=== PATIENT | female | born 1965 | race Caucasian/White ===

== ENCOUNTER 2019-12-19 17:02 | Outpatient (CLI) | payer OTHER, SELFPAY ==
--- NOTE | ~2019-12-19 | XR_ITS ---
EXAMINATION: XR ankle RT min 3V, XR foot RT min 3V EXAM DATE: 12/19/2019 17:38 INDICATION: No known recent injury provided at this time. Pain of the right foot, ankle. TECHNIQUE: Right foot dorsoplantar, lateral and oblique projections obtained and reviewed. Right ank le frontal, lateral and oblique projections obtained and reviewed. There is no prior study for matias mayer. FINDINGS: Right metatarsal bones unremarkable. The right ankle mortise appears intact. There are n o acute fractures or dislocations identified. There is no subcutaneous gas. The soft tissue is unre markable. There are no radiopaque foreign bodies. No periosteal reaction or band of sclerosis to s uggest subacute stress fracture. There are no bony erosions identified. IMPRESSION: 1. Unremarkable right foot, ankle exam. Reviewed, dictated and finalized at location A. IMPRESSION: 1. Unremarkable right foot, ankle exam.
[2019-12-19 18:12] LABS: Basophils Absolute Auto 0.04 K/mm3 (0.00-0.10); Basophils Percent Auto 0.6 % (0.0-1.0); Eosinophils Absolute Auto 0.07 K/mm3 (0.02-0.50); Hematocrit 39.6 % (35.0-49.0); Hemoglobin 12.8 g/dL (12.0-15.0); Immature Granulocyte Absolute 0.01 K/mm3 (0.00-0.00); Immature Granulocyte Percent A 0.1 % (0.0-0.0); Lymphocytes Absolute Auto 2.23 K/mm3 (1.10-4.50); Lymphocytes Percent Auto 32.2 % (18.0-42.0); Mean Corpuscular HGB Conc 32.3 g/dL (32.0-36.0); Mean Corpuscular Hemoglobin 30.7 pg (27.0-31.0); Mean Platelet Volume 10.9 fl (9.2-11.8); Monocytes Absolute Auto 0.49 K/mm3 (0.10-0.90); Monocytes Percent Auto 7.1 % (2.0-11.0); Neutrophils Absolute Auto 4.1 K/mm3 (1.7-7.2); Platelet Count Result 232 K/mm3 (150-420); Red Blood Count 4.17 M/mm3 (4.20-5.40); White Blood Count 6.9 K/mm3 (4.8-10.8)
[2019-12-19 20:11] LABS: Anion Gap 8 mmol/L (8-16); Blood Urea Nitrogen 18 mg/dL (7-18); Carbon Dioxide 31 mmol/L (21-32); Chloride 102 mmol/L (98-108); Estimated Glomerular Filt Rate > 60; Glucose 81 mg/dL (70-99); Magnesium 2.2 mg/dL (1.8-2.4); Osmolality Calculated 292 mOsm/kg (285-295); Sodium 141 mmol/L (136-145); Thyroid Stimulating Hormone 1.93 uIU/mL (0.36-3.74)
[2019-12-23 05:32] LABS: LH 82.2 mIU/mL (***)
== END 2019-12-19 17:03 | disposition home or self-care (01) ==
LOC: CHSLAB 17:07
PROVIDERS: PCP Family Medicine; Visit Provider Family Medicine
DX: M79.10 Myalgia, unspecified site (principal); N91.1 Secondary amenorrhea; M79.604 Pain in right leg
CPT/HCPCS: 36415; 73610; 73630; 80048; 83002; 83735; 84443; 85025

== ENCOUNTER 2019-12-20 21:31 | Emergency (ER) | payer OTHER, SELFPAY ==
--- NOTE | ~2019-12-20 | CT_ITS ---
EXAMINATION: CT brain wo con DATE: 12/20/2019 22:32 INDICATION: Syncope. TECHNIQUE: Computed tomography (CT) of the head was performed without intravenous contrast. The mA wa s adjusted according to patient size. Iterative reconstruction technique was employed. The dose-lengt h product was 605.33 mGy-cm. COMPARISON: None FINDINGS: There is a 1.8 cm mass in left frontoparietal region. There is a 9 mm mass in left frontal lobe. There is extensive vasogenic edema in left frontal and parietal lobes. There is focal vasogenic edema in right frontoparietal region, likely from an occult mass. There is no intracranial hemorrhag e or acute ischemic infarct. There is 4 mm rightward midline shift at the foramen of Monro. There is mild mucosal thickening in the ethmoid sinuses. The mastoid air cells are normal. The orbits are norm al. IMPRESSION: 1. Brain masses, consistent with metastatic disease. Reviewed, dictated and finalized at location A.
--- NOTE | ~2019-12-20 | CT_ITS ---
EXAMINATION: CT chest abdomen pelvis w con DATE: 12/20/2019 22:33 INDICATION: Abdominal bruit. TECHNIQUE: Computed tomography (CT) of the chest, abdomen, and pelvis was performed with 100 mL Omnip aque 350 intravenous contrast. Automated exposure control and iterative reconstruction technique were employed. The dose-length product was 288.72 mGy-cm. COMPARISON: None FINDINGS: CHEST CT: There is mild emphysema. There is mild atelectasis bilaterally. There is mild scarring at the lung ap ices. There is a 3.3 x 2.6 cm mass in right upper lobe. No pleural effusion. The heart size is normal . No pericardial effusion. There is a 6 mm nodule in right thyroid lobe, likely not clinically signif icant. There are no pathologically enlarged lymph nodes. There is severe thoracic spondylosis. ABDOMEN/PELVIS CT: The liver, gallbladder, spleen, pancreas, adrenal glands, and kidneys are normal. There are no dilate d loops of bowel. The appendix is not visualized. Abdominal aorta is normal in caliber. There is mild aortic atherosclerosis. There are no pathologically enlarged lymph nodes. There is no free intraperi toneal fluid. There is mild lumbar spondylosis. IMPRESSION: 1. Right lung upper lobe mass, consistent with primary bronchogenic carcinoma. 2. Mild emphysema. Reviewed, dictated and finalized at location A.
[2019-12-20 21:45] VITALS: BP 125/81; PULSE 62; PULSE 66; RESP 12; TEMP 36.6; O2SAT 100
--- NOTE | 2019-12-20 21:47 | ECG_ITS ---
Measurements Intervals [place] Rate: 74 P: 61 [place]: 150 QRS: 82 QRSD: 88 T: 26 QT: 410 QTc: 457 Interpretive Statements SINUS RHYTHM BASELINE ARTIFACT- II, III, AVR, AVL, AVF, V1-V6 BORDERLINE ECG Electronically Signed On 12-22-2019 7:14:04 CDT by Edy Constantino D.O.
[2019-12-20] MEDS: SODIUM CHLORIDE 0.9% IV 1,000 ML 999 ML IV CONT (22:25)
[2019-12-20 22:42] LABS: Basophils Absolute Auto 0.05 K/mm3 (0.00-0.10); Basophils Percent Auto 0.6 % (0.0-1.0); Eosinophils Percent Auto 1.2 % (1.0-6.0); Hematocrit 34.5 % (35.0-49.0); Hemoglobin 11.3 g/dL (12.0-15.0); Immature Granulocyte Absolute 0.04 K/mm3 (0.00-0.00); Immature Granulocyte Percent A 0.5 % (0.0-0.0); Lymphocytes Absolute Auto 1.55 K/mm3 (1.10-4.50); Lymphocytes Percent Auto 18.7 % (18.0-42.0); Mean Corpuscular HGB Conc 32.8 g/dL (32.0-36.0); Mean Corpuscular Hemoglobin 31.1 pg (27.0-31.0); Mean Platelet Volume 10.2 fl (9.2-11.8); Monocytes Absolute Auto 0.52 K/mm3 (0.10-0.90); Monocytes Percent Auto 6.3 % (2.0-11.0); Neutrophils Percent Auto 72.7 % (50.0-70.0); Platelet Count Result 175 K/mm3 (150-420); Red Blood Count 3.63 M/mm3 (4.20-5.40); Red Cell Distribution Width 12.7 % (11.6-14.4); White Blood Count 8.3 K/mm3 (4.8-10.8)
[2019-12-20 22:59] LABS: Alanine Aminotransferase 19 U/L (14-59); Albumin Level 3.3 g/dL (3.4-5.0); Alkaline Phosphatase 77 U/L (46-116); Anion Gap 7 mmol/L (8-16); Aspartate Amino Transferase 20 U/L (15-37); Bilirubin,Total 0.3 mg/dL (0.00-1.00); Blood Urea Nitrogen 17 mg/dL (7-18); Carbon Dioxide 27 mmol/L (21-32); Chloride 104 mmol/L (98-108); Estimated CRCL calculation 44 ml/min; Estimated Glomerular Filt Rate > 60; Glucose 87 mg/dL (70-99); Osmolality Calculated 286 mOsm/kg (285-295); Potassium 3.7 mmol/L (3.5-5.1); Sodium 138 mmol/L (136-145); Total Protein 6.1 g/dL (6.4-8.2)
[2019-12-20 23:02] LABS: Troponin I < 0.02 ng/mL (0.00-0.056)
--- NOTE | 2019-12-20 23:34 | PC.NURSE ---
REPORT PROVIDED TO TEMITOPE DUONG
--- NOTE | 2019-12-20 23:45 | PC.NURSE ---
REports received, pt. resting c spouse at bedside, ERP discussed reports and need for transfer and f/u care c oncology. PT. and spouse discussing where to go for tx and care. Pt. and spouse request [facility] for cancer tx and will be transferred there if accepted.
--- NOTE | 2019-12-20 23:59 | PC.NURSE ---
Call back from Gurwinder Ritchie, updated report given on pt. and will await callback from hospitalist.
[2019-12-21 00:17] VITALS: BP 134/79; PULSE 69; RESP 18; O2SAT 99
--- NOTE | 2019-12-21 00:18 | ED.SYNCOPE ---
HPI - Syncope General Chief Complaint: Syncope Stated Complaint: ems arrival Source: patient and family Mode of arrival: ambulatory History of Present Illness HPI narrative: this is a 54-year-old female that presents with her after a while they were at home the patient had a syncopal episode witnessed by her lasting approximately 2 to 3 minutes the patient had her eyes open but was unresponsive. The patient had no other symptoms, denies any nausea vomiting no bowel or bladder dysfunction no tongue biting patient has not had a an episode of this nature in the past. Currently the patient has no significant past medical history except for back pain that she takes an occasional Motrin 4. Patient is a smoker approximately 1 pack per day for the last 40 years. Currently the patient feels some that she is lightheaded and has weakness with no neurological deficits, the patient does some expressed that her right foot the arch of the right foot is somewhat contracted that this is been going on for last couple of days and currently no palpitations no chest pain or shortness of breath no nausea vomiting no diarrhea constipation. MD complaint: loss of consciousness Onset (ago): hour(s) Duration of episode: 3 -: minutes(s) Description of event: post-event confusion Prodromal symptoms: none Witnessed: Yes - by Other ( ) Context: at rest Injuries sustained associated with event: none Current symptoms: lightheaded and weakness Related Data Home Medications Medication Instructions Recorded Confirmed No Home Medications 12/20/19 12/20/19 Allergies Allergy/AdvReac Type Severity Reaction Status Date / Time No Known Allergies Allergy Verified 12/20/19 21:49 Review of Systems Review of Systems: All systems reviewed & are unremarkable except as noted in HPI and below [facility] Past Medical History Medical History (Updated 12/21/19 @ 02:23 by Carlton Phillips MD) Chronic back pain Tobacco abuse Exam Const: General: no acute distress and confusion Orientation/consciousness: patient oriented x3 HENMT: Head: normal to inspection Mouth: Yes Normal oral and palatal mucosa present and Yes lip normal Eyes: Conjunctivae: conjunctivae normal Pupils: Equal, round and reactive pupils present EOM: EOMs intact bilaterally Direct Ophthalmoscopy: no photophobia Neck: Neck: normal visual inspection, no lymphadenopathy and no meningeal signs Chest: Chest palpation & inspection: normal inspection of the chest and abnormal inspection of the chest Resp: Effort & Inspection: normal respiratory effort Auscultation: clear to auscultation bilaterally Cardio: Rate: regular rate Rhythm: regular rhythm GI: Auscultation: normal bowel sounds : General: Yes no CVA tenderness Back/Spine/Pelvis: Back: no CVA tenderness Skin: General skin exam: normal color Rashes: no rashes Neuro: General: patient oriented x3, moves all extremities, no meningeal signs and no focal motor deficits Extrem: General: normal to inspection and no pedal edema Psych: Mental Status: mental status grossly normal Course Course Emergency Course: reassessment of patient patient has not had a recent syncopal episode while present in the emergency department, patient continues to have some mild confusion and weakness with lightheadedness. Vital Signs Vital signs: Vital Signs Temperature 36.6 C 12/20/19 21:45 Pulse Rate 62 12/20/19 21:45 Respiratory Rate 12 12/20/19 21:45 Blood Pressure 125/81 12/20/19 21:45 Pulse Oximetry 100 12/20/19 21:45 Temperature 36.3 C L 12/21/19 02:00 Pulse Rate 72 12/21/19 02:00 Respiratory Rate 16 12/21/19 02:00 Blood Pressure 141/78 H 12/21/19 02:00 Pulse Oximetry 99 12/21/19 02:00 MDM - Syncope MDM Narrative Medical decision making narrative: Spoke to [facility] neurology about patient findings and the CT of the brain findings and spoke to Neurology Dr. Polk who has accepted
--- NOTE | 2019-12-21 00:37 | PC.NURSE ---
Call back from Dr. López from [facility], ERP discussing POC. Pt. ambulatory to restroom per self. Per [facility], request for transfer declined and advised transfer to [facility]. Spoke c pt. and spouse, wanting to talk to their daughter about possibly going to [facility].
--- NOTE | 2019-12-21 00:51 | PC.NURSE ---
Spoke c pts. daughter, updates given and family and pt. request transfer to [facility]. Call placed to [facility] for consult and transfer.
[2019-12-21] MEDS: DEXAMETHASONE SOD PHOS INJ 4 MG/ML VIAL 10 MG IV PUSH (01:05)
--- NOTE | 2019-12-21 01:53 | PC.NURSE ---
Call back from [facility] neuro Dr. Polk, spoke to Dr. Phillips and POC to transfer to [facility]. Paperwork signed for transfer and will await callback for assignment and dispo..
[2019-12-21 02:00] VITALS: BP 141/78; PULSE 72; RESP 16; TEMP 36.3; O2SAT 99
[2019-12-21 02:25] VITALS: BP 131/76; PULSE 62; RESP 18; TEMP 36.3; O2SAT 98
--- NOTE | 2019-12-21 02:31 | PC.NURSE ---
Reports given to [facility] via ED-ED report and call placed to [facility] for pt. transfer. Pts. VSS, mon. shows [facility], no c/o at this time. Awaiting EMS for transport.
== END 2019-12-21 02:55 | disposition short-term general hospital (02) ==
PROVIDERS: Emergency Provider Emergency Medicine; PCP Family Medicine
DX: R22.0 Localized swelling, mass and lump, head (principal)
CPT/HCPCS: 36415; 70450; 71260; 74177; 80053; 83605; 83735; 84484; 85025; 93005; 96361; 96374; 99283; 99285; J1100; J7030; Q9965

== ENCOUNTER 2020-07-01 07:32 | Emergency (ER) | payer OTHER, SELFPAY ==
--- NOTE | 2020-07-01 07:59 | ECG_ITS ---
Measurements Intervals [place] Rate: 64 P: 33 [place]: 159 QRS: 62 QRSD: 86 T: 28 QT: 384 QTc: 398 Interpretive Statements SINUS RHYTHM BORDERLINE R WAVE PROGRESSION, ANTERIOR LEADS NONSPECIFIC T-WAVE ABNORMALITY- INFERIOR LEADS BASELINE ARTIFACT- II, III, AVF BORDERLINE ECG Electronically Signed On 07-01-2020 8:28:16 [employer] by Edy Constantino D.O.
[2020-07-01 08:00] VITALS: BP 129/76; PULSE 69; RESP 20; TEMP 36.1; O2SAT 99
[2020-07-01] MEDS: MAG HYDROX/ALUMINUM HYD/SIMETH 30 ML, PHENobarb/HYOSCY/ATROPINE/SCOP 32.4 MG, LIDOCAINE... PO (08:04)
[2020-07-01] MEDS: ONDANSETRON INJ 4 MG/2 ML VIAL IV PUSH (08:05)
[2020-07-01] MEDS: PANTOPRAZOLE SODIUM IV 40 MG VIAL IV PUSH (08:05)
[2020-07-01 08:14] LABS: Basophils Absolute Auto 0.04 K/mm3 (0.00-0.10); Basophils Percent Auto 0.5 % (0.0-1.0); Eosinophils Percent Auto 2.3 % (1.0-6.0); Hematocrit 33.1 % (35.0-49.0); Hemoglobin 11.3 g/dL (12.0-15.0); Immature Granulocyte Absolute 0.03 K/mm3 (0.00-0.00); Immature Granulocyte Percent A 0.4 % (0.0-0.0); Lymphocytes Absolute Auto 0.88 K/mm3 (1.10-4.50); Lymphocytes Percent Auto 10.3 % (18.0-42.0); Mean Corpuscular HGB Conc 34.1 g/dL (32.0-36.0); Mean Corpuscular Hemoglobin 31.3 pg (27.0-31.0); Mean Corpuscular Volume 91.7 fL (78.0-102.0); Mean Platelet Volume 10.2 fl (9.2-11.8); Monocytes Absolute Auto 0.53 K/mm3 (0.10-0.90); Monocytes Percent Auto 6.2 % (2.0-11.0); Neutrophils Absolute Auto 6.9 K/mm3 (1.7-7.2); Neutrophils Percent Auto 80.3 % (50.0-70.0); Platelet Count Result 172 K/mm3 (150-420); Red Blood Count 3.61 M/mm3 (4.20-5.40); Red Cell Distribution Width 12.9 % (11.6-14.4); White Blood Count 8.5 K/mm3 (4.8-10.8)
[2020-07-01 08:32] LABS: Alanine Aminotransferase 114 U/L (14-59); Albumin Level 3.8 g/dL (3.4-5.0); Alkaline Phosphatase 138 U/L (46-116); Anion Gap 7 mmol/L (8-16); Aspartate Amino Transferase 188 U/L (15-37); Bilirubin,Total 0.3 mg/dL (0.00-1.00); Blood Urea Nitrogen 15 mg/dL (7-18); Calcium 8.6 mg/dL (8.5-10.1); Carbon Dioxide 29 mmol/L (21-32); Chloride 103 mmol/L (98-108); Estimated Glomerular Filt Rate > 60; Glucose 99 mg/dL (70-99); Osmolality Calculated 288 mOsm/kg (285-295); Potassium 3.5 mmol/L (3.5-5.1); Sodium 139 mmol/L (136-145); Total Protein 6.6 g/dL (6.4-8.2)
[2020-07-01 08:54] LABS: Appearance Urine Clear (Clear); Bilirubin Urine Negative (Negative); Color Urine Yellow (Yellow); Glucose Urine UA Negative (Negative); Ketones Urine Negative (Negative); Leukocyte Esterase Ur Trace LEU/UL (Negative); Nitrate Urine Negative (Negative); Protein Urine Negative (Negative); Urobilinogen Urine 0.2 mg/dL (0.2-1.0)
[2020-07-01 09:01] LABS: Add Urine Microscopic? YES; Bacteria Urine Trace /hpf; Blood Urine Trace-Intact (Negative); RBC Urine 0-2 /hpf (0-2); Squamous Epithelial Cell Urine Few /hpf (Few); WBC Urine 0-3 /hpf (0-3)
--- NOTE | 2020-07-01 09:07 | ED.ABDPAIN ---
HPI - Abdominal Pain General Chief Complaint: Abdominal Pain Stated Complaint: BURNING IN STOMACH Source: patient and family Mode of arrival: ambulatory Limitations: no limitations History of Present Illness HPI narrative: this is a 55-year-old female ex-smoker that was recently diagnosed with lung cancer with metastases to the brain currently has a port in place, does follow with [facility] cancer center and is receiving chemotherapy. Today the patient presents with severe epigastric burning has tried [id number] medication but she has been nauseated and could not keep that medication down. The patient is having epigastric discomfort burning that she rates about a 710 with no other symptoms except for nausea with no vomiting no flank pain no dysuria no chest pain or shortness of breath. MD elicited complaint: abdominal pain Onset (ago): day(s) Pain Consistency: constant Location: epigastric Severity: moderate Pain scale (0-10): 7 Radiation: none Migration to: no migration Related Data Home Medications Medication Instructions Recorded Confirmed alprazolam 0.5 mg PO TID PRN 07/01/20 07/01/20 levetiracetam 1,000 mg PO BID 07/01/20 07/01/20 Allergies Allergy/AdvReac Type Severity Reaction Status Date / Time No Known Allergies Allergy Verified 12/20/19 21:49 Review of Systems Review of Systems: All systems reviewed & are unremarkable except as noted in HPI and below [facility] Past Medical History Medical History Chronic back pain Tobacco abuse Exam Const: General: no acute distress and alert Orientation/consciousness: patient oriented x3 HENMT: Head: normal to inspection Eyes: Conjunctivae: conjunctivae normal Pupils: Equal, round and reactive pupils present Neck: Neck: normal visual inspection, no lymphadenopathy and no meningeal signs Chest: Chest palpation & inspection: normal inspection of the chest Resp: Effort & Inspection: normal respiratory effort Auscultation: clear to auscultation bilaterally Cardio: Rate: regular rate Rhythm: regular rhythm GI: GI Palp: Yes Tenderness to palpation present (GI) : General: Yes no CVA tenderness Urinary Catheter: Urinary Catheter: patent and draining Back/Spine/Pelvis: Back: no CVA tenderness Neuro: General: patient oriented x3, moves all extremities, no meningeal signs and no focal motor deficits Extrem: General: normal to inspection and no pedal edema Psych: Mental Status: mental status grossly normal Course Course Emergency Course: Reassessment of patient after receiving IV Protonix and a GI cocktail along with Zofran is doing much better as far as her epigastric burning is concerned, advised to keep follow-up appointment at [facility] for her scheduled chemo. Vital Signs Vital signs: Vital Signs Temperature 36.1 C L 07/01/20 08:00 Pulse Rate 69 07/01/20 08:00 Respiratory Rate 20 07/01/20 08:00 Blood Pressure 129/76 07/01/20 08:00 Pulse Oximetry 99 07/01/20 08:00 Temperature 36.1 C L 07/01/20 08:00 Pulse Rate 69 07/01/20 08:00 Respiratory Rate 20 07/01/20 08:00 Blood Pressure 129/76 07/01/20 08:00 Pulse Oximetry 99 07/01/20 08:00 MDM - Abdominal Pain Lab Data Result diagrams: 07/01/20 07:59 07/01/20 07:59 Labs: Lab Results 07/01/20 07/01/20 07/01/20 Range/Units 07:59 07:59 08:45 WBC 8.5 (4.8-10.8) K/mm3 RBC 3.61 L (4.20-5.40) M/mm3 Hgb 11.3 L (12.0-15.0) g/dL Hct 33.1 L (35.0-49.0) % MCV 91.7 (78.0-102.0) fL MCH 31.3 H (27.0-31.0) pg MCHC 34.1 (32.0-36.0) g/dL RDW 12.9 (11.6-14.4) % Plt Count 172 (150-420) K/mm3 MPV 10.2 (9.2-11.8) fl Immature Gran % (Auto) 0.4 H (0.0-0.0) % Neut % (Auto) 80.3 H (50.0-70.0) % Lymph % (Auto) 10.3 L (18.0-42.0) % [place] % (Auto) 6.2 (2.0-11.0) % Eos % (Auto) 2.3 (1.0-6.0) % Baso % (Auto) 0.5
[2020-07-01 09:16] VITALS: BP 116/80; PULSE 89; RESP 16; TEMP 36.2; O2SAT 99
[2020-07-01 09:20] VITALS: BP 116/80; PULSE 89; RESP 20; O2SAT 99
== END 2020-07-01 09:20 | disposition home or self-care (01) ==
PROVIDERS: Nurse Practitioner; Emergency Provider Emergency Medicine; PCP Family Medicine
DX: K52.9 Noninfective gastroenteritis and colitis, unspecified (principal); K57.92 Diverticulitis of intestine, part unspecified, without perforation or abscess without bleeding; K21.9 Gastro-esophageal reflux disease without esophagitis
CPT/HCPCS: 36415; 80053; 81001; 85025; 93005; 96374; 96375; 99283; 99284; A9270; C9113; J2405

== ENCOUNTER 2021-01-29 10:14 | Emergency (ER) | payer OTHER, SELFPAY ==
[2021-01-29 10:50] VITALS: BP 138/87; PULSE 91; RESP 18; TEMP 36.6; O2SAT 100
--- NOTE | 2021-01-29 11:11 | ED.GENADULT ---
HPI - General Adult General Chief complaint: Abdominal Pain Stated complaint: abd pain, nausea, vomiting Source: patient Mode of arrival: ambulatory Limitations: no limitations History of Present Illness HPI narrative: Ilda is a 55F with a PMH of tobacco use, chronic back pain, metastatic lung cancer and GERD that presented to the ED with epigastric pain, nausea and vomiting. She woke up this morning with pain in her epigastric region that radiates to her sides but not back. She has been feeling nauseated. She had non-bloody vomiting. Last BM was yesterday. Her pain isn't as bad now but it is still present. She denies CP, SOB, dysphagia, and diarrhea. She reportedly had a normal CT of her chest and abdomen a few days ago. Related Data Home Medications Medication Instructions Recorded Confirmed alprazolam 0.5 mg PO TID PRN 07/01/20 07/01/20 levetiracetam 1,000 mg PO BID 07/01/20 07/01/20 Allergies Allergy/AdvReac Type Severity Reaction Status Date / Time No Known Allergies Allergy Verified 12/20/19 21:49 Review of Systems Constitutional: Constitutional: Reports no additional constitutional complaints Eyes: Eyes: Reports no additional eye complaints ENT: Reports system reviewed and no additional complaints, except as documented Cardiovascular: Cardiovascular: Reports no additional cardiovascular complaints Respiratory: Respiratory: Reports no additional respiratory complaints Gastrointestinal: Gastrointestinal: Reports as per HPI Genitourinary: Genitourinary: Reports no additional female genitourinary complaints Musculoskeletal: Musculoskeletal: Reports no additional musculoskeletal complaints Integumentary/Breasts: Skin/Breast: Reports system reviewed and no additional complaints, except as docu Neurologic: Reports system reviewed and no additional complaints, except as documented Psychiatric: Psychiatric: Reports no additional psychiatric complaints Endocrine: Endocrine: Reports no additional endocrine complaints Hematologic/Lymphatic: Hematologic/Lymphatic: Reports no additional hematologic/lymphatic complaints Allergic/Immunologic: Allergic/Immunologic: Reports no additional allergic/immunologic complaints [facility] Past Medical History Medical History Chronic back pain Tobacco abuse Exam Const: General: no acute distress and alert Orientation/consciousness: patient oriented x3 Limitations: No altered mental status HENMT: Head: normal to inspection Other: atrauamtic Eyes: Conjunctivae: conjunctivae normal Pupils: Equal, round and reactive pupils present Neck: Neck: normal visual inspection Chest: Chest palpation & inspection: normal inspection of the chest Resp: Effort & Inspection: normal respiratory effort Auscultation: clear to auscultation bilaterally Cardio: Rate: regular rate Rhythm: regular rhythm GI: Inspection: non-distended GI Palp: Yes Soft to palpation, No Tenderness to palpation present (GI) and No Guarding due to palpation present (GI) : General: Yes no CVA tenderness Skin: General skin exam: normal color Rashes: no rashes Neuro: General: patient oriented x3, moves all extremities and no meningeal signs Extrem: General: normal to inspection Psych: Mental Status: mental status grossly normal Course Course Emergency Course: Ilda was evaluated. Ordered zofran and GI cocktail as well as labs. Labs were largely unremarkable. She was given a GI cocktail with good effect. She ate jello without difficulty and was discharged to follow up with her PCP. Vital Signs Vital signs: Vital Signs Temperature 97.9 F 01/29/21 10:50 Pulse Rate 91 01/29/21 10:50 Respiratory Rate 18 01/29/21 10:50 Blood Pressure 138/87 01/29/21 10:50 Pulse Oximetry 100 01/29/21 10:50 Temperature 97.9 F 01/29/21 10:50 Pulse Rate 88 01/29/21 12:08 Respiratory Rate 16 01/29/21 12:08 Blood Pressure 134/87
[2021-01-29 11:28] LABS: Basophils Absolute Auto 0.04 K/mm3 (0.00-0.10); Basophils Percent Auto 0.3 % (0.0-1.0); Eosinophils Absolute Auto 0.09 K/mm3 (0.02-0.50); Eosinophils Percent Auto 0.7 % (1.0-6.0); Hematocrit 35.6 % (35.0-49.0); Hemoglobin 11.7 g/dL (12.0-15.0); Immature Granulocyte Absolute 0.06 K/mm3 (0.00-0.00); Immature Granulocyte Percent A 0.4 % (0.0-0.0); Lymphocytes Absolute Auto 0.46 K/mm3 (1.10-4.50); Lymphocytes Percent Auto 3.4 % (18.0-42.0); Mean Corpuscular HGB Conc 32.9 g/dL (32.0-36.0); Mean Corpuscular Hemoglobin 30.5 pg (27.0-31.0); Monocytes Absolute Auto 0.88 K/mm3 (0.10-0.90); Monocytes Percent Auto 6.4 % (2.0-11.0); Neutrophils Absolute Auto 12.1 K/mm3 (1.7-7.2); Neutrophils Percent Auto 88.8 % (50.0-70.0); Platelet Count Result 230 K/mm3 (150-420); Red Blood Count 3.83 M/mm3 (4.20-5.40); Red Cell Distribution Width 12.5 % (11.6-14.4); White Blood Count 13.7 K/mm3 (4.8-10.8)
[2021-01-29 11:35] LABS: Appearance Urine Clear (Clear); Bilirubin Urine Negative (Negative); Color Urine Light Yellow (Yellow); Glucose Urine UA Negative (Negative); Ketones Urine Negative (Negative); Leukocyte Esterase Ur Trace (Negative); Nitrate Urine Negative (Negative); Protein Urine Negative (Negative); Urobilinogen Urine 0.2 mg/dL (0.2-1.0)
[2021-01-29 11:38] LABS: Add Urine Microscopic? YES; Blood Urine Trace-lysed (Negative); RBC Urine None seen /hpf (0-2); Squamous Epithelial Cell Urine Few /hpf (Few); WBC Urine None seen /hpf (0-3)
[2021-01-29 11:39] LABS: Bacteria Urine Trace /hpf
[2021-01-29 11:40] LABS: Pregnancy On Board Control Positive; Urine Pregnancy Test Negative
[2021-01-29 11:40] LABS: Prothrombin Time 10.5 Seconds (9.50-12.10)
[2021-01-29] MEDS: ONDANSETRON INJ 4 MG/2 ML VIAL IV PUSH (11:44)
[2021-01-29] MEDS: MAG HYDROX/ALUMINUM HYD/SIMETH 30 ML, PHENobarb/HYOSCY/ATROPINE/SCOP 32.4 MG, LIDOCAINE... PO (11:44)
[2021-01-29 11:48] LABS: Alanine Aminotransferase 44 U/L (14-59); Alkaline Phosphatase 89 U/L (46-116); Anion Gap 12 mmol/L (8-16); Aspartate Amino Transferase 54 U/L (15-37); Bilirubin,Total 0.4 mg/dL (0.00-1.00); Blood Urea Nitrogen 20 mg/dL (7-18); Calcium 8.9 mg/dL (8.5-10.1); Carbon Dioxide 28 mmol/L (21-32); Chloride 104 mmol/L (98-108); Estimated Glomerular Filt Rate > 60; Glucose 97 mg/dL (70-99); Lipase 146 U/L (73-393); Osmolality Calculated 300 mOsm/kg (285-295); Potassium 3.7 mmol/L (3.5-5.1); Sodium 144 mmol/L (136-145); Total Protein 6.9 g/dL (6.4-8.2)
[2021-01-29 11:49] LABS: CRP < 0.5 mg/dL (0.0-0.9); Troponin I 5.7 ng/L (0.00-60.4)
--- NOTE | 2021-01-29 12:04 | PC.NURSE ---
pt voices much nausea and pain relief after meds given
[2021-01-29 12:08] VITALS: BP 134/87; PULSE 88; RESP 16; O2SAT 98
== END 2021-01-29 12:54 | disposition home or self-care (01) ==
PROVIDERS: Emergency Provider Family Medicine; PCP Family Medicine
DX: K21.9 Gastro-esophageal reflux disease without esophagitis (principal)
CPT/HCPCS: 36415; 80053; 81001; 81025; 83605; 83690; 84484; 85025; 85610; 86140; 96374; 99283; 99284; A9270; J2405

== ENCOUNTER 2022-03-07 13:31 | Emergency (ER) | payer OTHER, SELFPAY ==
--- NOTE | ~2022-03-07 | XR_ITS ---
XR chest 2V DATE: 03/07/2022 15:14 INDICATION: Cough, fever. History of brain and lung cancer. TECHNIQUE: 2 views COMPARISON: 12/20/2019 CT chest FINDINGS: There is bilateral hyperinflation consistent with COPD. No pulmonary infiltrate or consolidation or pulmonary mass lesion is evident. No pleural effusion or pulmonary vascular congestion or pneumothorax. Normal heart size. Aortic arch calcification. No hilar or mediastinal enlargement. Right Port-A-Cath catheter, tip overlying superior vena cava. IMPRESSION: Right Port-A-Cath catheter in superior vena cava Bilateral hyperinflation consistent with COPD No active cardiopulmonary disease Reviewed, dictated and finalized at location A.
[2022-03-07 13:35] VITALS: BP 153/87; PULSE 87; RESP 18; TEMP 37.3; O2SAT 96
--- NOTE | 2022-03-07 13:47 | ECG_ITS ---
Measurements Intervals [place] Rate: 87 P: 59 DC: 148 QRS: 39 QRSD: 89 T: 21 QT: 292 QTc: 353 Interpretive Statements SINUS RHYTHM POOR R WAVE PROGRESSION, ANTERIOR LEADS NONSPECIFIC T-WAVE ABNORMALITY- INFERIOR LEADS BASELINE ARTIFACT- I, II, III, AVR, AVL, AVF, V6 BORDERLINE ECG COMPARED TO ECG 07/01/2020 08:14:21 NO SIGNIFICANT CHANGES Electronically Signed On 03-07-2022 14:13:06 CDT by Edy Constantino D.O.
[2022-03-07 14:00] VITALS: PULSE 85; RESP 16; O2SAT 94
[2022-03-07] MEDS: ALBUTEROL SULFATE NEB 2.5 MG/3 ML INH 5 MG INHALATION (14:02)
--- NOTE | 2022-03-07 14:05 | ED.GENADULT ---
HPI - General Adult General Chief complaint: Upper Respiratory Infection Stated complaint: fever/cough/not feeling good Time Seen by Provider: 03/07/22 13:44 Source: patient Mode of arrival: ambulatory Limitations: no limitations History of Present Illness HPI narrative: Patient is a 57-year-old white female with a history of brain and lung cancer currently getting immunosuppressive chemo therapy. Presents to the emergency room with cough productive of clear sputum and fever that started 4 days ago. She denies any chest pain shortness of breath or pleuritic chest pain. She said she has been wheezing. She is followed by Dr. Brodie collins oncology. . She is on special chemotherapy and she says she can only take certain medications so as not to disrupt her study medications. She starting on her 3rd year since diagnosis of her lung and brain cancer. She said her brain cancers gone secondary to her oncology treatment. She had some dry heaves this morning. Denies any rash or itching. Denies any other complain Related Data Home Medications Medication Instructions Recorded Confirmed escitalopram oxalate 10 mg tablet 10 mg PO DAILY 03/07/22 03/07/22 prochlorperazine maleate 10 mg 10 mg PO TID PRN Nausea 03/07/22 03/07/22 tablet Allergies Allergy/AdvReac Type Severity Reaction Status Date / Time No Known Allergies Allergy Verified 03/07/22 13:44 Review of Systems Review of Systems: All systems reviewed & are unremarkable except as noted in HPI and below Constitutional: Constitutional: Reports as per HPI, Reports no additional constitutional complaints, Reports fatigue and Reports fever(s) Eyes: Eyes: Reports no additional eye complaints ENT: Reports system reviewed and no additional complaints, except as documented Cardiovascular: Cardiovascular: Reports no additional cardiovascular complaints Respiratory: Respiratory: Reports no additional respiratory complaints, Reports cough, Denies dyspnea and Reports wheezing Gastrointestinal: Gastrointestinal: Reports no additional gastrointestinal complaints, Reports nausea and Reports vomiting Genitourinary: Genitourinary: Reports no additional female genitourinary complaints Musculoskeletal: Musculoskeletal: Reports no additional musculoskeletal complaints Integumentary/Breasts: Skin/Breast: Reports system reviewed and no additional complaints, except as docu Neurologic: Reports system reviewed and no additional complaints, except as documented Psychiatric: Psychiatric: Reports no additional psychiatric complaints Endocrine: Endocrine: Reports no additional endocrine complaints [facility] Past Medical History Medical History (Updated 03/07/22 @ 15:30 by Duke Huffman MD) Brain cancer Chronic back pain Lung cancer Tobacco abuse Exam Narrative: patient is a pleasant white female she appears in no apparent distress blood pressure 153/87 pulse is 87 respirations 18, temperature 37.3? centigrade, O2 sat on room air and 96%. She appears healthy she is alert and oriented x4 there is no limitations to history or physical exam taking. Head normocephalic atraumatic eyes conjunctiva pink sclera nonicteric oropharynx is clear with moist mucous membranes without exudates neck is supple without lymphadenopathy lungs are clear with good air exchange. Heart is regular rate rhythm without murmurs gallops rubs. Abdomen soft nontender no hepatosplenomegaly or masses no CVA tenderness no abdominal bruits. Back is nontender. Extremities no cyanosis clubbing or edema negative Homans sign bilaterally. Neurologic is she is alert and oriented x4. Motor and sensory grossly intact gait is normal speech is normal. Course Course Emergency Course: Discussed with Dr. Brodie Ball nurse Shanna: She said she could have ibuprofen just does not want her to have a round the clock. We can give her any medicine that we want they just wanted know what medicine it was
--- NOTE | 2022-03-07 14:05 | PC.NURSE ---
Covid PCR sent to lab
[2022-03-07 14:10] VITALS: PULSE 84; RESP 16; O2SAT 99
[2022-03-07 14:19] LABS: Basophils Absolute Auto 0.03 K/mm3 (0.00-0.10); Basophils Percent Auto 0.4 % (0.0-1.0); Eosinophils Absolute Auto 0.02 K/mm3 (0.02-0.50); Eosinophils Percent Auto 0.3 % (1.0-6.0); Hematocrit 36.8 % (35.0-49.0); Hemoglobin 12.2 g/dL (12.0-15.0); Immature Granulocyte Absolute 0.02 K/mm3 (0.00-0.00); Immature Granulocyte Percent A 0.3 % (0.0-0.0); Lymphocytes Absolute Auto 0.38 K/mm3 (1.10-4.50); Lymphocytes Percent Auto 5.6 % (18.0-42.0); Mean Corpuscular HGB Conc 33.2 g/dL (32.0-36.0); Mean Corpuscular Hemoglobin 30.1 pg (27.0-31.0); Mean Corpuscular Volume 90.9 fL (78.0-102.0); Monocytes Absolute Auto 0.41 K/mm3 (0.10-0.90); Neutrophils Percent Auto 87.4 % (50.0-70.0); Platelet Count Result 198 K/mm3 (150-420); Red Blood Count 4.05 M/mm3 (4.20-5.40); Red Cell Distribution Width 12.8 % (11.6-14.4); White Blood Count 6.8 K/mm3 (4.8-10.8)
[2022-03-07] MEDS: IBUPROFEN 400 MG TABLET PO (14:27)
[2022-03-07 14:30] VITALS: BP 147/80; PULSE 84; RESP 16; O2SAT 96
[2022-03-07 14:33] LABS: Partial Thromboplastin Time 30.8 SEC (23.90-30.70)
[2022-03-07 14:39] LABS: Alanine Aminotransferase 16 U/L (14-59); Alkaline Phosphatase 83 U/L (46-116); Anion Gap 11 mmol/L (8-16); Aspartate Amino Transferase 19 U/L (15-37); Bilirubin,Total 0.5 mg/dL (0.00-1.00); Blood Urea Nitrogen 11 mg/dL (7-18); Calcium 8.6 mg/dL (8.5-10.1); Carbon Dioxide 26 mmol/L (21-32); Chloride 102 mmol/L (98-108); Estimated CRCL calculation 39 ml/min; Estimated Glomerular Filt Rate 54; Glucose 113 mg/dL (70-99); Magnesium 1.7 mg/dL (1.8-2.4); Osmolality Calculated 288 mOsm/kg (285-295); Potassium 3.4 mmol/L (3.5-5.1); Sodium 139 mmol/L (136-145); Total Protein 7.4 g/dL (6.4-8.2)
[2022-03-07 14:40] LABS: Troponin I 11.9 ng/L (0.00-60.4)
[2022-03-07 14:48] LABS: Influenza A QL RT-PCR Negative (Negative); Influenza B QL RT-PCR Negative (Negative); SARS-CoV-2 RNA PCR Negative (Negative)
[2022-03-07 15:06] LABS: RSV RNA, RT-PCR Positive (Negative)
[2022-03-07 15:45] VITALS: BP 128/80; PULSE 74; RESP 16; TEMP 36.3; O2SAT 95
== END 2022-03-07 15:50 | disposition home or self-care (01) ==
PROVIDERS: Emergency Provider Emergency Medicine; PCP Family Medicine
DX: J44.9 Chronic obstructive pulmonary disease, unspecified (principal); B97.4 Respiratory syncytial virus as the cause of diseases classified elsewhere; Z20.822 Contact with and (suspected) exposure to COVID-19
CPT/HCPCS: 36415; 71046; 80053; 83735; 84484; 85025; 85610; 85730; 87040; 87502; 87637; 93005; 94640; 99284; A9270; U0003; U0005

== ENCOUNTER 2022-07-25 23:37 | Emergency (ER) | payer OTHER, SELFPAY ==
--- NOTE | ~2022-07-25 | CT_ITS ---
CT ANGIOGRAM NECK AND HEAD History: CVA, right hemiparesis. Technique: Serial spiral axial images through the head and neck were obtained during arterial phase I V injection of 100 cc of Omnipaque 350. 3-D postprocessing and MIP images were then reconstructed on the remote workstation. Dose reduction technique was used on this scan by utilizing automated exposur e control and iterative reconstruction technique. The dose-length product (DLP) was 1004.54 mGy-cm. CTA neck findings: Bilateral vertebral arteries are patent. Bilateral common carotid, internal carot id, and external carotid arteries are patent. No stenosis, large vessel occlusion, or aneurysm. The p roximal right internal carotid artery demonstrates 0% stenosis relative to the normal distal artery l umen diameter. The proximal left internal carotid artery demonstrates 0% stenosis relative to the nor mal distal artery lumen diameter. CTA head findings: Distal vertebral arteries, basilar artery, and posterior cerebral arteries are pat ent. Distal internal carotid arteries, middle cerebral arteries, and anterior cerebral arteries are p atent. Incidental note is made of a 2.0 x 1.7 cm mildly irregular pulmonary nodule in the right upper lobe, which is significantly decreased in size as compared to lesion present on prior CT dated 12/20/2019. Impression: No vascular abnormality evident. 2.0 x 1.7 cm right upper lobe pulmonary nodule. This is significantly decrease as compared to 12/20/19 20, and could reflect sequela of treated neoplastic disease. Recurrent disease is difficult to exclud e given the relative time interval between the exams. Correlation with any other prior exams and/or t reatment history is recommended. Reviewed, dictated and finalized at location . Impression: No vascular abnormality evident. 2.0 x 1.7 cm right upper lobe pulmonary nodule. This is significantly decrease as compared to 12/20/2019, and could reflect sequela of treated neoplastic disea se. Recurrent disease is difficult to exclude given the relative time interval between the exams. Correlation with any other prior exams and/or treatment hist ory is recommended.
--- NOTE | ~2022-07-25 | XR_ITS ---
Portable chest x-ray Comparison: 03/07/2022 Clinical History: CVA Findings: Right-sided Mediport is unchanged. Small right apical density is present. Lungs are otherw ise clear. Cardiomediastinal silhouette is stable. Bones and soft tissues are unremarkable. Impression: Stable small right apical density. This could reflect sequelae of treated disease. Stable right-sided Mediport. Reviewed, dictated and finalized at location M. Impression: Stable small right apical density. This could reflect sequelae of treated disea se. Stable right-sided Mediport.
--- NOTE | ~2022-07-25 | CT_ITS ---
Non-contrast Head CT History: CVA COMPARISON: 12/20/2019 Technique: Axial non-contrast imaging of the brain was performed. Dose reduction technique was used on this scan by utilizing automated exposure control and iterative reconstruction technique. The dose -length product (DLP) was 605.33 mGy-cm. Findings: There is no evidence of intracranial hemorrhage, mass lesion, or acute infarct. There are probable minimal chronic white matter changes in the periventricular white matter. The ventricles an d subarachnoid spaces are normal in size. The calvarium appears normal. The visualized paranasal si nuses and mastoid air cells are clear. Impression: No acute abnormality evident. Probable minimal chronic white matter changes. Reviewed, dictated and finalized at location . Impression: No acute abnormality evident. Probable minimal chronic white matter changes.
[2022-07-25 23:37] VITALS: BP 126/67; PULSE 68; RESP 18; TEMP 36.7; O2SAT 98
--- NOTE | 2022-07-25 23:50 | ED.NEUROSD ---
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 Tonight at 10:45 p.m. she was brushing her teeth in her arms did not work. Had slurred speech and right-sided weakness. She brings brought in by her family. No history of stroke she has had history of hypertension anxiety the cancer as above. she goes to [facility] for oncology and currently on immunosuppressive therapy. 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 <Duke Huffman MD - Last Filed: 07/26/22 07:20> Time: 23:37 <Duke Huffman MD - Last Filed: 07/26/22 07:20> Last Observed Normal: 22:45 <Duke Huffman MD - Last Filed: 07/26/22 07:20> Location: speech, right face, dysarthria, right arm and right leg <Duke Huffman MD - Last Filed: 07/26/22 07:20> History of same: No <Duke Huffman MD - Last Filed: 07/26/22 07:20> Severity: moderate <Duke Huffman MD - Last Filed: 07/26/22 07:20> Quality: weak and constant <Duke Huffman MD - Last Filed: 07/26/22 07:20> Relieving factors: none <Duke Huffman MD - Last Filed: 07/26/22 07:20> Exacerbating factors: none <Duke Huffman MD - Last Filed: 07/26/22 07:20> Context: sudden onset <Duke Huffman MD - Last Filed: 07/26/22 07:20> On Anticoagulants: No <Duke Huffman MD - Last Filed: 07/26/22 07:20> Associated symptoms: denies other symptoms and weakness <Duke Huffman MD - Last Filed: 07/26/22 07:20> Treatments Prior to Arrival: none <Duke Huffman MD - Last Filed: 07/26/22 07:20> Related Data Home Medications: Home Medications Medication Instructions Recorded Confirmed escitalopram oxalate 10 mg tablet 10 mg PO DAILY 03/07/22 07/26/22 prochlorperazine maleate 10 mg 10 mg PO TID PRN Nausea 03/07/22 07/26/22 tablet alprazolam 0.5 mg tablet 0.5 mg PO BID 07/26/22 07/26/22 fluticasone propionate 50 50 mcg intranasal DAILY PRN 07/26/22 07/26/22 mcg/actuation nasal Congestion spray,suspension prednisone 5 mg tablet 5 mg PO DAILY 07/26/22 07/26/22 <Duke Huffman MD - Last Filed: 07/26/22 07:20> Allergies/Adverse Reactions: Allergies Allergy/AdvReac Type Severity Reaction Status Date / Time No Known Allergies Allergy Verified 07/26/22 00:12 <Duke Huffman MD - Last Filed: 07/26/22 07:20> Review of Systems Constitutional: Constitutional: Denies body ache(s), Denies chills, Denies daytime sleepiness, Denies fatigue, Denies fever(s), Denies headache(s), Denies increased appetite and Denies lethargy <Duke Huffman MD - Last Filed: 07/26/22 07:20> Eyes: Eyes: Reports no additional eye complaints <Duke Huffman MD - Last Filed: 07/26/22 07:20> ENT: Reports system reviewed and no additional complaints, except as documented, Reports Normal hearing present, Denies dysphagia, Denies dry mouth, Denies epistaxis and Denies mouth pain <Duke Huffman MD - Last Filed: 07/26/22 07:20> Cardiovascular: Cardiovascular: Reports no additional cardiovascular complaints, Denies chest pain, Denies irregular heart rhythm and Denies lightheadedness <Duke Huffman MD - Last Filed: 07/26/22 07:20> Respiratory: Respiratory: Repor
--- NOTE | 2022-07-25 23:51 | ECG_ITS ---
Measurements Intervals [place] Rate: 61 P: 30 MI: 148 QRS: 63 QRSD: 81 T: 16 QT: 405 QTc: 410 Interpretive Statements SINUS RHYTHM NONSPECIFIC ST & T-WAVE ABNORMALITY- DIFFUSE LEADS BASELINE ARTIFACT- II, III, AVR, AVL, AVF BORDERLINE ECG COMPARED TO ECG 03/07/2022 14:02:48 NO SIGNIFICANT CHANGES Electronically Signed On 07-26-2022 6:45:22 CDT by Edy Constantino D.O.
[2022-07-25 23:58] LABS: Glucose Point of Care 93 mg/dl (65-105)
--- NOTE | 2022-07-25 23:59 | PC.NURSE ---
Call placed to [facility] for standby and weather check to [place]. [facility] declined at this time due to weather instabillity.
[2022-07-26] VITALS (76 sets, daily range): BP systolic 109–160; BP diastolic 52–119; PULSE 53–89; RESP 13–20; TEMP 36.5–36.6; O2SAT 92–100
[2022-07-26 00:04] LABS: Basophils Absolute Auto 0.09 K/mm3 (0.00-0.10); Basophils Percent Auto 1.3 % (0.0-1.0); Eosinophils Absolute Auto 0.18 K/mm3 (0.02-0.50); Eosinophils Percent Auto 2.5 % (1.0-6.0); Hematocrit 34.2 % (35.0-49.0); Immature Granulocyte Absolute 0.03 K/mm3 (0.00-0.00); Immature Granulocyte Percent A 0.4 % (0.0-0.0); Lymphocytes Absolute Auto 1.86 K/mm3 (1.10-4.50); Lymphocytes Percent Auto 25.8 % (18.0-42.0); Mean Corpuscular HGB Conc 32.2 g/dL (32.0-36.0); Mean Corpuscular Hemoglobin 29.6 pg (27.0-31.0); Mean Corpuscular Volume 92.2 fL (78.0-102.0); Mean Platelet Volume 10.6 fl (9.2-11.8); Monocytes Absolute Auto 0.77 K/mm3 (0.10-0.90); Monocytes Percent Auto 10.7 % (2.0-11.0); Neutrophils Absolute Auto 4.3 K/mm3 (1.7-7.2); Neutrophils Percent Auto 59.3 % (50.0-70.0); Platelet Count Result 209 K/mm3 (150-420); Red Blood Count 3.71 M/mm3 (4.20-5.40); Red Cell Distribution Width 13.5 % (11.6-14.4); White Blood Count 7.2 K/mm3 (4.8-10.8)
[2022-07-26 00:16] LABS: INR 0.9; Prothrombin Time 10.4 Seconds (9.50-12.10)
[2022-07-26 00:20] LABS: Alanine Aminotransferase 16 U/L (14-59); Albumin Level 3.5 g/dL (3.4-5.0); Alkaline Phosphatase 83 U/L (46-116); Anion Gap 9 mmol/L (8-16); Aspartate Amino Transferase 20 U/L (15-37); Bilirubin,Total 0.2 mg/dL (0.00-1.00); Blood Urea Nitrogen 13 mg/dL (7-18); Calcium 8.5 mg/dL (8.5-10.1); Carbon Dioxide 30 mmol/L (21-32); Chloride 105 mmol/L (98-108); Estimated Glomerular Filt Rate 45; Glucose 93 mg/dL (70-99); Osmolality Calculated 298 mOsm/kg (285-295); Sodium 144 mmol/L (136-145); Total Protein 6.6 g/dL (6.4-8.2); Troponin I 9.9 ng/L (0.00-60.4)
[2022-07-26 00:21] LABS: Ethanol < 3 mg/dL (0-6)
[2022-07-26 01:05] LABS: Appearance Urine Clear (Clear); Color Urine Light Yellow (Yellow)
[2022-07-26 01:06] LABS: Bilirubin Urine Negative (Negative); Blood Urine Negative (Negative); Glucose Urine UA Negative (Negative); Ketones Urine Negative (Negative); Leukocyte Esterase Ur Trace LEU/UL (Negative); Nitrate Urine Negative (Negative); Protein Urine Negative (Negative); Urobilinogen Urine 0.2 mg/dL (0.2-1.0)
[2022-07-26 01:10] LABS: Add Urine Microscopic? YES; Bacteria Urine Trace /hpf; RBC Urine 0-2 /hpf (0-2); Squamous Epithelial Cell Urine Rare /hpf (Few); WBC Urine 0-3 /hpf (0-3)
[2022-07-26 02:06] LABS: SARS-CoV-2 RNA PCR Negative (Negative)
--- NOTE | 2022-07-26 09:34 | PC.NURSE ---
0930 order received for pt to take her home meds pt passed swallow tests breakfast ordered
--- NOTE | 2022-07-26 09:39 | PC.NURSE ---
yellow fall clasp applie to pt arm band
--- NOTE | 2022-07-26 18:35 | PC.NURSE ---
On 07/26/22, the student, [dominique hallman ], provided care and completed [facility] documentation on this patient. I have reviewed the student's documentation and agree with the findings.
--- NOTE | 2022-07-26 19:02 | PC.NURSE ---
[id number] pt took home meds brought by pt took meds without difficulty
--- NOTE | 2022-07-26 19:11 | PC.NURSE ---
Care resumed, report received, pt resting, no distress, watching TV, call mcintosh at pt side, continuing to monitor until bed available at [place].
--- NOTE | 2022-07-26 19:40 | PC.NURSE ---
Pt assisted x1 into w/c and to BR to urinate, pt back to bed s little assistance.
--- NOTE | 2022-07-26 20:03 | PC.NURSE ---
Pt given her Xanax HS med from home per MD schafer.
--- NOTE | 2022-07-26 20:04 | PC.NURSE ---
Call placed to [facility] and report given, pt going to [facility] [id number] Bed 1.
--- NOTE | 2022-07-26 20:37 | PC.NURSE ---
[facility] here for pt transfer. Report given, pt taken to BR to urinate and placed on cot s difficulty. VSS.
== END 2022-07-26 20:41 | disposition short-term general hospital (02) ==
PROVIDERS: Emergency Medicine; Emergency Provider Emergency Medicine; PCP Family Medicine
DX: G81.91 Hemiplegia, unspecified affecting right dominant side (principal); C34.90 Malignant neoplasm of unspecified part of unspecified bronchus or lung; C79.31 Secondary malignant neoplasm of brain; Z20.822 Contact with and (suspected) exposure to COVID-19
CPT/HCPCS: 36415; 70450; 70496; 70498; 71045; 80053; 80307; 81001; 82948; 84484; 85025; 85610; 85730; 93005; 99285; Q9967; U0003; U0005

== ENCOUNTER 2022-08-14 13:00 | Outpatient (RCR) | payer OTHER, SELFPAY ==
--- NOTE | 2022-08-14 14:50 | PTOPEVAL1 ---
Assessment and note entered by Carlton De Leon Evaluation Information Assessment Status Evaluation Diagnosis right sided weakness due to stroke Onset 07/25/22 Subjective Information Pt. reports that on the night of 07/25/22 she developed weakness in the right arm. She immediately went to the hospital and was in [place] for 1 week. She reports that she was in [facility] for 1 week following that stay. She states that she is having most difficulty with the right hand. She is right hand dominant. She states that she has some weakness in the right leg, but it is minimal and she can now walk. She denies any pain. She states that she requires assist to get into and out of the bathtub. She also notes that she needs some help with grooming, but is able to dress herself. 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 Reported Pain Level Pain Score 0: Self Report Assessment PT Clinical Summary Pt. is a 57 year old female who enters the clinic with right u.e. and l.e. weakness following CVA. She presents with impaired u.e. and l.e. strength, impaired balance, impaired gait and functional decline. Continued skilled PT is indicated in order to improve these areas to allow the pt. 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 Plan of Care Interventions Gait Training,Manual Therapy,Neuro Re-education, Patient/Caregiver Educati,Therapeutic Activities, Therapeutic Exercise,Self-Care/Home Management PT Services Indicated Yes Treatment Frequency and 3x/week x 12 visits Duration These treatments will address the objective and functional deficits as defined above. The patient will be advanced safely and appropriately in order for the patient to progress towards his/her prior level of function. Additional exercises will be introduced and as well as a comprehensive home exercise program upon discharge, if needed, ?to ensure carryover of functional gains achieved in the clinic. This treatment plan has been reviewed and agreement upon by the patient.
--- NOTE | 2022-09-12 18:08 | PTOPPROGNS ---
Assessment and note entered by Wanda Bee DPT Evaluation Information Assessment Status Progress Diagnosis right sided weakness due to stroke Onset 07/25/22 Subjective Information Ilda reports that she he has noticed an improvement in LE strength and endurance. She reports that she does notice a bit of a limp. 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 Assessment PT Clinical Summary Mrs. Huff has attended 10 visits of PT with improvements in balance and strength. 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 She will benefit from continued skilled PT with increased focus of R hand fine motor skills. Plan of Care Interventions Gait Training,Manual Therapy,Neuro Re-education, Patient/Caregiver Educati,Therapeutic Activities, Therapeutic Exercise,Self-Care/Home Management PT Services Indicated Yes Treatment Frequency and continue with current POC Duration These treatments will address the objective and functional deficits as defined above. The patient will be advanced safely and appropriately in order for the patient to progress towards his/her prior level of function. Additional exercises will be introduced and as well as a comprehensive home exercise program upon discharge, if needed, ?to ensure carryover of functional gains achieved in the clinic. This treatment plan has been reviewed and agreement upon by the patient.
--- NOTE | 2022-09-21 10:54 | PTOPREEVAL ---
Assessment and note entered by JT File, PT Evaluation Information Assessment Status Re-evaluation Diagnosis right sided weakness due to stroke Onset 07/25/22 Subjective Information patient reports she feels good this date. she reports she feels she is doing well with her walking and balance. however, she reports she feels her R UE is still weak. she reports she also still limps and would like to walk without a limp . Reported Pain Level Pain Score 0: Self Report Assessment PT Clinical Summary mrs. wilder presents to skilled PT services for her 12th skilled therapy visit. as of today, she presents with improvements in strength, balance, coordination, ambulation, and endurance. however, she continues to display weakness in the R UE, classification and treatment director weakness, decreased coordination of the feet, and abnormal gait mechanics. she has met more than 50% of goals, and made progress toward all other. she displays low fall risk per the tinetti, TUG, and 5x sit to stand. she also displays adequate endurance and gait speed, but continued abnormalities in gait mechanics. she would benefit from continued skilled PT to achieve remaining goals and return to her prior level functional activity performance/quality of life. Plan of Care Interventions Gait Training,Manual Therapy,Neuro Re-education, Patient/Caregiver Educati,Therapeutic Activities, Therapeutic Exercise,Self-Care/Home Management PT Services Indicated Yes Treatment Frequency and continue skilled PT 2x weekly for 6 more visits Duration These treatments will address the objective and functional deficits as defined above. The patient will be advanced safely and appropriately in order for the patient to progress towards his/her prior level of function. Additional exercises will be introduced and as well as a comprehensive home exercise program upon discharge, if needed, ?to ensure carryover of functional gains achieved in the clinic. This treatment plan has been reviewed and agreement upon by the patient.
--- NOTE | 2022-10-09 08:19 | PTOPDC ---
Assessment and note entered by Wanda Bee DPT Evaluation Information Assessment Status Re-evaluation Diagnosis right sided weakness due to stroke Onset 07/25/22 Subjective Information Patient reports much improvement in use of R hand. She states she has been able to wash her own hair and open objects. She reports return to MD . Assessment PT Clinical Summary Patient was seen for 18 visits of skilled PT with good improvements in LE strength, balance, and use of R UE. She has improved ability to perform personal hygiene tasks and house hold tasks. She has not returned to work at this time. Patient is independent with HEP and will be discharged to independent HEP at this time. Plan of Care PT Services Indicated No
--- NOTE | 2022-10-20 12:13 | BUOTOPEVAL ---
Assessment and note entered by Mikala Rueda, OT Evaluation Information Assessment Status Evaluation Diagnosis Basal ganglia stroke Onset July 2022 Reported Pain Level Pain Score 0: Self Report Pain Score 0: Self Report Pain Score 0: Self Report Pain Score 0: Self Report Pain Score 0: Self Report Pain Score 0: Self Report Pain Score 0: Self Report Pain Score 0: Self Report Pain Score 0: Self Report Pain Score 0: Self Report Pain Score 0: Self Report Pain Score 0: Self Report Pain Score 0: Self Report Pain Score 0: Self Report Pain Score 0: Self Report Pain Score 0: Self Report Pain Score 0: Self Report Pain Score 0: Self Report Pain Score 0: Self Report Pain Score 0: Self Report Additional Pain Score Comments Pt. has no c/o pain. Assessment OT Clinical Summary The patient is a 57 year old female who was referred to outpatient OT due to R sided weakness from stroke. The patient's PMH includes but is not limited to cancer, stroke. 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 The patient previously demonstrated WNL endurance, UE strength, command and control systems integrator/ pinch and fine motor coordination. The patient requires skilled OT to address current deficits and return to PLOF needed to complete ADLs and care for loved ones. Plan of Care Interventions Therapeutic Exercise,Manual Therapy,Neuro Re- education,Therapeutic Activities,Hot Pack/Cold Pack,Electrical Stimulation,Self-Care/Home Management OT Services Indicated Yes Treatment Frequency and 2x/week for 10 visits. Duration These treatments will address the objective and functional deficits as defined above. The patient will be advanced safely and appropriately in order for the patient to progress towards his/her prior level of function. Additional exercises will be introduced and as well as a comprehensive home exercise program upon dischar
--- NOTE | 2022-12-05 16:42 | BUOTOPEVAL ---
Assessment and note entered by Mikala Rueda OT Evaluation Information Assessment Status Re-evaluation Diagnosis Basal ganglia stroke Onset July 2022 Subjective Information The patient reports no pain. The patient reports no numbness or tingling but is unable to identify all items from bin with vision occluded during re- evaluation. Reported Pain Level Pain Score 0: Self Report Pain Score 0: Self Report Pain Score 0: Self Report Pain Score 0: Self Report Pain Score 0: Self Report Pain Score 0: Self Report Pain Score 0: Self Report Pain Score 0: Self Report Pain Score 0: Self Report Pain Score 0: Self Report Pain Score 0: Self Report Pain Score 0: Self Report Pain Score 0: Self Report Pain Score 0: Self Report Pain Score 0: Self Report Pain Score 0: Self Report Pain Score 0: Self Report Pain Score 0: Self Report Pain Score 0: Self Report Pain Score 0: Self Report Pain Score 0: Self Report Pain Score 0: Self Report Additional Pain Score Comments Pt. has no c/o pain. 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 The patient continues to require skilled OT to address these deficits and will continue to engage in therapeutic exercise and activities following hospitalization to improve function and increase independence. Plan of Care Interventions Therapeutic Exercise,Manual Therapy,Neuro Re- education,Therapeutic Activities,Hot Pack/Cold Pack,Electrical Stimulation,Self-Care/Home Management OT Services Indicated Yes Treatment Frequency and 2x/week for 12 visits. Duration
== END 2022-12-05 20:00 | disposition still patient (30) ==
LOC: CHSPT 13:00
DX: I63.81 Other cerebral infarction due to occlusion or stenosis of small artery (principal); R53.1 Weakness
CPT/HCPCS: 97110; 97112; 97161; 97165; 97168; 97530; 97750

== ENCOUNTER 2022-10-25 11:50 | Emergency (ER) | payer OTHER, SELFPAY ==
--- NOTE | ~2022-10-25 | CT_ITS ---
CT head without contrast Indication: Slurred speech, weakness Technique: Serial scans were obtained through the brain without the administration of contrast. Dose reduction technique was used on this scan by utilizing automated exposure control and iterative recon struction technique. The dose-length product (DLP) was 605.33 mGy-cm. Findings: There is no evidence of intracranial hemorrhage, mass lesion, or acute infarct. The ventri cles and subarachnoid spaces are unremarkable. There are focal low attenuation regions in the bilater al basal ganglia, likely representing changes from chronic microvascular ischemic disease. There is n o evidence of edema, mass effect or midline shift. The visualized paranasal sinuses and mastoid air cells are clear. Impression: Focal low attenuation areas in the bilateral basal ganglia, likely chronic microvascular ischemic ervin nge. If there is concern for focal acute ischemia, then MR is recommended for further evaluation. Reviewed, dictated and finalized at location M. Impression: Focal low attenuation areas in the bilateral basal ganglia, likely chronic micr ovascular ischemic change. If there is concern for focal acute ischemia, then M R is recommended for further evaluation.
--- NOTE | ~2022-10-25 | CT_ITS ---
EXAMINATION: CT abdomen pelvis w con DATE: 10/25/2022 14:20 INDICATION: Elevated liver function tests. History of carcinoma. TECHNIQUE: Computed tomography (CT) of the abdomen and pelvis was performed without intravenous contr ast. The dose-length product was 202.24 mGy-cm. Automated exposure control and iterative reconstructi on technique were employed. COMPARISON: CT dated 12/20/2019. FINDINGS: Lung bases are unremarkable. There is dependent atelectasis. Heart size is normal. There is atherosclerosis of the aorta without aneurysm. No lymphadenopathy. No significant pleural or pericar dial effusion. The liver, spleen, pancreas, adrenal glands and kidneys are unremarkable. Gallbladder is present. Nonobstructive bowel pattern. There is mild thickening of the gastric wall. Cannot exclud e gastritis. There is grade 1 spondylolisthesis at L4-5 secondary to facet hypertrophy. No focal lyti c or blastic lesions. IMPRESSION: 1. Mild thickening of the gastric wall, suspicious for gastritis. Reviewed, dictated and finalized at location []
--- NOTE | ~2022-10-25 | US_ITS ---
EXAMINATION: US abdomen limited DATE: 10/25/2022 15:25 INDICATION: elevated LFT's TECHNIQUE: Multiple grayscale and Doppler ultrasound images of limited portions of the abdomen were o btained. COMPARISON: CT abdomen and pelvis, same date. FINDINGS: The visualized portions of the pancreas are normal. The liver is normal with normal echogen icity and echotexture. No surface nodularity. Normal hepatopetal flow in the main portal vein. The ga llbladder is contracted. The common bile duct measures 2 mm. There was no sonographic Martinez sign. IMPRESSION: Contracted gallbladder which significantly limits evaluation for gallbladder pathology. Otherwise nor mal limited abdominal ultrasound findings. Reviewed, dictated and finalized at location K. IMPRESSION: Contracted gallbladder which significantly limits evaluation for gallbladder pa thology. Otherwise normal limited abdominal ultrasound findings.
--- NOTE | 2022-10-25 11:58 | ED.WEAKNESS ---
HPI - Weakness General Chief complaint: Weakness Stated complaint: slurred speech Time Seen by Provider: 10/25/22 11:55 History of Present Illness HPI Narrative: Pt presents with generalized weakness and slurred speech for 4 days. Pt has hx of cva with right sided deficit ans slurred speech. deficit has improved and sometimes she gets slurred speech when tired but it has been more persistent last few days even when she is not tired. Pt also feels generally weak. Pt denies LORENZO. Daughter called neurologist at [place] who recommended CT and work up for weakness. Related Data Home Medications Medication Instructions Recorded Confirmed escitalopram oxalate 10 mg tablet 10 mg PO DAILY 03/07/22 10/25/22 prochlorperazine maleate 10 mg 10 mg PO TID PRN Nausea 03/07/22 10/25/22 tablet alprazolam 0.5 mg tablet 0.5 mg PO BID 07/26/22 10/25/22 fluticasone propionate 50 50 mcg intranasal DAILY PRN 07/26/22 10/25/22 mcg/actuation nasal Congestion spray,suspension prednisone 5 mg tablet 5 mg PO DAILY 07/26/22 10/25/22 Allergies Allergy/AdvReac Type Severity Reaction Status Date / Time No Known Allergies Allergy Verified 10/25/22 12:29 Review of Systems Review of Systems: All systems reviewed & are unremarkable except as noted in HPI and below PMFSH Past Medical History Medical History Brain cancer Chronic back pain Lung cancer Tobacco abuse Family History Family History Other Family history normal Social History Social History Smoking packs per day: 1 Smoking cigarettes per day: 20.0 Years smoked: 40 Smoking pack-years: 40.00 Smoking status: Former smoker Smoking end date: 12/20/19 Alcohol intake: never Substance use: never Spiritual care concerns: No Exam Const: General: healthy appearing Nutritional Appearance: well nourished Orientation/consciousness: patient oriented x3 Limitations: no limitations HENMT: Head: normal to inspection Mouth: Yes Normal oral and palatal mucosa present Eyes: Conjunctivae: conjunctivae normal Pupils: Equal, round and reactive pupils present EOM: EOMs intact bilaterally Resp: Effort & Inspection: normal respiratory effort Auscultation: clear to auscultation bilaterally Cardio: Rate: regular rate Rhythm: regular rhythm GI: GI Palp: Yes Soft to palpation Skin: General skin exam: normal color Neuro: General: patient oriented x3, moves all extremities, no meningeal signs, no focal motor deficits and CN's II-XI intact bilaterally Cranial nerves: Yes Nystagmus not present Speech: Abnormal speech present slurred (slight) Extrem: General: normal to inspection and no clubbing, cyanosis or edema Psych: Mental Status: mental status grossly normal Affect: normal affect Attitude: cooperative Course Vital Signs Vital signs: Vital Signs Temperature 98.4 F 10/25/22 12:13 Pulse Rate 98 10/25/22 12:13 Respiratory Rate 18 10/25/22 12:13 Blood Pressure 109/78 10/25/22 12:13 Pulse Oximetry 96 10/25/22 12:13 Oxygen Delivery Room Air 10/25/22 12:13 Temperature 98.7 F 10/25/22 21:33 Pulse Rate 79 10/26/22 06:03 Respiratory Rate 14 10/26/22 06:03 Blood Pressure 104/70 10/26/22 06:03 Pulse Oximetry 97 10/26/22 06:03 Oxygen Delivery Room Air 10/26/22 06:03 MDM - Weakness MDM Narrative Medical decision making narrative: 57 y/o female with hx of cva with right sided deficit and slurred speech as well as lung CA with mets to brain presents with 4 days of generalized weakness and more persistent slurred speech. Neurologist at [place] asked for pt to be evaluated with CT brain to rule out bleed and work up for weakness. CT brain neg for bleed, LFT's very elevated on CMP, CT abd/pelvis ordered which did not show any mets to liver or abnormal
[2022-10-25 12:13] VITALS: BP 109/78; PULSE 98; RESP 18; TEMP 36.9; O2SAT 96
[2022-10-25 12:29] LABS: Basophils Percent Auto 1.4 % (0.0-1.0); Eosinophils Absolute Auto 0.11 K/mm3 (0.02-0.50); Eosinophils Percent Auto 1.5 % (1.0-6.0); Hematocrit 33.2 % (35.0-49.0); Hemoglobin 11.4 g/dL (12.0-15.0); Immature Granulocyte Absolute 0.03 K/mm3 (0.00-0.00); Immature Granulocyte Percent A 0.4 % (0.0-0.0); Lymphocytes Absolute Auto 0.74 K/mm3 (1.10-4.50); Lymphocytes Percent Auto 10.4 % (18.0-42.0); Mean Corpuscular HGB Conc 34.3 g/dL (32.0-36.0); Mean Corpuscular Hemoglobin 28.4 pg (27.0-31.0); Mean Corpuscular Volume 82.8 fL (78.0-102.0); Mean Platelet Volume 12.5 fl (9.2-11.8); Monocytes Absolute Auto 0.95 K/mm3 (0.10-0.90); Monocytes Percent Auto 13.3 % (2.0-11.0); Neutrophils Absolute Auto 5.2 K/mm3 (1.7-7.2); Platelet Count Result 170 K/mm3 (150-420); Red Blood Count 4.01 M/mm3 (4.20-5.40); White Blood Count 7.1 K/mm3 (4.8-10.8)
[2022-10-25 12:30] VITALS: BP 116/72; PULSE 83; RESP 16; TEMP 36.5; O2SAT 98
[2022-10-25 12:43] LABS: Partial Thromboplastin Time 36.5 SEC (23.90-30.70); Prothrombin Time 11.3 Seconds (9.50-12.10)
[2022-10-25 12:55] LABS: Albumin Level 2.7 g/dL (3.4-5.0); Anion Gap 11 mmol/L (8-16); Bilirubin,Total 9.3 mg/dL (0.00-1.00); Blood Urea Nitrogen 18 mg/dL (7-18); Calcium 8.2 mg/dL (8.5-10.1); Carbon Dioxide 25 mmol/L (21-32); Chloride 98 mmol/L (98-108); Estimated CRCL calculation 36 ml/min; Estimated Glomerular Filt Rate 43; Glucose 107 mg/dL (70-99); Osmolality Calculated 279 mOsm/kg (285-295); Sodium 134 mmol/L (136-145); Total Protein 6.3 g/dL (6.4-8.2)
[2022-10-25 12:58] LABS: Alkaline Phosphatase > 1000 U/L (46-116)
[2022-10-25 13:12] LABS: Alanine Aminotransferase > 1000 U/L (14-59); Aspartate Amino Transferase > 796 U/L (15-37)
[2022-10-25 14:01] LABS: Appearance Urine Slightly Cloudy (Clear); Bilirubin Urine 3+ (Negative); Blood Urine 3+ (Negative); Glucose Urine UA Trace (Negative); Ketones Urine Trace (Negative); Leukocyte Esterase Ur Trace LEU/UL (Negative); Nitrate Urine Negative (Negative); Protein Urine 3+ (Negative); Specific Grav Ur 1.025 (1.010-1.020); Urobilinogen Urine >=8.0 mg/dL (0.2-1.0); pH Urine 6.5 (5.0-8.0)
[2022-10-25 14:06] LABS: Add Urine Microscopic? YES; Bacteria Urine 2+ /hpf; Color Urine Dark Orange (Yellow); Squamous Epithelial Cell Urine Few /hpf (Few); WBC Urine 0-3 /hpf (0-3)
[2022-10-25 14:30] VITALS: BP 115/81; PULSE 69; RESP 16; TEMP 36.4; O2SAT 97
[2022-10-25 16:43] VITALS: BP 117/71; PULSE 71; RESP 14; TEMP 36.3; O2SAT 97
[2022-10-25 18:40] VITALS: BP 121/60; PULSE 77; RESP 18; TEMP 36.3; O2SAT 97
--- NOTE | 2022-10-25 19:38 | PC.NURSE ---
Pt waiting on bed assignment at [facility], pt is resting and has no requests at this time.
[2022-10-25 21:33] VITALS: BP 122/79; PULSE 77; RESP 13; TEMP 37.1; O2SAT 96
[2022-10-26] VITALS (8 sets, daily range): BP systolic 104–131; BP diastolic 63–74; PULSE 62–82; RESP 14–18; TEMP 36.4–36.8; O2SAT 94–98
--- NOTE | 2022-10-26 01:02 | PC.NURSE ---
Pt up to bathroom by self, no current requests at this time. pt back in bed resting.
--- NOTE | 2022-10-26 03:52 | PC.NURSE ---
Pt continues to rest comfortably.
--- NOTE | 2022-10-26 06:10 | PC.NURSE ---
pt up to bathroom.
--- NOTE | 2022-10-26 06:10 | PC.NURSE ---
still waiting on bed assignment at [facility].
--- NOTE | 2022-10-26 19:20 | PC.NURSE ---
Assumed care of pt from TEMITOPE Nassar. Per Maday, pt appears more jaundiced today compared to her assessment yesterday especially to sclera. Pt has been taking home meds as prescribed. 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 Pt was brought to ED for worsening of speech per family report. Pt currently A&Ox4. Pt reports is feeling tired and is tired of being in ED. Pt is calm and cooperative and answers all questions appropriately at this time. PT denies the presence of pain. Pt does have some dysarthria noted but communication is not hindered. Pt voices no needs at this time. Pt does have jaundice hue noted to skin and to sclera. Pt calling to bring home meds for her this evening. Call light in reach. Bed in lowest position and locked. Side rails up x 1. Non-slip hospital socks provided. Remain awaiting bed from [facility] per off-going report will likely not happen tonight.
--- NOTE | 2022-10-26 19:57 | PC.NURSE ---
Pt took her home medication Xanax 0.5 mg and ASA 325 mg as has been permitted while in dept.
[2022-10-26 20:04] LABS: Albumin Level 2.5 g/dL (3.4-5.0); Anion Gap 8 mmol/L (8-16); Bilirubin,Total 9.2 mg/dL (0.00-1.00); Blood Urea Nitrogen 15 mg/dL (7-18); Calcium 8.1 mg/dL (8.5-10.1); Carbon Dioxide 26 mmol/L (21-32); Chloride 100 mmol/L (98-108); Estimated CRCL calculation 42 ml/min; Estimated Glomerular Filt Rate 52; Glucose 109 mg/dL (70-99); Osmolality Calculated 279 mOsm/kg (285-295); Potassium 3.4 mmol/L (3.5-5.1); Sodium 134 mmol/L (136-145)
[2022-10-26 20:05] LABS: Alanine Aminotransferase > 1000 U/L (14-59); Aspartate Amino Transferase > 796 U/L (15-37)
[2022-10-26 20:06] LABS: Alkaline Phosphatase > 1000 U/L (46-116)
[2022-10-26 20:14] LABS: Ammonia 52 umol/L (11-32)
[2022-10-26] MEDS: POTASSIUM BICARBONATE 25 MEQ TABEF 50 MEQ PO (20:14)
--- NOTE | 2022-10-26 21:15 | PC.NURSE ---
Pt had emesis after completing potassium drink. ERP aware and states will hold for now on administering any more potassium PO.
--- NOTE | 2022-10-26 23:31 | PC.NURSE ---
Pt awakens to voice for vital signs. Pt voices no new needs or complaints is oriented x 4 upon awakening. Vitals obtained. Update provided to Yamilex, at [facility] Access Line at this time. Per Yamilex no ETA on bed.
[2022-10-27 03:18] VITALS: BP 112/69; PULSE 68; RESP 12; TEMP 36.4; O2SAT 96
--- NOTE | 2022-10-27 03:19 | PC.NURSE ---
Pt resting with eyes closed and rhythmic breathing. PT awakens to voiced and is oriented x 4. Vitals obtained. Fresh water provided. IV flushed with no s/s infiltration.
[2022-10-27 06:12] LABS: Albumin Level 2.3 g/dL (3.4-5.0); Anion Gap 6 mmol/L (8-16); Blood Urea Nitrogen 17 mg/dL (7-18); Calcium 8.2 mg/dL (8.5-10.1); Carbon Dioxide 28 mmol/L (21-32); Chloride 102 mmol/L (98-108); Estimated CRCL calculation 46 ml/min; Estimated Glomerular Filt Rate 60; Glucose 80 mg/dL (70-99); Osmolality Calculated 282 mOsm/kg (285-295); Potassium 3.1 mmol/L (3.5-5.1); Sodium 136 mmol/L (136-145); Total Protein 5.7 g/dL (6.4-8.2)
[2022-10-27 06:36] LABS: Alanine Aminotransferase > 1000 U/L (14-59); Alkaline Phosphatase > 1000 U/L (46-116); Aspartate Amino Transferase > 796 U/L (15-37)
--- NOTE | 2022-10-27 07:02 | PC.NURSE ---
Report to TEMITOPE Arriaga.
[2022-10-27 07:54] VITALS: BP 101/68; PULSE 81; RESP 20; O2SAT 96
--- NOTE | 2022-10-27 08:31 | PC.NURSE ---
PT ATE BREAKFAST TRAY, IS TALKING ON CELL PHONE WITHOUT DISTRESS. NO CHANGE IN STATUS. PT APPEARS JAUNDICE TODAY. WILL CONTINUE TO MONITOR. VSS.
--- NOTE | 2022-10-27 10:22 | PC.NURSE ---
PT IS TALKING ON CELL PHONE WITHOUT DISTRESS. NO CHANGE IN PT STATUS. WILL CONTINUE TO MONITOR.
--- NOTE | 2022-10-27 12:03 | PC.NURSE ---
LUNCH TRAY PROVIDED TO PT. UPDATED STATUS WITH [facility], NO BEDS AVAILABLE AT THIS TIME. THEY ARE UNCERTAIN WHEN SHE WILL GET A BED. PT UPDATED. NO CHANGE IN PT STATUS. WILL CONTINUE TO MONITOR.
[2022-10-27 13:13] VITALS: BP 102/72; PULSE 79; RESP 18; O2SAT 98
--- NOTE | 2022-10-27 13:14 | PC.NURSE ---
PT ATE FRUIT OFF OF LUNCH TRAY, REPORTS SHE DOES NOT LIKE FISH. OFFERED A SANDWICH, COTTAGE CHEESE, APPLESAUCE, OR JELLO. PT ONLY REQUESTED JELLO AT THIS TIME. IT WAS PROVIDED. PT IS AWARE OF BED STATUS AND REPORTS HE IS ATTEMPTING TO CONTACT ONCOLOGIST AT THIS TIME. I CAN SLEEP IN MY OWN BED. WILL CONTINUE TO AWAIT PLACEMENT AT THIS TIME. NAD NOTED. PT DENIES ANY NEEDS OR COMPLAINTS. VSS PER MONITOR.
--- NOTE | 2022-10-27 15:00 | PC.NURSE ---
PT IS SLEEPING IN EXAM ROOM AT THIS TIME. NAD NOTED. NO CHANGE IN PT STATUS. PT CONTINUES TO AWAIT ROOM ASSIGNMENT WITH [facility]. WILL CONTINUE TO MONITOR.
--- NOTE | 2022-10-27 15:06 | WPDPN ---
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 Patient remains jaundiced and has elevated liver enzymes. She is waiting transfer to her oncologist at [facility]. Family has decided that they want to take her home AMA. They want to take her to [facility] ER and see if they can get admitted through there without waiting. And she has been stabilized and awaiting specialty input from her oncologist regarding her acute hepatitis. Time Spent With Patient Time with patient: less than 15 minutes Subjective Date/time seen: 10/27/22 15:06 Interval history: I received complete detailed report from Dr. Phillips at 7 a.m.. Patient here in the ER waiting bed placement at [facility]. She has no other complaints at this time. She remained stable. She is eating without difficulty. Review of Systems Review of Systems: All systems reviewed & are unremarkable except as noted in HPI and below Exam Const: General: comfortable and no acute distress HENMT: Mouth: Yes moist mucous membranes Eyes: General: appearance normal, both eyes and all related structures Sclera: scleral abnormality bilateral scleral injection and other ( Icteric) Pupils: Equal, round and reactive pupils present EOM: EOMs intact bilaterally Neck: Neck: supple Resp: Effort & Inspection: normal respiratory effort Auscultation: clear to auscultation bilaterally Cardio: Rate: regular rate Rhythm: regular rhythm GI: GI Palp: Yes Soft to palpation and No Firmness to palpation present (GI) Auscultation: normal bowel sounds Skin: General skin exam: elasticity normal, turgor normal and jaundice Neuro: General: gait normal Motor exam (neuro): 5/5 motor strength present throughout and Normal motor muscle tone present throughout Sensory Exam: normal sensation Extrem: General: normal to inspection Psych: Mental Status: mental status grossly normal Affect: normal affect Objective Data Vital Signs Vital Signs: Vital Signs - 24 hr 10/26/22 17:47 10/26/22 19:39 10/26/22 23:29 Temperature 36.7 C 36.8 C Pulse Rate 75 75 62 Respiratory Rate 18 16 Blood Pressure 111/67 118/72 116/63 Pulse Oximetry 94 98 95 Oxygen Delivery Room Air Room Air Room Air 10/27/22 03:18 10/27/22 07:54 10/27/22 13:13 Temperature 36.4 C L Pulse Rate 68 81 79 Respiratory Rate 12 20 18 Blood Pressure 112/69 101/68 102/72 Pulse Oximetry 96 96 98 Oxygen Delivery Room Air Room Air Room Air Meds/Results Radiology Results: ITS Impressions Head CT 10/25/22 12:52 Impression: Focal low attenuation areas in the bilateral basal ganglia, likely chronic microvascular ischemic change. If there is concern for focal acute ischemia, then MR is recommended for further evaluation. Abdomen/Pelvis CT 10/25/22 14:28 IMPRESSION: 1. Mild thickening of the gastric wall, suspicious for gastritis. ADDENDUM: 10/25/22 1449 Correction: CT performed without and with 100 cc Omnipaque 350 Abdomen Ultrasound 10/25/22 15:27 IMPRESSION: Contracted gallbladder which significantly limits evaluation for gallbladder pathology. Otherwise normal limited abdominal ultrasound findings. Labs Labs: Laboratory Results - last 24 hr 10/26/22 10/27/22 19:37 05:46 Sodium 134 L 136 Potassium 3.4 L 3.1 L Chloride 100 102 Carbon Dioxide 26 28 Anion Gap 8 6 L BUN 15 17 Creatinine 1.07 H 0.95 Estim Creat Clear Calc 42 46 Estimated GFR 52 L 60 Glucose 109 H 80 Calculated Osmolality 279 L 282 L Calcium 8.1 L 8.2 L Total Bilirubin 9.2 H 9.0 H AST > 796 H > 796 H ALT > 1000 H > 1000 H Alkaline Phosphatase > 1000 H > 1000 H Ammonia 52 H Total Protein 6.0 L 5.7 L Albumin 2.5 L 2.3 L
[2022-10-27 15:10] VITALS: BP 116/77; PULSE 84; RESP 20; TEMP 36.9; O2SAT 98
--- NOTE | 2022-10-27 15:14 | PC.NURSE ---
ARRIVES AND PT WITH HAVE DECIDED TO SIGN OUT AMA. ERP IS NOTIFIED AND AWARE. PT AND ARE AWARE OF THE SIGNIFICANCE OF HER NEED FOR HOSPITALIZATION. PT AND REPORT THEY ARE GOING TO GO STRAIGHT TO [place], IF WE ARE THERE THEY WILL GET US A BED SOONER THAN IF WE STAY HERE AND CONTINUE TO WAIT, AT LEAST THERE WE CAN SEE SOME OF THE DOCTORS SHE NEEDS. THIS RN IS SENDING LABS AND CT DISC WITH PT REQUESTED BY PT AND FAMILY.
--- NOTE | 2022-10-27 15:27 | PC.NURSE ---
BOTH AND PT VERBALIZED UNDERSTANDING OF AMA AND BOTH SIGN AMA FORM.
[2022-10-31 13:27] LABS: Hepatitis A Antibody IgM Nonreactive; Hepatitis B Core Antibody Nonreactive (Nonreactive); Hepatitis B Surface Antigen Nonreactive (Nonreactive); Hepatitis C Virus Antibody Nonreactive
--- NOTE | 2022-10-31 14:41 | PC.NURSE ---
FINAL BLOOD CULTURE RESULTS X2: NO GROWTH AFTER 5 DAYS
== END 2022-10-27 15:30 | disposition short-term general hospital (02) ==
PROVIDERS: Emergency Medicine; Emergency Provider Emergency Medicine; PCP Family Medicine
DX: R74.8 Abnormal levels of other serum enzymes (principal); R53.1 Weakness; C34.90 Malignant neoplasm of unspecified part of unspecified bronchus or lung; C79.31 Secondary malignant neoplasm of brain; I69.328 Other speech and language deficits following cerebral infarction; Z87.891 Personal history of nicotine dependence
CPT/HCPCS: 36415; 70450; 74177; 76705; 80053; 80074; 81001; 82140; 85025; 85610; 85730; 87040; 99285; A9270; Q9967

== ENCOUNTER 2022-12-07 18:50 | Outpatient (RCR) | payer OTHER, SELFPAY ==
--- NOTE | 2023-01-02 16:50 | OTOPREEVAL ---
Assessment and note entered by Mikala Rueda, OT Evaluation Information Assessment Status Re-evaluation Diagnosis Basal ganglion stroke Subjective Information The patient reports that the use of her UE have improved but she continues to have trouble with her hands. The patient stated she went to the neurologist yesterday and they were concerned with something in her arm that was affecting her progress. Reported Pain Level Pain Score 0: Self Report Assessment OT Clinical Summary The patient demonstrates significant progress in fine motor coordination and UE strength which has improved her ability to perform daily tasks at home such as washing her countertops. The patient continues to demonstrate deficits with endurance for UE and during aerobic activities affecting her ability to walk to doctor's appointments, get groceries, and perform housework. 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 The patient demonstrates good potential through improvement in most aspects of POC but continues to demonstrate deficits at this time. Plan of Care Interventions Therapeutic Exercise,Manual Therapy,Neuro Re- education,Therapeutic Activities,Hot Pack/Cold Pack,Electrical Stimulation,Sensory Integrative Techn,Self-Care/Home Management OT Services Indicated Yes Treatment Frequency and 2x/week for 10 visits. Duration These treatments will address the objective and functional deficits as defined above. The patient will be advanced safely and appropriately in order for the patient to progress towards his/her prior level of function. Additional exercises will be introduced and as well as a comprehensive home exercise program upon discharge, if needed, ?to ensure carryover of functional gains achieved in the clinic. This treatment plan has been reviewed and agreement upon by the patient.
== END 2023-01-02 10:41 | disposition still patient (30) ==
LOC: CHSOT 18:50
DX: I63.81 Other cerebral infarction due to occlusion or stenosis of small artery (principal); R53.1 Weakness
CPT/HCPCS: 97110; 97168; 97530

== ENCOUNTER 2023-01-18 13:49 | Outpatient (RCR) | payer OTHER, SELFPAY ==
--- NOTE | 2023-01-18 15:15 | PTOPEVAL1 ---
Assessment and note entered by JT File, PT Evaluation Information Assessment Status Evaluation Diagnosis R sided weakness, balance impairments Onset 01/01/23 Subjective Information Patient reports she had a stroke in July of 2022, following this she had a liver problem that has now improved. She notes she received PT following the stroke and that it greatly helped, since stopping she has noticed increased stiffness in her legs and hands. She notes difficulty walking across uneven surfaces such as grass in her yard. She used a walker following the stroke, but has not been using any assistive device recently. She states she has had no recent falls, but occasionaly trips and catches herself. Patient reports that she notices weakness in the R hand and shoulder, however has plans to be evaluated by OT tomorrow. She notes pain in the R shoulder with activities and while trying to sleep, which limits her sleep quality. Reported Pain Level Pain Score 5: Self Report Pain Score 0: Self Report Additional Pain Score Comments Pt. has no c/o pain. Assessment PT Clinical Summary Mrs. Huff is a 57 y/o female who presents to skilled PT with R sided weakness and balance impairments secondary to a stroke. She presents with limitations in R LE and UE strength, as well as difficulty with higher level balance acitivities. Patient scores a 45/56 with the Espinoza balance assessment, increasing her risk of falling in the home and community with different activities. Patient reports difficulty walking in her yard due to the uneven surface. Patient would benefit from skilled PT to address high level balance and general strengthening to increase her safety with daily activities. Plan of Care Interventions Gait Training,Neuro Re-education,Patient/Caregiver Educati,Therapeutic Activities,Therapeutic Exercise PT Services Indicated Yes Treatment Frequency and 2x/week for 6 visits Duration These treatments will address the objective and functional deficits as defined above. The patient will be advanced safely and appropriately in order for the patient to progress towards his/her prior level of function. Additional exercises will be introduced and as well as a comprehensive home exercise program upon discharge, if needed, ?to ensure carryover of functional gains achieved in the clinic. This treatment plan has been reviewed and agreement upon by the patient.
--- NOTE | 2023-01-18 15:15 | OPREHPOC ---
Outpatient Therapy Plan of Care This is a Multidisciplinary Plan of Care that may contain components documented by all disciplines (PT, OT, and ST.) PT Problem 1 PT Problem #1 Knowledge Deficit PT Goal 1 Goal 1. Patient to be independent with HEP to improve progress made in PT. Target Visit 3 PT Problem 2 PT Problem #2 Impaired Balance PT Goal 1 Goal 1. Patient to improve score of Espinoza Balance assessment to 50 points or greater to reduce fall risk. 2. Patient to hold single limb balance on R foot for 10 seconds or more to improve balance while ascending stairs. Target Visit 6 PT Problem 3 PT Problem #3 Impaired Strength PT Goal 1 Goal 1. Patient to achieve 5/5 R LE strength to improve ability to squat to ground to pick remover objects for cleaning her home. Target Visit 6 PT Problem 4 PT Problem #4 Impaired Endurance PT Goal 1 Goal 1. Patient to ambulate 950 feet during 6 minute walk test with no breaks to improve endurance for walking in the grocery store. 2. patient to ambulate over uneven surface with no losses of balance to allow for her to cross her yard. Target Visit 6 PT Problem 5 PT Problem #5 Impaired Functional Mobil PT Goal 1 Goal 1. Patient to ascend/descend one flight of stairs to improve mobility in the community. 2. Patient to report ability to walk for 30 minutes to allow for her to walk outside around her home. Target Visit 6 OT Problem 1 OT Problem #1 Knowledge Deficit OT Goal 1 Goal The patient will demonstrate 100% knowledge of UE HEP needed to improve and maintain function of R UE. Target Visit 10 Progress Partially Met OT Problem 2 OT Problem #2 Impaired Coordination OT Goal 1 Goal The patient will demonstrate improved fine motor coordination by performing 9-hole peg test in <28 seconds in order to perform housekeeping tasks. Target Visit 10
--- NOTE | 2023-01-22 08:51 | BUOTOPEVAL ---
Assessment and note entered by Mikala Rueda, OT Evaluation Information Assessment Status Progress Diagnosis Basal ganglion stroke Onset July 2022 Subjective Information The patient stated that she continues to have difficulty with ADLs including cooking, doing her hair, and has issues with being sleepy all the time. She stated she will sleep for 10 hours and not feel rested. She reports that her muscle relaxer medication has been changed and hopes this will help her energy levels. Reported Pain Level Pain Score 0: Self Report Pain Score 0: Self Report Pain Score 5: Self Report Pain Score 0: Self Report Additional Pain Score Comments Pt. has no c/o pain. 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 The patient demonstrates progress toward goals and has good potential for continued improvement. Plan of Care Interventions Therapeutic Exercise,Sensory Integrative Techn, Manual Therapy,Neuro Re-education,Therapeutic Activities,Hot Pack/Cold Pack,Electrical Stimulation,Self-Care/Home Management OT Services Indicated Yes Treatment Frequency and 2x/week for 10 visits. Duration These treatments will address the objective and functional deficits as defined above. The patient will be advanced safely and appropriately in order for the patient to progress towards his/her prior level of function. Additional exercises will be introduced and as well as a comprehensive home exercise program upon discharge, if needed, ?to ensure carryover of functional gains achieved in the clinic. This treatment plan has been reviewed and agreement upon by the patient.
--- NOTE | 2023-02-09 11:03 | OPREHPOC ---
Outpatient Therapy Plan of Care This is a Multidisciplinary Plan of Care that may contain components documented by all disciplines (PT, OT, and ST.) PT Problem 1 PT Problem #1 Knowledge Deficit PT Goal 1 Goal 1. Patient to be independent with HEP to improve progress made in PT. Target Visit 3 Progress Met PT Problem 2 PT Problem #2 Impaired Balance PT Goal 1 Goal 1. Patient to improve score of Espinoza Balance assessment to 50 points or greater to reduce fall risk. 2. Patient to hold single limb balance on R foot for 10 seconds or more to improve balance while ascending stairs. Target Visit 6 Progress Met PT Problem 3 PT Problem #3 Impaired Strength PT Goal 1 Goal 1. Patient to achieve 5/5 R LE strength to improve ability to squat to ground to bulk picker objects for cleaning her home. Target Visit 6 Progress Partially Met PT Problem 4 PT Problem #4 Impaired Endurance PT Goal 1 Goal 1. Patient to ambulate 950 feet during 6 minute walk test with no breaks to improve endurance for walking in the grocery store. 2. patient to ambulate over uneven surface with no losses of balance to allow for her to cross her yard. Target Visit 6 Progress Met PT Problem 5 PT Problem #5 Impaired Functional Mobil PT Goal 1 Goal 1. Patient to ascend/descend one flight of stairs to improve mobility in the community. 2. Patient to report ability to walk for 30 minutes to allow for her to walk outside around her home. Target Visit 6 Progress Met OT Problem 1 OT Problem #1 Knowledge Deficit OT Goal 1 Goal The patient will demonstrate 100% knowledge of UE HEP needed to improve and maintain function of R UE. Target Visit 10 Progress Partially Met [place]
--- NOTE | 2023-02-09 11:03 | PTOPDC ---
Assessment and note entered by Wanda Bee DPT Evaluation Information Assessment Status Re-evaluation Diagnosis R sided weakness, balance impairments Onset 01/01/23 Subjective Information Rufus reports that she has improvement with walking across her yard. She has not had any falls . She reports that her legs are still stiff in the mornings Reported Pain Level Pain Score 0: Self Report Pain Score 0: Self Report Assessment PT Clinical Summary Mrs. Huff was seen for 6 visits of skilled PT with all goals met. She demonstrates improved balance and strength as well as reported improvement with walking uneven surfaces at home and in the community. Patient reports independence with HEP and is appropriate for DC at this time. Plan of Care PT Services Indicated No
--- NOTE | 2023-03-12 08:29 | BUOTOPDC ---
Assessment and note entered by Mikala Rueda, OT Evaluation Information Assessment Status Discharge Diagnosis Basal ganglion stroke Onset July 2022 Subjective Information The patient stated she believes she has gotten much stronger and doesn't drop things as much. She also stated she is able to do her own hair which she has not been able to do in a long time. Reported Pain Level Pain Score 0: Self Report Pain Score 0: Self Report Pain Score 0: Self Report Pain Score 0: Self Report Pain Score 0: Self Report Pain Score Mild Pain: Jaffe Olivera Pain Score 0: Self Report Pain Score 0: Self Report Pain Score 0: Self Report Pain Score 3: Self Report Pain Score 0: Self Report Pain Score 5: Self Report Pain Score 0: Self Report Pain Score 0: Self Report Pain Score 0: Self Report Pain Score 5: Self Report Pain Score 0: Self Report Additional Pain Score Comments Pt. has no c/o pain. 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 The patient requires less assistance from her and does not get winded when walking to doctor's appointments. The patient has met her goals at this time and has been discharged with UE HEP to complete in order to maintain progress. The patient is discharged from skilled OT.
== END 2023-03-09 16:37 | disposition home or self-care (01) ==
LOC: CHSPT 13:49
DX: I63.81 Other cerebral infarction due to occlusion or stenosis of small artery (principal); R53.1 Weakness
CPT/HCPCS: 97110; 97112; 97161; 97530; 97750

== ENCOUNTER 2023-08-16 15:51 | Outpatient (RCR) | payer OTHER, SELFPAY ==
--- NOTE | 2023-08-16 16:40 | OPREHPOC ---
Outpatient Therapy Plan of Care This is a Multidisciplinary Plan of Care that may contain components documented by all disciplines (PT, OT, and ST.) PT Problem 1 PT Problem #1 Knowledge Deficit PT Goal 1 Goal Patient to report independence with HEP Target Visit 4 PT Problem 2 PT Problem #2 Impaired Functional Mobil PT Goal 1 Goal 1. Patient to demonstrate ability to get up from ground with independence for fall recovery 2. Patient to deny fall since start of PT 3. Patient to score >24 on Tinetti balance scale to decrease fall risk within the home 4. Patient to ambulate 1200' during 6 min walk test to improve community ambulation Target Visit 8
--- NOTE | 2023-08-16 16:40 | PTOPEVAL1 ---
Assessment and note entered by Wanda To DPT Evaluation Information Assessment Status Evaluation Diagnosis impaired balance Onset 08/09/23 Subjective Information Patient reports she has had about 5 falls within the last month. She reports most of them are result of tripping. She also feels like she loses her balance easily. She reports she has returned to work 3 days a week for 4 hours. She denies falls at work. 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 She reports she is having difficulty getting up out of a chair, navigating stairs and increased falls. Patient had a stroke in July of 2022. She reports at this time she is cancer free. She has a history of brain and lung cancer. Reported Pain Level Pain Score 0: Self Report Assessment PT Clinical Summary Mrs. Huff is a 58 year old female who presents to PT with impaired balance. Patient reports 5 falls within the last month with difficulty getting up out of a chair ambulating prolonged distances. She demonstrates impaired balance with objective balance testing. She would benefit from skilled PT to address impairments and decrease fall risk within the home. Plan of Care Interventions Gait Training,Hot Pack/Cold Pack,Neuro Re- education,Patient/Caregiver Educati,Therapeutic Activities,Therapeutic Exercise PT Services Indicated Yes Treatment Frequency and 2x weekly for 8 visits Duration These treatments will address the objective and functional deficits as defined above. The patient will be advanced safely and appropriately in order for the patient to progress towards his/her prior level of function. Additional exercises will be introduced and as well as a comprehensive home exercise program upon discharge, if needed, ?to ensure carryover of functional gains achieved in the clinic. This treatment plan has been reviewed and agreement upon by the patient.
--- NOTE | 2023-09-13 13:47 | OPREHPOC ---
Outpatient Therapy Plan of Care This is a Multidisciplinary Plan of Care that may contain components documented by all disciplines (PT, OT, and ST.) PT Problem 1 PT Problem #1 Knowledge Deficit PT Goal 1 Goal Patient to report independence with HEP Target Visit 4 Progress Met PT Problem 2 PT Problem #2 Impaired Functional Mobil PT Goal 1 Goal 1. Patient to demonstrate ability to get up from ground with independence for fall recovery 2. Patient to deny fall since start of PT 3. Patient to score >24 on Tinetti balance scale to decrease fall risk within the home 4. Patient to ambulate 1200' during 6 min walk test to improve community ambulation Target Visit 8 Progress Met
--- NOTE | 2023-09-13 13:47 | PTOPDC ---
Assessment and note entered by Wanda To DPT Evaluation Information Assessment Status Discharge Diagnosis impaired balance Onset 08/09/23 Subjective Information patient reports the only fall she has had was getting onto her bike but has been able to get on successfully since then. she reports she is independent with HEP. she reports she feels her balance is good. Reported Pain Level Pain Score 0: Self Report Assessment PT Clinical Summary Mrs. Huff attended 8 visits of skilled PT and met all set goals. She demonstrates low fall risk with functional testing, ability to get up from the ground level and independence with HEP. Patient is agreeable to DC this date due to all goals met during POC. Plan of Care PT Services Indicated No
== END 2023-09-13 13:55 | disposition home or self-care (01) ==
LOC: CHSPT 15:51
DX: C34.11 Malignant neoplasm of upper lobe, right bronchus or lung (principal); R26.89 Other abnormalities of gait and mobility
CPT/HCPCS: 97110; 97112; 97161

== ENCOUNTER 2024-06-12 11:55 | Outpatient (RCR) | payer OTHER, SELFPAY ==
--- NOTE | 2024-06-12 12:10 | OPREHPOC ---
Outpatient Therapy Plan of Care This is a Multidisciplinary Plan of Care that may contain components documented by all disciplines (PT, OT, and ST.) PT Problem 1 PT Problem #1 Knowledge Deficit PT Goal 1 Goal / Goal Update The patient will be independent in a home exercise program Target Visit 2 PT Problem 2 PT Problem #2 Pain PT Goal 1 Goal / Goal Update The patient will report no greater than 3/10 low back pain with prolonged standing for work. Target Visit 12 PT Problem 3 PT Problem #3 Impaired Functional Mobility PT Goal 1 Goal / Goal Update The patient will demonstrate 15% or less self perceived disability per the Back Index questionnaire. Target Visit 12 PT Problem 4 PT Problem #4 Impaired Strength PT Goal 1 Goal / Goal Update The patient will improve right hip abduction, upper abdominal, lower abdominal, and back extension strength to 4/5 to improve support to the lumbosacral spine. Target Visit 12 PT Problem 5 PT Problem #5 Impaired Endurance PT Goal 1 Goal / Goal Update The patient will ambulate 1,200 feet during the 6 minute walk test with no toe drag and 2/10 or less low back pain reported to improve community ambulation. Target Visit 12
--- NOTE | 2024-06-12 12:10 | PTOPEVAL1 ---
Assessment and note entered by Rosibel Romero, PT Evaluation Information Assessment Status Evaluation ICD-10 Condition Codes (PT) Pain in low back M54.50 Other ICD-10 Condition Codes ( G89.29 PT) Onset 04/23/24 Subjective Information Ilda Huff reports she has been having lower back pain since she had a stroke in 2022. She notes the pain is in the center of the lower back and worse with standing for a long period. 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 Her pain is worse after work. She also notes pain when she lays on her side and with walking through the grocery store. She has not had a recent x-ray but did have one in 2023 that her daughter, who is a RN, told her showed a bulging disc at L5. She has a history of a drop foot on the right side since her stroke as well. She does not wear a brace or device for the drop foot and has fallen a couple times due to her foot catching . Reported Pain Level Pain Score 0: Self Report Assessment PT Clinical Summary Ilda Huff presents with chronic low back pain that has been present since she had a stroke in 2022. She also continues to have right foot drop that also started after her stroke. She has difficulty with sleeping, standing, and walking which makes working at a grocery store and grocery shopping difficult. She has also had falls due to her right foot drop. She objectively demonstrates decreased right hip and ankle strength; decreased core strength; decreased and painful lumbar AROM; decreased hamstring, hip flexor, and piriformis flexibility; tenderness at the L5 spinous process; and positive special tests for lumbar nerve root irritation. She will benefit from skilled PT to address these limitations. Plan of Care Interventions Electrical Stimulation,Hot Pack/Cold Pack,Manual Therapy,Mechanical Traction,Neuro Re-education, Patient/Caregiver Education,Therapeutic Activities ,Therapeutic Exercise PT Services Indicated Yes Treatment Frequency and 3 times a week for 12 visits Duration These treatments will address the objective and functional deficits as defined above. The patient will be advanced safely and appropriately in order for the patient to progress towards his/her prior level of function. Additional exercises will be introduced and as well as a comprehensive home exercise program upon discharge, if needed, ?to ensure carryover of functional gains achieved in the clinic. This treatment plan has been reviewed and agreement upon by the patient.
--- NOTE | 2024-07-01 16:51 | OPREHPOC ---
Outpatient Therapy Plan of Care This is a Multidisciplinary Plan of Care that may contain components documented by all disciplines (PT, OT, and ST.) PT Problem 1 PT Problem #1 Knowledge Deficit PT Goal 1 Goal / Goal Update The patient will be independent in a home exercise program Target Visit 2 Progress Partially Met PT Goal 2 Goal / Goal Update continue to progress Target Visit 12 PT Problem 2 PT Problem #2 Pain PT Goal 1 Goal / Goal Update The patient will report no greater than 3/10 low back pain with prolonged standing for work. Target Visit 12 Progress Not Met PT Goal 2 Goal / Goal Update continue PT Problem 3 PT Problem #3 Impaired Functional Mobility PT Goal 1 Goal / Goal Update The patient will demonstrate 15% or less self perceived disability per the Back Index questionnaire. Target Visit 12 Progress Not Met PT Goal 2 Goal / Goal Update continue PT Problem 4 PT Problem #4 Impaired Strength PT Goal 1 Goal / Goal Update The patient will improve right hip abduction, upper abdominal, lower abdominal, and back extension strength to 4/5 to improve support to the lumbosacral spine. Target Visit 12 Progress Not Met PT Goal 2 Goal / Goal Update continue PT Problem 5 PT Problem #5 Impaired Endurance PT Goal 1 Goal / Goal Update The patient will ambulate 1,200 feet during the 6 minute walk test with no toe drag and 2/10 or less low back pain reported to improve community ambulation. Target Visit 12 Progress Not Met PT Goal 2 Goal / Goal Update continue
--- NOTE | 2024-07-01 16:51 | PTOPPROG ---
Assessment and note entered by Rosibel Romero, PT Evaluation Information Assessment Status Progress ICD-10 Condition Codes (PT) Pain in low back M54.50 Other ICD-10 Condition Codes ( G89.29 PT) Onset 04/23/24 Subjective Information Ilda Huff reports she continues to have low back pain with prolonged standing of more than one hour. 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 She is using a heat pad to decrease pain. She denies falls since starting PT. Assessment PT Clinical Summary Ilda Huff has completed 6 skilled PT visits for low back pain. Pain has been present since she sustained a CVA in 2022. She is reporting no big change in low back pain since she began PT. She continues to have increased pain with standing more than one hour at a time which makes working at a grocery store difficult. She objectively demonstrates mild improvements in lumbar lateral flexion AROM and hamstring flexibility. She no longer demonstrates increased back pain with straight leg raise testing. She continues to have decreased core strength, decreased right hip strength, decreased right ankle dorsiflexion strength. She is progressing toward her goals but has not met them at this time. She will continue to benefit from skilled PT for 6 additional visits . Plan of Care Interventions Electrical Stimulation,Hot Pack/Cold Pack,Neuro Re -education,Patient/Caregiver Education,Therapeutic Activities,Therapeutic Exercise PT Services Indicated Yes Treatment Frequency and Continued skilled PT 2 times a week for 6 more Duration visits These treatments will address the objective and functional deficits as defined above. The patient will be advanced safely and appropriately in order for the patient to progress towards his/her prior level of function. Additional exercises will be introduced and as well as a comprehensive home exercise program upon discharge, if needed, ?to ensure carryover of functional gains achieved in the clinic. This treatment plan has been reviewed and agreement upon by the patient.
--- NOTE | 2024-07-23 14:10 | OPREHPOC ---
Outpatient Therapy Plan of Care This is a Multidisciplinary Plan of Care that may contain components documented by all disciplines (PT, OT, and ST.) PT Problem 1 PT Problem #1 Knowledge Deficit PT Goal 1 Goal / Goal Update The patient will be independent in a home exercise program Target Visit 2 Progress Partially Met PT Goal 2 Goal / Goal Update continue to progress Target Visit 24 PT Problem 2 PT Problem #2 Pain PT Goal 1 Goal / Goal Update The patient will report no greater than 3/10 low back pain with prolonged standing for work. Target Visit 12 Progress Not Met PT Goal 2 Goal / Goal Update continue Target Visit 24 PT Problem 3 PT Problem #3 Impaired Functional Mobility PT Goal 1 Goal / Goal Update The patient will demonstrate 15% or less self perceived disability per the Back Index questionnaire. Target Visit 12 Progress Not Met PT Goal 2 Goal / Goal Update continue Target Visit 24 PT Problem 4 PT Problem #4 Impaired Strength PT Goal 1 Goal / Goal Update The patient will improve right hip abduction, upper abdominal, lower abdominal, and back extension strength to 4/5 to improve support to the lumbosacral spine. Target Visit 12 Progress Partially Met PT Goal 2 Goal / Goal Update continue Target Visit 24 PT Problem 5 PT Problem #5 Impaired Endurance PT Goal 1 Goal / Goal Update The patient will ambulate 1,200 feet during the 6 minute walk test with no toe drag and 2/10 or less low back pain reported to improve community ambulation. Target Visit 12 Progress Not Met PT Goal 2 Goal / Goal Update continue Target Visit 24
--- NOTE | 2024-07-23 14:10 | PTOPPROG ---
Assessment and note entered by Rosibel Romero, PT Evaluation Information Assessment Status Progress ICD-10 Condition Codes (PT) Pain in low back M54.50 Other ICD-10 Condition Codes ( G89.29 PT) Onset 04/23/24 Subjective Information Ilda Huff reports her back pain is getting a little better but her progress is slow. She continues to have increased pain with prolonged walking and standing. 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 She reports she has to use heat on her back after work and after PT to decrease her pain. She has been to pain management but has not been given any medication to help with her pain. Assessment PT Clinical Summary Ilda Huff has completed 12 skilled PT visits for low back pain. She is reporting a slow improvement in her back pain since initiating PT. She continues to have increased pain and limitations with prolonged walking and standing. She has to use heat after work and after PT. She objectively demonstrates improved hip and core strength, improved balance, and improved tolerance to walking with the 6 minute walk test. She does continue to have deficits in core and hip strength , right toe drag occasionally, decreased dynamic balance, and decreased tolerance for ambulation. She will continue to benefit from skilled PT to further address ongoing physical and functional limitations. She has met . Plan of Care Interventions Neuro Re-education,Patient/Caregiver Education, Therapeutic Activities,Therapeutic Exercise PT Services Indicated Yes Treatment Frequency and Continued skilled PT 2 times a week for 6 more Duration visits These treatments will address the objective and functional deficits as defined above. The patient will be advanced safely and appropriately in order for the patient to progress towards his/her prior level of function. Additional exercises will be introduced and as well as a comprehensive home exercise program upon discharge, if needed, ?to ensure carryover of functional gains achieved in the clinic. This treatment plan has been reviewed and agreement upon by the patient.
--- NOTE | 2024-07-23 14:50 | PTOPPROG ---
Assessment and note entered by Rosibel Romero, PT Evaluation Information Assessment Status Progress ICD-10 Condition Codes (PT) Pain in low back M54.50 Other ICD-10 Condition Codes ( G89.29 PT) Onset 04/23/24 Subjective Information Ilda Huff reports her back pain is getting a little better but her progress is slow. She continues to have increased pain with prolonged walking and standing. 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 She reports she has to use heat on her back after work and after PT to decrease her pain. She has been to pain management but has not been given any medication to help with her pain. Assessment PT Clinical Summary Ilda Huff has completed 12 skilled PT visits for low back pain. She is reporting a slow improvement in her back pain since initiating PT. She continues to have increased pain and limitations with prolonged walking and standing. She has to use heat after work and after PT. She objectively demonstrates improved hip and core strength, improved balance, and improved tolerance to walking with the 6 minute walk test. She does continue to have deficits in core and hip strength , right toe drag occasionally, decreased dynamic balance, and decreased tolerance for ambulation. She will continue to benefit from skilled PT to further address ongoing physical and functional limitations. She has met . Plan of Care Interventions Neuro Re-education,Patient/Caregiver Education, Therapeutic Activities,Therapeutic Exercise PT Services Indicated Yes Treatment Frequency and 2 times a week for 12 visits Duration These treatments will address the objective and functional deficits as defined above. The patient will be advanced safely and appropriately in order for the patient to progress towards his/her prior level of function. Additional exercises will be introduced and as well as a comprehensive home exercise program upon discharge, if needed, ?to ensure carryover of functional gains achieved in the clinic. This treatment plan has been reviewed and agreement upon by the patient.
--- NOTE | 2024-09-03 16:29 | OPREHPOC ---
Outpatient Therapy Plan of Care This is a Multidisciplinary Plan of Care that may contain components documented by all disciplines (PT, OT, and ST.) PT Problem 1 PT Problem #1 Knowledge Deficit PT Goal 1 Goal / Goal Update The patient will be independent in a home exercise program Target Visit 2 Progress Met PT Goal 2 Goal / Goal Update continue to progress Target Visit 24 Progress Met PT Problem 2 PT Problem #2 Pain PT Goal 1 Goal / Goal Update The patient will report no greater than 3/10 low back pain with prolonged standing for work. Target Visit 12 Progress Not Met PT Goal 2 Goal / Goal Update continue Target Visit 24 Progress Not Met PT Problem 3 PT Problem #3 Impaired Functional Mobility PT Goal 1 Goal / Goal Update The patient will demonstrate 15% or less self perceived disability per the Back Index questionnaire. Target Visit 12 Progress Not Met PT Goal 2 Goal / Goal Update continue Target Visit 24 Progress Not Met PT Problem 4 PT Problem #4 Impaired Strength PT Goal 1 Goal / Goal Update The patient will improve right hip abduction, upper abdominal, lower abdominal, and back extension strength to 4/5 to improve support to the lumbosacral spine. Target Visit 12 Progress Met PT Goal 2 Goal / Goal Update continue Target Visit 24 Progress Met PT Problem 5 PT Problem #5 Impaired Endurance PT Goal 1 Goal / Goal Update The patient will ambulate 1,200 feet during the 6 minute walk test with no toe drag and 2/10 or less low back pain reported to improve community ambulation. Target Visit 12 Progress Met PT Goal 2 Goal / Goal Update continue Target Visit 24 Progress Met
--- NOTE | 2024-09-03 16:29 | PTOPDC ---
Assessment and note entered by Rosibel Romero, PT Evaluation Information Assessment Status Progress ICD-10 Condition Codes (PT) Pain in low back M54.50 Other ICD-10 Condition Codes ( G89.29 PT) Onset 04/23/24 Subjective Information Ilda Huff reports her back pain continues to be present after prolonged standing or walking. 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 She notes pain varies between 4/10 and 8/10. She does note she is stronger and more balanced since she started PT. She plans to call and make a follow up with her physician. Reported Pain Level Pain Score 8: Self Report Assessment PT Clinical Summary Ilda Huff has completed 24 skilled PT visits for low back pain. She is reporting pain has not changed much since she has been participating in PT. She still has increased low back pain with prolonged standing and walking which makes her job as a cashier clerk difficult. She does feel stronger and more balanced since she has been participating in PT. She demonstrates improved strength in her core and hips, improved lumbar AROM, improved tolerance to walking, and improved balance. She has met all goals except those pertaining to pain. She plans to follow up with her physician regarding ongoing pain. She will be discharged from formal PT to a home exercise program. Plan of Care PT Services Indicated No
--- NOTE | 2024-09-03 16:30 | PTOPDC ---
Assessment and note entered by Rosibel Romero, PT Evaluation Information Assessment Status Discharge ICD-10 Condition Codes (PT) Pain in low back M54.50 Other ICD-10 Condition Codes ( G89.29 PT) Onset 04/23/24 Subjective Information Ilda Huff reports her back pain continues to be present after prolonged standing or walking. 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 She notes pain varies between 4/10 and 8/10. She does note she is stronger and more balanced since she started PT. She plans to call and make a follow up with her physician. Reported Pain Level Pain Score 8: Self Report Assessment PT Clinical Summary Ilda Huff has completed 24 skilled PT visits for low back pain. She is reporting pain has not changed much since she has been participating in PT. 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 She does feel stronger and more balanced since she has been participating in PT. She demonstrates improved strength in her core and hips, improved lumbar AROM, improved tolerance to walking, and improved balance. She has met all goals except those pertaining to pain. She plans to follow up with her physician regarding ongoing pain. She will be discharged from formal PT to a home exercise program. Plan of Care PT Services Indicated No
== END 2024-09-03 16:53 | disposition home or self-care (01) ==
LOC: CHSPT 11:55
DX: M54.50 Low back pain, unspecified (principal); G89.29 Other chronic pain
CPT/HCPCS: 97110; 97112; 97150; 97161; 97530; 97750

== ENCOUNTER 2024-09-13 19:24 | Emergency (ER) | payer OTHER, SELFPAY ==
--- NOTE | ~2024-09-13 | XR_ITS ---
XR knee LT 3V Ordering provider: Carlton Phillips MD History: . FALL 1 WEEK AGO. ANTERIOR LEFT KNEE PAIN INFERIOR TO PATELLA . Comparison: None. FINDINGS: BONES: No acute fracture or dislocation. JOINT SPACES: Normal. SOFT TISSUES: Normal. IMPRESSION: No acute osseous abnormality left knee. Reviewed, dictated and finalized at location A.
[2024-09-13 19:24] VITALS: BP 124/64; PULSE 68; RESP 16; TEMP 36.6; O2SAT 99
--- OUTSIDE RECORDS SUMMARY | 2024-09-13 19:27 | XMS_ITS | Clinical Summary ---
Author Organization [facility] Address [address] [place] [address] Care Team Providers Care Interior Assemblies Developer Prover Name Role Phone Jovan Dorantes MD Primary Care Provide r Pasha Cason MD Unavailable [phone] Mel Luna NP Unavailable Charles Langley MD Unavailable [phone] Alan Tucker MD Unavailable Allergies Active Allergy Reactions Criticality Noted Date Comments Aspirin Other (See comments) High 11/02/2022 Severe acute liver injury Gsqpbnh-App-Ebc Reductase Inhibitors Other (See comments) High 11/02/2022 Severe acute liver injury Medications ondansetron (ZOFRAN) 8 mg tabletIndication s:Primary cancer of right upper lobe of lung (HCC),Persons encountering health services in other specified circumstances Take 1 tablet (8 mg total) by mouth every 8 (eight) hours as needed for nausea or vomiting Use if prochlorperazine does not stop nausea 24 tablet 3 021 Active lidocaine-priloc guerrero creamIndications :Administration of Local Anesthesia APPLY TOPICALLY NEEDED FOR PAIN APPLY TO PORT SITE 60 MINUTES PRIOR TO EACH USE, COVER WITH PLASTIC WRAP. 30 g 2 022 Active prochlorperazine (COMPAZINE) 10 mg tabletIndication s:Primary cancer of right upper lobe of lung (HCC),Persons encountering health services in other specified circumstances TAKE 1 TABLET BY MOUTH EVERY 6 HOURS NEEDED FOR NAUSEA/VOMITING - USE 1ST 120 tablet 3 023 Active ergocalciferol (VITAMIN D) 50,000 unit capsule TAKE 1 CAPSULE BY MOUTH ONE TIME PER WEEK 4 capsule 2 024 Active clopidogreL (PLAVIX) 75 mg tabletIndication s:Cerebrovascula r accident (CVA), unspecified mechanism (HCC) Take 1 tablet (75 mg total) by mouth daily 90 tablet 3 024 Active ezetimibe (ZETIA) 10 mg tabletIndication s:Mixed hyperlipidemia Take 1 tablet (10 mg total) by mouth daily 90 tablet 3 024 Active escitalopram (LEXAPRO) 10 mg tablet TAKE 1 TABLET BY MOUTH EVERY DAY 30 tablet 2 025 Active albuterol HFA (PROVENTIL HFA,VENTOLIN HFA,PROAIR HFA) 90 mcg/actuation inhalerIndicatio ns:Primary cancer of right upper lobe of lung (HCC) Inhale 2 puffs every 6 (six) hours as needed for wheezing 8.5 each 3 025 Active ALPRAZolam (XANAX) 0.5 mg tablet TAKE 1 TABLET (0.5 MG TOTAL) BY MOUTH 3 (THREE) TIMES A DAY NEEDED FOR ANXIETY. 90 tablet 1 025 Active fluticasone propionate (FLONASE) 50 mcg/actuation nasal spray SPRAY 1 SPRAY INTO EACH NOSTRIL EVERY DAY 16 mL 3 025 Active baclofen (LIORESAL) 10 mg tablet Take 1 tablet (10 mg total) by mouth nightly 30 tablet 1 025 Active gabapentin (NEURONTIN) 300 mg capsuleIndicatio ns:Neuropathic pain Take 1 capsule (300 mg total) by mouth 3 (three) times a day 90 capsule [address] (PROTONIX) 40 mg EC tablet TAKE 1 TABLET BY MOUTH EVERY DAY 30 tablet 3 025 Active folic acid (FOLVITE) 1 mg tabletIndication s:Persons encountering health services in other specified circumstances,Pr imary cancer of right upper lobe of lung (HCC) Take 1 tablet by mouth daily starting 7 days before the first treatment and continuing until 21 days after the last pemetrexed treatment 30 tablet 5 020 01/[address] (PROTONIX) 40 mg EC tablet TAKE 1 TABLET BY MOUTH EVERY DAY 30 tablet 3 024 09/09 Discontinued baclofen (LIORESAL) 10 mg tablet TAKE 1 TABLET BY MOUTH EVERY DAY AT NIGHT 30 tablet 1 025 08/21 Discontinued( Reorder) gabapentin (NEURONTIN) 300 mg capsuleIndicatio ns:Neuropathic pain TAKE 1 CAPSULE BY MOUTH THREE TIMES A DAY 90 capsule 1 025 08/28 Discontinued( Reorder) Active Problems Problem Noted Date Diagnosed Date LAD (lymphadenopathy) 02/02/2023 Agranulocytosis 10/31/2022 Assessment & Plan (11/05/2022 12:13 PM CDT): Stable anemia, but worsening neutropenia this admission starting 10/31. Unclear etiology overall given no recent cancer-directed treatment, infectious workup including extensive viral and nutritional workup negative, and overall no new medication changes this admission. Of note, patient did receive 1 unit of platelets on 10/30 PM prior to planned liver biopsy while being on ASA. - CTM BMT CBC daily - Hematology consulted, appreciate recs: overall unclear etiology, but recommend monitoring for now - Per oncology, given low concern for hematologic malignancy, started G-CSF 11/03 and received 3 doses. Severe protein-calorie malnutrition 10/28/2022 Jaundice 10/27/2022 Assessment & Plan (11/02/2022 4:40 PM CDT): Pt went to OSH 10/25 with c/f slurred speech (since 10/21) and jaundice (since 10/21). At OSH, found to have elevated liver enzymes on 10/27 AST >796 ALT >1000, t bili of 9, albumin 2.3, protein 5.7, K of 3.1, Cr of 0.95, Na of 136. Labs from 10/25 with Hgb of 11.4, wbc of 7.1, plts 170, INR 1, PT/PTT of 11.3/36.5, UA with s.g.g of 1.025, 3+ protein, 3+ blood, + graunular casts, trace LE, 3+ bili, 6-10 rbcs, 0-3 wbcs, 2+ bacteria. VSS and wnl there. - in our ED: Na of 133, K of 3.4, Cr 0.96 (BL 0.9 to 1), t bili 10.7 (last wnl), ALT/AST/ALP 1122/1973/1481 (all nl previously) Mg 2.2, WBC 5.6, hgb 11.1 (last 10-12), plts 159 (last 257). VSS/wnl. Given no meds. Images submitted for overread. - OSH image reads: CT a/p with/without 10/25 showed mild thicening of the gastric wall, suspicious for gastritis, abd ultrasound 10/25 that showed contracted GB (limits eval for GB pathology), otherwise normal limited abd ultrasound. - Overread CT a/p at [facility]: Mild periportal edema, which can be seen in the setting of hepatitis. No biliary ductal dilatation. - EBV, CMV, acute hep panel all negative, HSV and HCV PCR negative - Status post dexamethasone 4 mg x 3 doses only, held since 10/28 - Underwent liver biopsy 10/31, pathology most consistent with drug induced liver injury favored to be secondary to statin and/or ASA, less likely immunotherapy - Hepatology c/s following, appreciate recs: permanently discontinue statin and ASA Right sided weakness 07/27/2022 Assessment & Plan (11/04/2022 2:52 PM CDT): Pt admitted 07/26 through 08/02 with speech difficulty, R arm/leg weakness. Had stroke workup and was diagnosed with basal ganglia infarction. Workup included MRI, TTE (no shunt), LP (unremarkable), EEG (no epileptiform discharges), neg oligoclonal bands on LP. Discharged on ASA, atorvastatin and 30 day loop recorder. - residual deficits: R hand weakness. Now with reported recurrent speech difficulties but none appreciated while inpatient - MRI 10/16: showed known mets, some unchanged/decreased, but several with increased size; impression: overall pictures suggests a mixture of metastatic and lacunar infarctions, some c/f progressive metastatic dz. Last saw NSGY 10/16, they felt that new lesions more consistent with infarction. - OSH CTH 10/25, focal low attenuation areas in bilateral basal ganglia, likely chronic microvascular ischemic change, if concern for focal acute ischemia MRI recommended - Received dexamethasone 4 mg x 3 doses first day of admission, subsequently held per hepatology recs - bMRI 10/28 demonstrates no interval increase in basal ganglia lesions or etiology of right sided weakness. - results from loop recorder last admission: mostly NSR, two runs of NSVT (max of 5 beats), only pushed button 3 times and corresponded to NSR - Liver injury thought secondary to ASA and/or statin and will need to discontinue both - Neurology consulted: start clopidogrel and ezetimibe, recommend Ver[employer]Now clopidogrel in 1 week to ensure adequate response with liver injury Assessment & Plan (08/02/2022 12:05 PM CDT): Pt presented to the ED with slurred speech and right sided weakness on 07/25/22, NIHSS 8 code stroke was called, CT head was neg for ICH, old lacunar infarct, trace left high frontal edema identified, and CTa head and neck non revealing, noted to have 2x1.7 cm right upper lobe nodule, she was deemed not a TPA candidate Etiology: worsening vasogenic edema, less likely subacute stroke, Radiation necrosis - CT head showed multiple hypodensities in the basal ganglia bilaterally, which correspond to the sites of enhancing lesions seen on recent brain MRIs dated 06/12/2022 and 07/12/2022.Mild irregularity of the M1 and M2 segments of the left middle cerebral artery, which could represent atherosclerosis. Alternatively, bulbous regularity could be related to vasculitis, and this is felt to be less likely given that vasculitis would be expected to demonstrate more diffuse involvement. - See basilar infarct - PT reevaluated yesterday and is recommending inpt rehab - Insurance declined inpt rehab. Appeal process started. - Pt to discharge home with home PT/OT until appeal is processed and hopefully is able to go to inpt rehab from which she would greatly benefit. Lacunar stroke 07/27/2022 Assessment & Plan (08/02/2022 12:09 PM CDT): Brain MRI on 07/27 showing New acute/early subacute left finn radiata/lentiform nucleus infarct and evidence of multiple old infarcts. Given location and recurrent infarcts differential is broad including vasculitis, infection. embolic, radiation, metastatic meningeal disease. - Neurology consulted. - Brain MRI with vessel wall imaging 07/28: No intracranial abnormal vessel wall enhancement - Hgb A1C 5.3, FFN210, chol 229, TTE w bubble (EF 63%, Grade 1 DD, no intra- artrial shunt). - s/p successful LP on 07/28: cell count unrevealing, protein 25 , glucose 64, infectious workup negative to date. Oligoclonal bands negative, Igg index 742, cytology negative for malignancy - Continue ASA 325 mg and atorvastatin 80 mg daily. - On 07/29 with episode of new right sided tingling, repeat MRI brain WO contrast did not show recurrent/new infarct. - EEG with no epileptiform discharges or seizures. Weakness 07/26/2022 Encounter for follow-up exam ination after completed treatment for malignant neoplasm 11/02/2021 Personal history of irradiation 11/02/2021 Persons encountering health services in other specified circumstances 01/08/2020 Primary cancer of right upper lobe of lung 01/06 Assessment & Plan (11/03/2022 2:46 PM CDT): Hx of NSCLC with mets to brain. S/p Sterotactic radiation to 5 brain lesions on 01/01/20. S/p Relatlimab, nivolumab, and ipilimumab (HRPO [id number]), last in 05/2022 - MRI 10/16: showed known mets, some unchanged/decreased, but several with increased size; impression: overall pictures suggests a mixture of metastatic and lacunar infarctions, some c/f progressive metastatic dz. Last saw NSGY 10/16, they felt that new lesions more consistent with infarction. - pt of Dr. Langley, last seen 08/2022 - onc c/s following Assessment & Plan (08/02/2022 12:03 PM CDT): hx of metastatic NSCLC stage III with brain and lung mets( she has previously undergone Gamma Knife radiosurgery on 01/01/2020 to 5 brain metastases, including a left parietal lesion measuring 1.6 cm in diameter, a right frontal lesion measuring 0.7 cm in diameter, a left frontal lesion measuring 1.6 cm in diameter, a second left frontal lesion measuring 1 cm in diameter and a third left frontal lesion measuring 7 mm in diameter, s/p clinical trial Relatlimab/IPI/NIvo - Med onc consulted. Follow up outpatient. Malignant neoplasm metastatic to brain 0 Assessment & Plan (10/27/2022 9:35 PM CDT): See R sided weakness problem Encounters Date Type Department Care Team Description 07/17/2024 10:20 AM CDT Office Visit [facility] [place] [address] Charles Langley MD Primary cancer of right upper lobe of lung (HCC) (Primary Dx); Low back pain, unspecified back pain laterality, unspecified chronicity, unspecified whether sciatica present 07/14/2024 4:30 PM CDT Clinical Support [facility] - Lab Collection [address] [place] [address] Primary cancer of right upper lobe of lung (HCC) 07/14/2024 3:46 PM CDT - 07/14/2024 11:59 PM CDT Hospital Encounter [facility] - MRI [address] [place] [address] Malignant neoplasm metastatic to brain (HCC) Discharge Disposition: Discharge to home or self care 07/14/2024 3:45 PM CDT - 07/14/2024 11:59 PM CDT Hospital Encounter [facility] - CT [address] [place] [address] Primary cancer of right upper lobe of lung (HCC) Discharge Disposition: Discharge to home or self care 07/14/2024 3:30 PM CDT Clinical Support [facility] Lab [address] [place] [address] Primary cancer of right upper lobe of lung (HCC) from Last 3 Months Immunizations Immunization Administration Dates Next Due Influenza, Quadrivalent, Tatiana l Culture-based MDCK, Antibiotic Free, Intramuscular 03/18/2019 Influenza, Quadrivalent, Spl it, Preservative Free, Intramuscular 03/06/2018 Pfizer SARS-CoV-2 Monovalent Vaccination (12+ Yrs) PURPLE 03/30/2021,08/09/2020,07/18/2020 Surgical History Surgery Date Site/Laterality Comments PORT PLACEMENT CHEST >5 YEARS 04/06/2020 N/A US GUIDED BIOPSY LIVER 10/31/2022 N/A OTHER SURGICAL HISTORY gamma knife of brain Medical History Medical History Date Comments Lung cancer (HCC) Acute arterial ischemic stro ke, multifocal, multiple vascular territories (HCC) COPD (chronic obstructive pu lmonary disease) (HCC) RSV (respiratory syncytial virus infection) Stroke (cerebrum) (HCC) 07/2022 slight r ight sided weakness Brain cancer (HCC) Low back pain Leg pain, diffuse, right Family History Medical History Relation Name Comments Brain Aneurysm Father Heart attack Father Breast cancer Mother Diabetes Mother Relation Name Status Comments Father Mother Alive Social History Tobacco Use Types Packs/Day Years Used Date Smoking Tobacco: Former Cigarettes 2 40 0 12/1978 - 12/2018 Passive Smoke Exposure: Past Smokeless Tobacco: Never Tobacco Cessation:Counseling Given: Not Answered Alcohol Use Standard Drinks/Week Comments Never 0 (1 standard drink = 0.6 oz pur e alcohol) Social Connection and Isolat ion Panel [NHANES] Answer Date Recorded In a typical week, how many times do you talk on the phone with family, friends, or neighbors? More than three times a week 10/30/2022 How often do you get togethe r with friends or relatives? More than three times a week 10/30/2022 How often do you attend chur or episcopal services? 1 to 4 times per year 10/30/2022 Do you belong to any clubs o r organizations such as catholic groups, unions, fraternal or athletic groups, or school groups? No 10/30/2022 How often do you attend meet ings of the clubs or organizations you belong to? Never 10/30/2022 Are you , , di vorced, , never , or living with a partner? 10/30/2022 AUDIT-C Answer Date Recorded Q1: How often do you have a drink containing alc ohol? Monthly or less 04/23/2024 Q2: How many drinks containi ng alcohol do you have on a typical day when you are drinking? 1 or 2 04/23/2024 Q3: How often do you have si x or more drinks on one occasion? Never 04/23/2024 Overall Financial Resource Strain (CARDIA) Answe r Date Recorded How hard is it for you to pa y for the very basics like food, housing, medical care, and heating? Not hard at all 10/30/2022 PHQ-2 Answer Date Recorded PHQ-2 Total Score 0 10/30/2022 Hunger Vital Sign Answer Date Recorded Within the past 12 months, y ou worried that your food would run out before you got the money to buy more. Never true 01/28/20 24 Within the past 12 months, t he food you bought just didn't last and you didn't have money to get more. Never true 01/28/2024 PRAPARE - Transportation Answer Date Re corded In the past 12 months, has l ack of transportation kept you from medical appointments or from getting medications? No 10/06 In the past 12 months, has l ack of transportation kept you from meetings, work, or from getting things needed for daily living? No 10/30/2022 Housing Stability Vital Sign Answer Ajit e Recorded In the last 12 months, was t here a time when you were not able to pay the mortgage or rent on time? No 10/30/2022 In the last 12 months, how many places have you lived? 1 10/30/2022 In the last 12 months, was t here a time when you did not have a steady place to sleep or slept in a snf (including now)? No 10/30/2022 Personal Safety Answer Date Recorded Have you ever been in or are you currently in a harmful physical or emotional relationship or is someone making you feel afraid or unsafe? 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 Not on file Not on file Not on file Obstetrics History Last Filed Vital Signs Vital Sign Reading Time Taken Comments Blood Pressure 127/83 07/17/2024 10:20 AM CDT Pulse 64 07/17/2024 10:20 AM CDT Temperature 36.6 C (97.9 F) 07/17/2024 10:20 AM CDT Respiratory Rate 17 07/17/2024 10:2 0 AM CDT Oxygen Saturation 100% 07/17/2024 10: 20 AM CDT Inhaled Oxygen Concentration - - Weight 55.7 kg (122 lb 12.8 oz) 025 10:20 AM CDT Height 154.9 cm (5' 1 ) 04/23/2024 2:09 PM [employer] Body Mass Index 23.2 04/23/2024 2:09 PM [employer] Plan of Treatment Health Maintenance Due Date Last Done Comments Breast Cancer Screening-Mammogram 1965 Cervical Cancer Screening 1963 Colon Cancer Screening-Colonoscopy 1963 DTaP/Tdap/Td Vaccine (1 - Tdap) 1974 Hepatitis B Screening 1981 Regular Well Visit/Exam 18-64 1981 Pneumococcal vaccine <65 (1 of 2 - PCV) 1982 Zoster Vaccine (1 of 2) 1982 Depression Screening 10/28/2023 10/27/2022, 07/27/19 Covid-19 Vaccine ( season) 2024 03/30/2021, 08/09/2020, 07/18/2020 Influenza Vaccine (Season Ended) 2025 03/18/20, 03/06/2018 Hepatitis C Screening Completed 10/28/2022 , 10/28/2022, 01/22/2020 Goals Goal Patient Goal Type Associated Problems Recent Progress Patient-Stated? Author CCM Chronic Pain Care Plan Chronic Care Management Fam Carl, RN Note: Problem: Chronic Pain Goals: 1. Minimize further functional decline 2. Maximize quality of life 3. Control pain Strategies: - Activity/exercise program recommendation - Conservative stepwise pain medicine strategy with multi-disciplinary approach - Recommend healthy lifestyle strategies and compensatory methods as needed Medical Devices Implanted Type Area Cabin Service Agent Device Identifier Shelf Expiration Date Model / Serial / Lot [employer] [id number] Xcela 8fr 1.6mm 1 Lumen Low Profile Power Injectable Fill Suture - [id number] Implanted:Qty: 1 on 04/06/2020 at [facility] [employer] 12/23/2024 [id number] / / [id number] Procedures Procedure Name Priority Date/Time Associated Diagnosis Comments MRI BRAIN TUMOR W WO CONTRAST Schedule MICHAELLE, Read MICHAELLE (Appt Today, Awaiting Results) 07/14/2024 5:06 PM CDT Malignant neoplasm metastatic to brain (HCC) CT CHEST ABDOMEN PELVIS W CONTRAST Schedule Routine, Read Routine (OP Routine) 07/14/2024 4:32 PM CDT Primary cancer of right upper lobe of lung (HCC) EGFR STAT 07/14/2024 3:40 PM CDT Primary cancer of right upper lobe of lung (HCC) DIFFERENTIAL AUTO Routine 07/14/2024 3:4 0 PM CDT Primary cancer of right upper lobe of lung (HCC) CBC WITH AUTO DIFFERENTIAL Routine 07/14/2024 3:40 PM CDT Primary cancer of right upper lobe of lung (HCC) COMPREHENSIVE METABOLIC PANEL STAT 07/14/2024 3:40 PM CDT Primary cancer of right upper lobe of lung (HCC) HEPATITIS PANEL, ACUTE Routine 10/28/2022 1:03 AM CDT from Last 3 Months or Most Recently Relevant to Health Maintenance Results * MRI Brain Tumor W WO Contrast (07/14/2024 5:06 PM CDT) Anatomical Region Laterality Modality Head and Neck N/A Magnetic Resonan ce 07/15/2024 10:4 5 AM CDT Impressions 07/15/2024 12:58 PM CDT 1. No significant interval change in size of a curvilinear region of enhancement in the left parietal subcortical region when compared to prior examinations. 2. No new intracranial metastasis. 3. Vague area of curvilinear enhancement within the right caudate is not appreciably changed when compared to prior examinations. Dictated by: Yuri Toro M.D. The radiology attending physician has personally reviewed this study, and had reviewed and/or edited this written report and agrees with it. Electronically signed by: Pooja Hoover M.D. Narrative 07/15/2024 12:58 PM CDT EXAMINATION: Magnetic resonance imaging (MRI) of the brain and brainstem without and with contrast HISTORY: Lung adenocarcinoma metastatic to the brain status post stereotactic radiation to 5 brain lesions on 01/01/2020. Patient received adjuvant chemotherapy. TECHNIQUE: Multiplanar multi-weighted MRI of the brain and brainstem was performed without and with intravenous contrast using the brain tumor protocol. This included high-resolution 3D T1-weighted images without and with intravenous contrast and dynamic susceptibility contrast data for perfusion analysis. Contrast information: 10 mL Gadoterate Meglumine COMPARISON: 04/21/2024, 01/21/2024, 11/06/2023, 10/16/2022, 07/12/2022 FINDINGS: No significant interval change in size of a curvilinear region of enhancement in the left parietal subcortical region, best seen on series 38 image 21, measuring up to 5 mm. Susceptibility artifact noted in the left frontal lobe likely represents sequela of prior treatment-related changes of microhemorrhage. No new intracranial metastasis. Small foci of late subacute blood in the right caudate with restricted diffusion adjacent to T1-weighted signal. This area demonstrates a vague area of curvilinear enhancement along the right caudate which is not significantly changed when compared to prior examination. Areas of T2 hyperintensity within the bilateral putamen, globus pallidus, and head of the caudate likely representing chronic infarcts. Additional mild periventricular T2/FLAIR hyperintensities are likely sequela of chronic micro-vascular disease. The superior sagittal sinus demonstrates normal venous flow. The corpus callosum is normal in shape and signal intensity. The posterior fossa is unremarkable. The pituitary and sella are normal. The brainstem and craniocervical junction are unremarkable. Diffusion weighted images reveal no hyperintensities to suggest acute cerebral infarction. The ventricles are normal in size and position without evidence of hydrocephalus. The paranasal sinuses are normal. The visualized portions of the mastoids are unremarkable. The orbits appear normal. Normal flow voids are demonstrated in the carotid arteries and basilar artery. Procedure Note VoPooja MD - 07/15/2024 EXAMINATION: Magnetic resonance imaging (MRI) of the brain and brainstem without and with contrast HISTORY: Lung adenocarcinoma metastatic to the brain status post stereotactic radiation to 5 brain lesions on 01/01/2020. Patient received adjuvant chemotherapy. TECHNIQUE: Multiplanar multi-weighted MRI of the brain and brainstem was performed without and with intravenous contrast using the brain tumor protocol. This included high-resolution 3D T1-weighted images without and with intravenous contrast and dynamic susceptibility contrast data for perfusion analysis. Contrast information: 10 mL Gadoterate Meglumine COMPARISON: 04/21/2024, 01/21/2024, 11/06/2023, 10/16/2022, 07/12/2022 FINDINGS: No significant interval change in size of a curvilinear region of enhancement in the left parietal subcortical region, best seen on series 38 image 21, measuring up to 5 mm. Susceptibility artifact noted in the left frontal lobe likely represents sequela of prior treatment-related changes of microhemorrhage. No new intracranial metastasis. Small foci of late subacute blood in the right caudate with restricted diffusion adjacent to T1-weighted signal. This area demonstrates a vague area of curvilinear enhancement along the right caudate which is not significantly changed when compared to prior examination. Areas of T2 hyperintensity within the bilateral putamen, globus pallidus, and head of the caudate likely representing chronic infarcts. Additional mild periventricular T2/FLAIR hyperintensities are likely sequela of chronic micro-vascular disease. The superior sagittal sinus demonstrates normal venous flow. The corpus callosum is normal in shape and signal intensity. The posterior fossa is unremarkable. The pituitary and sella are normal. The brainstem and craniocervical junction are unremarkable. Diffusion weighted images reveal no hyperintensities to suggest acute cerebral infarction. The ventricles are normal in size and position without evidence of hydrocephalus. The paranasal sinuses are normal. The visualized portions of the mastoids are unremarkable. The orbits appear normal. Normal flow voids are demonstrated in the carotid arteries and basilar artery. IMPRESSION: 1. No significant interval change in size of a curvilinear region of enhancement in the left parietal subcortical region when compared to prior examinations. 2. No new intracranial metastasis. 3. Vague area of curvilinear enhancement within the right caudate is not appreciably changed when compared to prior examinations. Dictated by: Yuri Toro M.D. The radiology attending physician has personally reviewed this study, and had reviewed and/or edited this written report and agrees with it. Electronically signed by: Pooja Hoover M.D. us Britt Rojas NP IMG MRI PROCEDURES Final Resu lt * CT Chest Abdomen Pelvis W Contrast (07/14/2024 4:32 PM CDT) Anatomical Region Laterality Modality Body N/A Computed Tomogra phy 07/15/2024 9:30 AM CDT Impressions 07/15/2024 9:30 AM CDT Stable oblong-shaped nodule in the right upper lobe representing treatment changes of past lung cancer with no CT findings suggestive of local recurrence or metastases in the chest, abdomen and pelvis. Electronically signed by: Rosanna Tyler M.D. Narrative 07/15/2024 9:30 AM CDT EXAMINATION: Computed tomography of the chest, abdomen and pelvis with intravenous contrast HISTORY: 59-year-old woman with history of right upper lobe lung cancer TECHNIQUE: Transaxial computed tomographic images of the chest, abdomen, and pelvis were obtained with intravenous contrast according to the standard protocol after the uneventful administration of 69 mL Opti-Ray 350 intravenous contrast. COMPARISON: CT exams of 04/21/2024 and 01/21/2024 FINDINGS: Chest: The posterior segment of the right upper lobe there is an oblong shaped nodule extending from the central bronchovascular bundles to the superior aspect of the oblique fissure and to the posterior pleura. This represents the known lung cancer and associated treatment changes. It appears unchanged since CT of 01/21/2024. For index purposes on series 3 image #54 this nodule measures 2.8 x 1.5 cm, which is similar to the prior exam when remeasured in similar location and fashion. There are no other pulmonary nodules or masses. Mild to moderate centrilobular paraseptal emphysema in the lungs predominating in the upper lobes appears unchanged. No pleural effusion, pleural thickening or nodules. No lymphadenopathy in the chest. The tip of the right internal jugular port type catheter is located in the right atrium close to the superior cavoatrial junction. There is no cardiac mass or thrombus. No pericardial effusion or thickening. Atherosclerotic plaques of the aorta and great vessels noted. Abdomen/Pelvis: The liver, spleen, gallbladder, pancreas, adrenals, and kidneys are normal. The stomach, duodenum, and remaining small bowel demonstrate no wall thickening, inflammation, dilation or mass. There is mild circumferential wall thickening of the distal rectum which could be due to underdistention or due to a mild proctitis. Remainder of the colon appears normal. There is no omental or peritoneal metastatic deposit. No ascites or lymphadenopathy in the abdomen and pelvis identified. Atherosclerotic calcified and noncalcified plaques of the aorta, bilateral common iliac arteries, and its branches noted. No significant stenosis or aneurysm. The bladder is partially decompressed. No adnexal mass. The uterus is mildly atrophied. No inguinal lymphadenopathy. Small fat-containing paraumbilical hernia noted. No inguinal hernia. Bones: There are no lytic or blastic osseous lesions. Degenerative changes of the midthoracic spine noted. Procedure Note Rosanna Tyler MD - 07/15/2024 EXAMINATION: Computed tomography of the chest, abdomen and pelvis with intravenous contrast HISTORY: 59-year-old woman with history of right upper lobe lung cancer TECHNIQUE: Transaxial computed tomographic images of the chest, abdomen, and pelvis were obtained with intravenous contrast according to the standard protocol after the uneventful administration of 69 mL Opti-Ray 350 intravenous contrast. COMPARISON: CT exams of 04/21/2024 and 01/21/2024 FINDINGS: Chest: The posterior segment of the right upper lobe there is an oblong shaped nodule extending from the central bronchovascular bundles to the superior aspect of the oblique fissure and to the posterior pleura. This represents the known lung cancer and associated treatment changes. It appears unchanged since CT of 01/21/2024. For index purposes on series 3 image #54 this nodule measures 2.8 x 1.5 cm, which is similar to the prior exam when remeasured in similar location and fashion. There are no other pulmonary nodules or masses. Mild to moderate centrilobular paraseptal emphysema in the lungs predominating in the upper lobes appears unchanged. No pleural effusion, pleural thickening or nodules. No lymphadenopathy in the chest. The tip of the right internal jugular port type catheter is located in the right atrium close to the superior cavoatrial junction. There is no cardiac mass or thrombus. No pericardial effusion or thickening. Atherosclerotic plaques of the aorta and great vessels noted. Abdomen/Pelvis: The liver, spleen, gallbladder, pancreas, adrenals, and kidneys are normal. The stomach, duodenum, and remaining small bowel demonstrate no wall thickening, inflammation, dilation or mass. There is mild circumferential wall thickening of the distal rectum which could be due to underdistention or due to a mild proctitis. Remainder of the colon appears normal. There is no omental or peritoneal metastatic deposit. No ascites or lymphadenopathy in the abdomen and pelvis identified. Atherosclerotic calcified and noncalcified plaques of the aorta, bilateral common iliac arteries, and its branches noted. No significant stenosis or aneurysm. The bladder is partially decompressed. No adnexal mass. The uterus is mildly atrophied. No inguinal lymphadenopathy. Small fat-containing paraumbilical hernia noted. No inguinal hernia. Bones: There are no lytic or blastic osseous lesions. Degenerative changes of the midthoracic spine noted. IMPRESSION: Stable oblong-shaped nodule in the right upper lobe representing treatment changes of past lung cancer with no CT findings suggestive of local recurrence or metastases in the chest, abdomen and pelvis. Electronically signed by: Rosanna Tyler M.D. Charles Langley MD IMG CT PROCEDURES Final R esult * eGFR (07/14/2024 3:40 PM CDT) eGFR 72 >=60 mL/min/1. 73 m2 Comment: Interpretive Data Reference Interval Normal >/= 90 mL/min/1.73m2 Mildly decreased* 60 - 89 mL/min/1.73m2 Mildly to moderately decreased 45 - 59 mL/min/1.73m2 Moderately to severely decreased 30 - 44 mL/min/1.73m2 Severely decreased 15 - 29 mL/min/1.73m2 Kidney Failure < 15 mL/min/1.73m2 *Relative to young adult level Estimated glomerular filtration rate is determined by the 2020 CKD-EPI equation recommended by the National Kid[employer] (A Unifying Approach to GFR Estimation: Recommendations of the NKF-ASK Task Force on Reassessing the Inclusion of Race in Diagnosing Kidney Disease, JASN 202). The CKD-EPI equation should not be used for patients with unstable renal function and has not been validated in children and those over 70. Current interpretive data was last reviewed 2021. Blood 07/14/2024 3:40 PM CDT 07/14/2024 4:15 PM CDT Charles Langley MD LAB BLOOD ORDERABLES Monica rivera Result [facility] [place] [address] * Differential, auto (07/14/2024 3:40 PM CDT) Neutrophil abs 3.4 1.5 - 6.5 K/cumm Comment:Testing performed by : [facility], [address] [place] [phone] Lymphocyte abs 1.0 0.8 - 3.3 K/cumm [facility] Comment:Testing performed by : [facility], [address] [place] [phone] Monocyte abs 0.4 0.2 - 0.8 K/cumm [facility] Comment:Testing performed by : [facility], [address] [place] [phone] Eosinophil abs 0.1 0.0 - 0.5 K/cumm [facility] Comment:Testing performed by : [facility], [address] [place] [phone] Basophil abs 0.0 0.0 - 0.1 K/cumm [facility] Comment:Testing performed by : [facility], [address] [place] [phone] Neutrophil pct 68.5 % [facility] Comment: Interpretive Data Percent cell count reference ranges are not reported, since discordance with absolute values may lead to misinterpretation of CBC data. Current Interpretive Data was last revised on 2017. Testing performed by: [facility], [address] [place] [phone] Lymphocyte pct 21.2 % [facility] Comment: Interpretive Data Percent cell count reference ranges are not reported, since discordance with absolute values may lead to misinterpretation of CBC data. Current Interpretive Data was last revised on 2017. Testing performed by: [facility], [address] [place] [phone] Monocyte pct 8.0 % [facility] Comment: Interpretive Data Percent cell count reference ranges are not reported, since discordance with absolute values may lead to misinterpretation of CBC data. Current Interpretive Data was last revised on 2017. Testing performed by: [facility], [address] [place], [place] [id number] Eosinophil pct 1.9 % [facility] Comment: Interpretive Data Percent cell count reference ranges are not reported, since discordance with absolute values may lead to misinterpretation of CBC data. Current Interpretive Data was last revised on 2017. Testing performed by: [facility], [address] [place], [place] [phone] Basophil pct 0.4 % [facility] Comment: Interpretive Data Percent cell count reference ranges are not reported, since discordance with absolute values may lead to misinterpretation of CBC data. Current Interpretive Data was last revised on 2017. Testing performed by: [facility], [address] [place] [address] Blood 07/14/2024 3:40 PM CDT 07/14/2024 3:41 PM CDT us Charles Langley MD LAB BLOOD ORDERABLES Monica l Result [facility] [place] [address] * (ABNORMAL) CBC with auto differential (07/14/2024 3:40 PM CDT) WBC 4.9 3.8 - 9.9 K/cumm Comment:Testing performed by : [facility], [address] [place] [address] Hgb 11.3(L) 11.9 - 15.5 g/dL [facility] Comment:Testing performed by : [facility], [address] [place] [address] Hct 33.4(L) 35.6 - 45.5 % [facility] Comment:Testing performed by : [facility], [address] [place] [address] Plt 196 150 - 400 K/cumm [facility] Comment:Testing performed by : [facility], [address] [place] [address] MPV 8.5 6.8 - 10.4 fL [facility] Comment:Testing performed by : [facility], [address] [place] [address] RBC 3.90 3.90 - 5.20 M/cumm [facility] Comment:Testing performed by : [facility], [address] [place] [address] MCV 85.7 81.3 - 96.4 fL [facility] Comment:Testing performed by : [facility], [address] [place] [address] MCH 28.9 27.1 - 33.3 pg [facility] Comment:Testing performed by : [facility], [address] [place] [address] MCHC 33.7 32.3 - 35.7 g/dL [facility] Comment:Testing performed by : [facility], [address] [place] [address] RDW CV 14.7 11.1 - 14.9 % [facility] Comment:Testing performed by : [facility], [address] [place] [address] NRBC abs 0.00 0.00 - 0.01 K/cumm [facility] Comment:Testing performed by : [facility], [address] [place] [address] Blood 07/14/2024 3:40 PM CDT 07/14/2024 3:41 PM CDT us Charles Langley MD LAB BLOOD ORDERABLES Monica rivera Result [facility] [place] [address] * (ABNORMAL) Comprehensive metabolic panel (07/14/2024 3:40 PM CDT) Pathologist [facility] [place] Sodium 141 135 - 145 mmol/L Potassium, pl 3.9 3.3 - 4.9 mmol/L [facility] Chloride 106 97 - 110 mmol/L [facility] CO2 26 22 - 32 mmol/L [facility] Anion gap 9 2 - 15 mmol/L [facility] BUN 16 6 - 25 mg/dL [facility] Creatinine 0.97 0.60 - 1.10 mg/dL [facility] Glucose 88 70 - 199 mg/dL [facility] Comment: Interpretive Data Fasting glucose >/= 126 mg/dl is diagnostic for diabetes. Fasting is defined as no caloric intake for at least 8 hours. Fasting glucose between 100 mg/dl to 125 mg/dl is diagnostic of prediabetes. In a patient with classic symptoms of hyperglycemia or hyperglycemic crisis, a random glucose >/= 200 mg/dl is diagnostic for diabetes. In the absence of unequivocal hyperglycemia, results should be confirmed by repeat testing. The classification and Diagnosis of Diabetes Diabetes Care 2021; 46: S19-S40. Current interpretive data was last revised 2022. Calcium 8.7 8.5 - 10.3 mg/dL [facility] Bilirubin, total 0.2 0.1 - 1.2 mg/dL [facility] Protein, pl 6.6 6.5 - 8.5 g/dL [facility] Albumin 4.0 3.5 - 5.0 g/dL [facility] Alk phos 109 40 - 130 Units/L [facility] ALT 6(L) 7 - 45 Units/L [facility] AST 22 10 - 45 Units/L [facility] Blood 07/14/2024 3:40 PM CDT 07/14/2024 3:44 PM CDT us Charles Langley MD LAB BLOOD ORDERABLES Monica rivera Result [facility] Department [place] [address] * Hepatitis panel, acute (10/28/2022 1:03 AM CDT) Pathologist [facility] [place] Hep A IgM Nonreactive Nonreactive [facility] Hep B core IgM Nonreactive Nonreactive [facility] Hep C Ab Nonreactive Nonreactive [facility] Comment:Antibodies to HCV no t detected. Does NOT exclude the possibility of recent exposure to HCV. Current interpretive data was last revised on 22 HepBsAg Nonreactive Nonreactive [facility] Blood 10/28/2022 1:03 AM CDT 10/28/2022 2:07 AM CDT us Perry Anderson MD LAB MICROBIOLOGY - GENER AL ORDERABLES Final Result [facility] [place] [address] from Last 3 Months or Most Recently Relevant to Health Maintenance Insurance [facility] [email or web address] [facility] Advance Directives For more information, please contact: [phone] * Full Code (Latest Code Status on File) Date Activated Date Inactivated Comments 10/27/2022 10:29 PM 11/05/2022 6:20 PM * Full Code Date Activated Date Inactivated Comments 07/26/2022 10:03 PM 08/02/2022 7:32 PM * Full Code Date Activated Date Inactivated Comments 04/06/2020 12:52 PM 04/06/2020 6:52 PM * Full Code Date Activated Date Inactivated Comments 12/21/2019 9:04 AM 12/24/2019 8:22 PM Care Teams Interior Assemblies Developer Prover Relationship Specialty Start Date End Date Jovan Dorantes MD [address] [place] [address] PCP - General 12/21/19 Pasha Cason MD [address] [place] [address] Referring Physician Neurosurgery 12/24/19 Mel Luna NP [address] [facility] [address] [place] [address] Nurse Practitioner Medical Oncology 06/17/20 Charles Langley MD [address] [place] [address] Medical Oncologist/Cigar Inspector Medical Oncology 07/01/20 Alan Tucker MD [address] [place] [address] Radiation Oncologist Radiation Oncology 11/02/21
--- OUTSIDE RECORDS SUMMARY | 2024-09-13 19:27 | XMS_ITS ---
Author Organization [facility] Address [address] [place] [address] Care Team Providers Care Pipe Organ Technician Name Role Phone Jovan Dorantes MD Primary Care Provide r Pasha Cason MD Unavailable [phone] Mel Luna NP Unavailable Charles Langley MD Unavailable Alan Tucker MD Unavailable Active Problems Problem Noted Date Diagnosed Date [...] abd ultrasound. - Overread CT a/p at [facility]: Mild periportal edema, which can be seen [...] vessel wall enhancement - Hgb A1C 5.3, [id number], chol 229, TTE w bubble (EF 63%, [...] 01/01/20. S/p Relatlimab, nivolumab, and ipilimumab (HRPO [id number]), last in 05/2022 - MRI 10/16: showed [...] PM CDT): See R sided weakness problem Current Treatment and Therapy Plans IV MAINTENANCE THERAPY PLAN* Plan Start Date:08/11/2021 Plan Provider:Charles Langley MD Linked Problems Primary cancer of right uppe r lobe of lung (HCC)Malignant neoplasm metastatic to brain (HCC) Treatment Medications No medications scheduled. Past Treatment and Therapy Plans Oncology Chemotherapy Treatment Plan Name Start Date Discontinue Date Treatment Medications Discontinue Reason Plan Provider Cycles [id number]- [facility] - Phase 1 - Part 2B Expansion - Relatlimab / Nivolumab / Ipilimumab 0 06/15/2022 INV-[facility] (/ [id number]) ipilimumab IVPB in 25 [id number] ipilimumab (/ [id number])INV -[facility] relatlimab ([id number])/ nivolumab (/ [id number]) 160 mg/480 mg in sodium chloride 0.9% 120 ml IVPB (ANTI-LAG-3) Progression Nate iraheta, MD Charles 15 of 16 cycles started pembrolizumab / pemetrexed / CARBOplatin 21 day cycles - Non-Small Cell Lung 0 01/22/2020 CARBOplatin (PARAPLATIN)p embrolizumab (KEYTRUDA)PEM Etrexed (ALIMTA) Provider Discretion Nate rn, MD Charles Treatment not started Oncology Supportive Care Plan Name Start Date Discontinue Date Treatment Medications Discontinue Reason Plan Provider HYDRATION THERAPY PLAN 08/25/2021 07/17/2023 No medications scheduled. Automatic discontinuation of dormant plans Charles Langley MD Hydration Therapy Plan & Hydration Therapy Plan 09/16/2020 05/19/2021 No medications scheduled. Therapy Complete Charles Langley MD Radiation Treatments * Course [id number]_202203/07/2023 - 03/27/2023 Treatment Period Energy Fraction Dose Fractions Total Dose Plans Planned RIGHT LUNG 03/07/2023 - 03/27/2023 400 15 / 6,000 Reference Points Delivered PTV 03/07/2023 - 03/27/2023 6,000 * Course C1 01/01/2020 - 03/16/2023 Treatment Period Energy Fraction Dose Fractions Total Dose Plans Planned A:Tum1_Lt deloris 01/01/2020 - 03/16/2023 2,000 1 / 2,000 B:Tum2_RTfron 03/16/2023 - 03/16/2023 2,000 1 / 2,000 C:Tum3_LTfron 03/16/2023 - 03/16/2023 2,000 1 / 2,000 D:Tum4_LTfron 03/16/2023 - 03/16/2023 1,800 1 / 1,800 E:Tum5_LTfron 03/16/2023 - 03/16/2023 2,000 1 / 2,000 Reference Points Delivered A:Tum1_Lt inder 01/01/2020 - 03/16/2023 2,000 B:Tum2_RTfrontal 03/16/2023 - 03/16/2023 2,000 C:Tum3_LTfrontal 03/16/2023 - 03/16/2023 2,000 D:Tum4_LTfrontal 03/16/2023 - 03/16/2023 1,800 E:Tum5_LTfrontal 03/16/2023 - 03/16/2023 2,000 Lifetime Dose Tracking * Chemical Lifetime Dose Automatic Entry Manual Entr y Radiation 512 mSv 512 mSv 0 mSv Fluoro Time 0.1 minutes 0.1 minutes 0 minutes DLP 11,034 mGycm 11,034 mGycm 0 mGycm
--- OUTSIDE RECORDS SUMMARY | 2024-09-13 19:28 | XMS_ITS | Referral Summary ---
Author Organization [facility] Address [address] [place] [address] Care Team Providers Care Biomedical Technician Name Role Phone Jovan Dorantes MD Primary Care Provide r Pasha Cason MD Unavailable [phone] Mel Luna NP Unavailable [phone] Charles Langley MD Unavailable Alan Tucker MD Unavailable Encounters Date Type Department Care Team Description 07/17/2024 10:20 AM CDT Office Visit [facility] [address] [place] [address] Floor 5 [place] [address] Charles Langley MD Primary cancer of right upper lobe of lung (HCC) (Primary Dx); Low back pain, unspecified back pain laterality, unspecified chronicity, unspecified whether sciatica present 07/14/2024 4:30 PM CDT Clinical Support [facility] - Lab Collection [address] [facility] Floor 5 [place] [address] Primary cancer of right upper lobe of lung (HCC) 07/14/2024 3:46 PM CDT - 07/14/2024 11:59 PM CDT Hospital Encounter [facility] - [facility] [address] [facility] [address] [place] [address] Malignant neoplasm metastatic to brain (HCC) Discharge Disposition: Discharge to home or self care 07/14/2024 3:30 PM CDT Clinical Support [facility] On[facility] Lab [address] [facility] Floor 5 [place] [address] Primary cancer of right upper lobe of lung (HCC) 07/14/2024 3:45 PM CDT - 07/14/2024 11:59 PM CDT Hospital Encounter [facility] - [place] [address] [facility] Floor 8 [place] [address] Primary cancer of right upper lobe of lung (HCC) Discharge Disposition: Discharge to home or self care from Last 3 Months Allergies Active Allergy Reactions Criticality Noted Date Comments Aspirin Other (See comments) High 11/02/2022 Severe acute liver injury Uulhzyp-Ged-Ayu Reductase Inhibitors Other (See comments) High 11/02/2022 [...] abd ultrasound. - Overread CT a/p at [facility]: Mild periportal edema, which can be seen [...] vessel wall enhancement - Hgb A1C 5.3, PZV958, chol 229, TTE w bubble (EF 63%, [...] 01/01/20. S/p Relatlimab, nivolumab, and ipilimumab (HRPO [id number]), last in 05/2022 - MRI 10/16: showed [...] PM CDT): See R sided weakness problem Immunizations Immunization Administration Dates Next Due Influenza, Quadrivalent, Tatiana l Culture-based MDCK, Antibiotic Free, Intramuscular 03/18/2019 Influenza, Quadrivalent, Spl it, Preservative Free, Intramuscular 03/06/2018 Pfizer SARS-CoV-2 Monovalent Vaccination (12+ Yrs) PURPLE 03/30/2021,08/09/2020,07/18/2020 Social History Tobacco Use Types Packs/Day Years [...] 10/30/2022 How often do you attend chur ch or congregational services? 1 to 4 times per year 10/30/2022 Do you belong to any clubs o r organizations such as baptism groups, unions, fraternal or athletic groups, or [...] place to sleep or slept in a fdc (including now)? 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 Author CCM Chronic Pain Care Plan Chronic Care Management No Fam Clayton, [place] Note: Problem: Chronic Pain Goals: 1. Minimize further functional decline 2. Maximize quality of life 3. Control pain Strategies: - Activity/exercise program recommendation - Conservative stepwise pain medicine strategy with multi-disciplinary approach - Recommend healthy lifestyle strategies and compensatory methods as needed Medical Devices Implanted Type Area Director Of Community Life Device Identifier Shelf Expiration Date Model / Serial / Lot [employer] [id number] Xcela 8fr 1.6mm 1 Lumen Low Profile Power Injectable Fill Suture - [id number] Implanted:Qty: 1 on 04/06/2020 at [facility] [employer] 12/23/2024 [id number] / / [id number] Procedures Procedure Name Priority Date/Time Associated Diagnosis [...] by: Rosanna Tyler M.D. Charles Langley MD IM CT PROCEDURES Final R esult * eGFR [...] of Race in Diagnosing Kidney Disease, JASN 2020). The CKD-EPI equation should not be used for patients with unstable renal function and has not been validated in children and those over 70. Current interpretive data was last reviewed 2021. Blood 07/14/2024 3:40 PM CDT 07/14/2024 4:15 PM CDT us Charles Langley MD LAB BLOOD ORDERABLES Monica rivera Result [facility] Department [place] [address] * Differential, auto (07/14/2024 3:40 PM CDT) Neutrophil abs 3.4 1.5 - 6.5 K/cumm Comment:Testing performed by : [facility], [address] [place] [phone] Lymphocyte abs 1.0 0.8 - 3.3 K/cumm CERNER BJ Comment:Testing performed by : [facility], [address] [place] [phone] Monocyte abs 0.4 0.2 - 0.8 K/cumm CERNER BJ Comment:Testing performed by : [facility], [address] [place] [phone] Eosinophil abs 0.1 0.0 - 0.5 K/cumm CERNER BJ Comment:Testing performed by : [facility], [address] [place] [phone] Basophil abs 0.0 0.0 - 0.1 K/cumm CERNER BJ Comment:Testing performed by : [facility], [address] [place] [phone] Neutrophil pct 68.5 % CERNER [facility] Comment: Interpretive Data Percent cell count reference ranges are not reported, since discordance with absolute values may lead to misinterpretation of CBC data. Current Interpretive Data was last revised on 2017. Testing performed by: [facility], [address] [place] [phone] Lymphocyte pct 21.2 % CRISTOFER REED Comment: Interpretive Data Percent cell count reference ranges are not reported, since discordance with absolute values may lead to misinterpretation of CBC data. Current Interpretive Data was last revised on 2017. Testing performed by: [facility], [address] [place] [phone] Monocyte pct 8.0 % CRISTOFER REED Comment: Interpretive Data Percent cell count reference ranges are not reported, since discordance with absolute values may lead to misinterpretation of CBC data. Current Interpretive Data was last revised on 2017. Testing performed by: [facility], [address] [place] [phone] Eosinophil pct 1.9 % CRISTOFER REED Comment: Interpretive Data Percent cell count reference ranges are not reported, since discordance with absolute values may lead to misinterpretation of CBC data. Current Interpretive Data was last revised on 2017. Testing performed by: [facility], [address] [place] [phone] Basophil pct 0.4 % CRISTOFER REED Comment: Interpretive Data Percent cell count reference ranges are not reported, since discordance with absolute values may lead to misinterpretation of CBC data. Current Interpretive Data was last revised on 2017. Testing performed by: [facility], [address] [place] [phone] Blood 07/14/2024 3:40 PM CDT 07/14/2024 3:41 PM CDT us Charles Langley MD LAB BLOOD ORDERABLES Monica rivera Result [facility] Department [place] [address] * (ABNORMAL) CBC with auto differential (07/14/2024 3:40 PM CDT) WBC 4.9 3.8 - 9.9 K/cumm Comment:Testing performed by : [facility], [address] [place], [place] [phone] Hgb 11.3(L) 11.9 - 15.5 g/dL CERNER BJ Comment:Testing performed by : [facility], [address] [place] [address] Hct 33.4(L) 35.6 - 45.5 % CERNER BJ Comment:Testing performed by : [facility], [address] [place], [place] [phone] Plt 196 150 - 400 K/cumm CERNER BJ Comment:Testing performed by : [facility], [address] [place], [place] [phone] MPV 8.5 6.8 - 10.4 fL CERNER BJ Comment:Testing performed by : [facility], [address] [place], [place] [phone] RBC 3.90 3.90 - 5.20 M/cumm CERNER BJ Comment:Testing performed by : [facility], [address] [place] [address] MCV 85.7 81.3 - 96.4 fL CERNER BJ Comment:Testing performed by : [facility], [address] [place], [place] [phone] MCH 28.9 27.1 - 33.3 pg CERNER BJ Comment:Testing performed by : [facility], [address] [place] [address] MCHC 33.7 32.3 - 35.7 g/dL CERNER BJ Comment:Testing performed by : [facility], [address] [place] [address] RDW CV 14.7 11.1 - 14.9 % CERNER BJ Comment:Testing performed by : [facility], [address] [place] [address] NRBC abs 0.00 0.00 - 0.01 K/cumm CERNER BJ Comment:Testing performed by : [facility], [address] [place] [address], [place] [phone] Blood 07/14/2024 3:40 PM CDT 07/14/2024 3:41 PM CDT us Charles Langley MD LAB BLOOD ORDERABLES Monica rivera Result [facility] Department [place] [address] * (ABNORMAL) Comprehensive metabolic panel (07/14/2024 3:40 PM CDT) Sodium 141 135 - 145 mmol/L Potassium, pl 3.9 3.3 - 4.9 mmol/L [facility] Chloride 106 97 - 110 mmol/L [facility] CO2 26 22 - 32 mmol/L [facility] Anion gap 9 2 - 15 mmol/L [facility] BUN 16 6 - 25 mg/dL [facility] Creatinine 0.97 0.60 - 1.10 mg/dL [facility] Glucose 88 70 - 199 mg/dL [facility] Comment: Interpretive Data Fasting glucose >/= 126 [...] classification and Diagnosis of Diabetes Diabetes Care 202; 46: S19-S40. Current interpretive data was last revised 2022. Calcium 8.7 8.5 - 10.3 mg/dL [facility] Bilirubin, total 0.2 0.1 - 1.2 mg/dL [facility] Protein, pl 6.6 6.5 - 8.5 g/dL [facility] Albumin 4.0 3.5 - 5.0 g/dL [facility] Alk phos 109 40 - 130 Units/L [facility] ALT 6(L) 7 - 45 Units/L [facility] AST 22 10 - 45 Units/L [facility] Blood 07/14/2024 3:40 PM CDT 07/14/2024 3:44 PM CDT us Charles Langley MD LAB BLOOD ORDERABLES Monica l Result Performing Organization Address City/[facility]/ZIP Co de Phone Number [facility] Department [place] [address] * Hepatitis panel, acute (10/28/2022 1:03 AM CDT) Hep A IgM Nonreactive Nonreactive [facility] Hep B core IgM Nonreactive Nonreactive [facility] Hep C Ab Nonreactive Nonreactive [facility] Comment:Antibodies to HCV no t detected. Does NOT exclude the possibility of recent exposure to HCV. Current interpretive data was last revised on 22 HepBsAg Nonreactive Nonreactive [facility] Blood 10/28/2022 1:03 AM CDT 10/28/2022 2:07 AM CDT us Perry Anderson MD LAB MICROBIOLOGY - GENER AL ORDERABLES Final Result Performing Organization Address City/[facility] Co de Phone Number [facility] Department [place] [address] from Last 3 Months or Most Recently Relevant to Health Maintenance Insurance [facility] Advance Directives For more information, please contact: [phone] * Full Code (Latest Code Status on File) Date Activated Date Inactivated Comments 10/27/2022 10:29 PM 11/05/2022 6:20 PM * Full Code Date Activated Date Inactivated Comments 07/26/2022 10:03 PM 08/02/2022 7:32 PM * Full Code Date Activated Date Inactivated Comments 04/06/2020 12:52 PM 04/06/2020 6:52 PM * Full Code Date Activated Date Inactivated Comments 12/21/2019 9:04 AM 12/24/2019 8:22 PM Care Teams Biomedical Technician Relationship Specialty Start Date End Date Jovan Dorantes MD [address] [place] [address] PCP - General 12/21/19 Pasha Cason MD [address] [place] [address] Referring Physician Neurosurgery 12/24/19 eMl Luna NP [address] [facility] [address] [address] Nurse Practitioner Medical Oncology 06/17/20 Charles Langley MD [address] [place] [address] Medical Oncologist/Business Continuity Strategy Director Medical Oncology 07/01/20 Alan Tucker MD [address] [place] [address] Radiation Oncologist Radiation Oncology 11/02/21
--- NOTE | 2024-09-13 20:07 | ED_ITS ---
HPI - Extremity Injury (Lower) General Chief Complaint: Extremity Injury, Lower Stated Complaint: leg pain Time Seen by Provider: 09/13/24 19:27 Source: patient Mode of arrival: ambulatory Limitations: no limitations History of Present Illness HPI Narrative: this is a 59-year-old female that presents with some injury to her left knee after she fell from a small ladder causing pain anterior surface of her left kn ee no other injuries noted. She rates her pain as 4/10 but more painful when she she walks and puts weight. No fever chills no chest pain no shortness of breath. complaint: knee injury Onset (ago): day(s) Injury: Left: knee ( tenderness with palpation) Place: home Severity: mild Severity scale (1-10): 4 Relieving factors: NSAID and immobilization Exacerbating factors: weight bearing and palpation Related Data Home Medications ?Medication ?Instructions ?Recorded ?Confirmed ?Last Taken ?Type escitalopram oxalate 10 mg tablet 10 mg PO DAILY 03/07/22 10/25/22 Unknown History prochlorperazine maleate 10 mg 10 mg PO TID PRN Nausea 03/07/22 10/25/22 Unknown History tablet alprazolam 0.5 mg tablet 0.5 mg PO BID 07/26/22 10/25/22 Unknown History fluticasone propionate 50 50 mcg intranasal DAILY PRN 07/26/22 10/25/22 Unknown History mcg/actuation nasal Congestion spray,suspension prednisone 5 mg tablet 5 mg PO DAILY 07/26/22 10/25/22 Unknown History Allergies Allergy/AdvReac Type Severity Reaction Status Date / Time No Known Allergies Allergy Verified 10/25/22 12:29 Review of Systems Review of Systems: All systems reviewed & are unremarkable except as noted in HPI and below PMFSH Past Medical History Medical History Brain cancer Lung cancer Tobacco abuse Chronic back pain Family History Family History Other Family history normal Social History Social History Smoking packs per day: 1 Smoking cigarettes per day: 20.0 Years smoked: 40 Smoking pack-years: 40.00 Smoking status: Former smoker Smoking end date: 12/20/19 Alcohol intake: never Substance use: never Spiritual care concerns: No Exam Const: General: healthy appearing, no acute distress and alert Nutritional Appearance: well nourished Orientation/consciousness: patient oriented x3 Limitations: no limitations Chest: Chest palpation & inspection: normal inspection of the chest Resp: Effort & Inspection: normal respiratory effort Auscultation: clear to auscultation bilaterally Cardio: Rate: regular rate Rhythm: regular rhythm GI: GI Palp: Yes Soft to palpation Skin: General skin exam: normal color Rashes: no rashes Wounds: no wounds Neuro: General: patient oriented x3, moves all extremities, no meningeal signs and no focal motor deficits Extrem: Other: Tenderness left anterior medial knee with palpation and movement with minimal swelling no bruising. Course Course Emergency Course: X-ray performed shows no acute fractures applied an Obed wrap advised patient to take Tylenol or Motrin as needed. Vital Signs Vital signs: Vital Signs Temperature 36.6 C 09/13/24 19:24 Pulse Rate 68 09/13/24 19:24 Respiratory Rate 16 09/13/24 19:24 Blood Pressure 124/64 09/13/24 19:24 Pulse Oximetry 99 09/13/24 19:24 Oxygen Delivery Room Air 09/13/24 19:24 Temperature 36.6 C 09/13/24 19:24 Pulse Rate 68 09/13/24 19:24 Respiratory Rate 16 09/13/24 19:24 Blood Pressure 124/64 09/13/24 19:24 Pulse Oximetry 99 09/13/24 19:24 Oxygen Delivery Room Air 09/13/24 19:24 Critical Care Time Critical Care Time Critical Care Time: No Discharge Plan Discharge Clinical Impression: Left knee sprain Qualifiers: Encounter type: initial encounter Involved ligament of knee: other ligament Qualified Code(s): S83.8X2A - Sprain of other specified parts of left knee, initial encounter Patient Disposition: Home Condition: Stable Instructions: Antibiotic Form, Knee Sprain (ED) Additional Instructions: advised patient to continue Obed wrap can keep elevated while at rest limit weig ht-bearing as tolerated and take Tylenol or Motrin as needed follow with primary care physician if symptoms persist or worsen. Patient Language: Nauruan Prescriptions: No Action pantoprazole [Protonix] 40 mg tablet,delayed release (DR/EC) 40 mg PO QAM 42 Days Qty: 42 0RF prochlorperazine maleate 10 mg tablet 10 mg PO TID PRN (Reason: Nausea) escitalopram oxalate 10 mg tablet 10 mg PO DAILY albuterol sulfate 90 mcg/actuation HFA aerosol inhaler 2 puff inhalation QID PRN (Reason: shortness of breath or wheezing) Qty: 8.5 0RF prednisone 5 mg tablet 5 mg PO DAILY alprazolam 0.5 mg tablet 0.5 mg PO BID fluticasone propionate 50 mcg/actuation spray,suspension 50 mcg INTRANASAL DAILY PRN (Reason: Congestion) atorvastatin 80 mg Tablet 80 mg PO DAILY Qty: 30 0RF polyethylene glycol 3350 [Miralax] 17 gram Powder In Packet 17 g PO BID PRN (Reason: constipation) Qty: 14 0RF aspirin 325 mg Tablet,Delayed Release (Dr/Ec) 325 mg PO QAM Qty: 30 0RF docusate sodium 100 mg Capsule 100 mg PO Q12H PRN (Reason: Constipation) Qty: 14 0RF Follow-up/Referrals: Jovan Dorantes MD [Primary Care Provider] - Time of Disposition: 20:12
== END 2024-09-13 20:19 | disposition home or self-care (01) ==
PROVIDERS: Emergency Provider Emergency Medicine; PCP Family Medicine
DX: S83.8X2A Sprain of other specified parts of left knee, initial encounter (principal); Z85.841 Personal history of malignant neoplasm of brain; Z85.118 Personal history of other malignant neoplasm of bronchus and lung; Z87.891 Personal history of nicotine dependence; W11.XXXA Fall on and from ladder, initial encounter
CPT/HCPCS: 73562; 99283

== ENCOUNTER 2025-04-08 16:02 | Outpatient (CLI) | payer OTHER, SELFPAY ==
--- OUTSIDE RECORDS SUMMARY | 2025-04-06 12:00 | XMS_ITS | Encounter Summary ---
Author Organization [facility] Healthcare Address [address] [place] [address] Care Team Providers Care Cigar Sorter Name Role Phone Jovan Dorantes MD Primary Care Provide r Pasha Cason MD Unavailable [phone] Mel Luna NP Unavailable Charles Langley MD Unavailable Alan Tucker MD Unavailable Reason for Referral * MRI/CAT/PET Scan (Routine) - Closed Specialty Diagnoses / Procedures Referred By Contac t Referred To Contact Radiology Diagnoses Malignant neoplasm metastatic to brain (HCC) Procedures MRI Brain Tumor W WO Contrast Britt Rojas NP [address] [address] Phone: tel: fax: [facility] [address] [place] [address] Referral ID Status Reason Start Date Expiration Date Visits Re quested Visits Authorized [id number] Closed 03/20/2025 09/15/2025 1 1 E TECHNICIAN Reason for Visit * MRI/CAT/PET Scan (Routine) - Closed Specialty Diagnoses / Procedures Referred By Contac t Referred To Contact Radiology Diagnoses Malignant neoplasm metastatic to brain (HCC) Procedures MRI Brain Tumor W WO Contrast Britt Rojas DEPUTY MANAGER [address] [address] Phone: tel: fax: [facility] [address] [place] [address] Referral ID Status Reason Start Date Expiration Date Visits Re quested Visits Authorized [id number] Closed 03/20/2025 09/15/2025 1 1 Encounter Details Date Type Department Care Team (Latest Contact Info) Description 04/06/2025 12:00 PM VALVE TECHNICIAN - 04/06/2025 11:59 PM VALVE TECHNICIAN Hospital Encounter [facility] Radiology at [facility] [address] [place] [address] Malignant neoplasm metastatic to brain (HCC) Discharge Disposition: Discharge to home or self care Social History Tobacco Use Types Packs/Day Years Used Date Smoking Tobacco: Former Cigarettes 2 40 0 12/1978 - 12/2018 Passive Smoke Exposure: Past Smokeless Tobacco: Never Alcohol Use Standard Drinks/Week Comments Never 0 (1 standard drink = 0.6 oz pur e alcohol) Social Connection and Isolation Panel Answer Date Recorded In a typical week, how many times do you talk on the phone with family, friends, or neighbors? More than three times a week 10/30/2022 How often do you get togethe r with friends or relatives? More than three times a week 10/30/2022 How often do you attend chur ch or hinduism services? 1 to 4 times per year 10/30/2022 Do you belong to any clubs o r organizations such as evangelical groups, unions, fraternal or athletic groups, or school groups? No 10/30/2022 How often do you attend meet ings of the clubs or organizations you belong to? Never 10/30/2022 Are you , , di vorced, , never , or living with a partner? 10/30/2022 Overall Financial Resource Strain (CARDIA) Answe r Date Recorded How hard is it for you to pa y for the very basics like food, housing, medical care, and heating? Not hard at all 10/30/2022 PHQ-2 Answer Date Recorded PHQ-2 Total Score 0 10/30/2022 PRAPARE - Transportation Answer Date Re corded [...] place to sleep or slept in a [place] facility (including now)? No 10/30/2022 AUDIT-C Answer Date Recorded Q1: How often do you have a drink containing alcohol? Never 03/30/2025 Q2: How many drinks containi ng alcohol do you have on a typical day when you are drinking? Patient does not drink Q3: How often do you have si x or more drinks on one occasion? Never 03/30/2025 Hunger Vital Sign Answer Date Recorded Within the past 12 months, y ou worried that your food would run out before you got the money to buy more. Never true 03/30/20 25 Within the past 12 months, t he food you bought just didn't last and you didn't have money to get more. 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 90 tablet 1 5 baclofen (LIORESAL) 10 mg tablet TAKE 1 TABLET BY MOUTH EVERY DAY AT NIGHT 30 tablet 1 5 clopidogreL (PLAVIX) 75 mg tabletIndications: Cerebrovascular accident (CVA), unspecified mechanism (HCC) Take 1 tablet (75 mg total) by mouth daily 30 tablet 11 5 03/11/20 26 ergocalciferol (VITAMIN D) 50,000 unit capsule TAKE 1 CAPSULE BY MOUTH ONE TIME PER WEEK 4 capsule 2 4 escitalopram (LEXAPRO) 10 mg tablet TAKE 1 TABLET BY MOUTH EVERY DAY 30 tablet 2 5 ezetimibe (ZETIA) 10 mg tabletIndications: Mixed hyperlipidemia TAKE 1 TABLET BY MOUTH EVERY DAY 90 tablet 3 5 fluticasone propionate (FLONASE) 50 mcg/actuation nasal spray SPRAY 1 SPRAY INTO EACH NOSTRIL EVERY DAY 16 mL 3 5 gabapentin (NEURONTIN) 300 mg capsuleIndications :Neuropathic pain TAKE 1 CAPSULE BY MOUTH THREE TIMES A DAY 90 capsule 2 5 lidocaine-prilocai ne creamIndications:A dministration of Local Anesthesia APPLY TOPICALLY NEEDED FOR PAIN APPLY TO PORT SITE 60 MINUTES PRIOR TO EACH USE, COVER WITH PLASTIC WRAP. 30 g 2 2 ondansetron (ZOFRAN) 8 mg tabletIndications: Primary cancer of right upper lobe of lung (HCC),Persons encountering health services in other specified circumstances Take 1 tablet (8 mg total) by mouth every 8 (eight) hours as needed for nausea or vomiting Use if prochlorperazine does not stop nausea 24 tablet 3 1 oxyBUTYnin (DITROPAN) 5 mg tablet Take 1 tablet (5 mg total) by mouth 2 (two) times a day [address] (PROTONIX) 40 mg EC tablet TAKE 1 TABLET BY MOUTH EVERY DAY 30 tablet 3 5 prochlorperazine (COMPAZINE) 10 mg tabletIndications: Primary cancer of right upper lobe of lung (HCC),Persons encountering health services in other specified circumstances TAKE 1 TABLET BY MOUTH EVERY 6 HOURS NEEDED FOR NAUSEA/VOMITING - USE 1ST 120 tablet 3 3 triamcinolone (KENALOG) 0.1 % ointment Apply topically 2 (two) times a day 30 g 1 5 baclofen (LIORESAL) 10 mg tablet TAKE 1 TABLET BY MOUTH EVERY DAY AT NIGHT 30 tablet 1 5 04/07/20 25 fluticasone propionate (FLONASE) 50 mcg/actuation nasal spray SPRAY 1 SPRAY INTO EACH NOSTRIL EVERY DAY 16 mL 3 5 04/07/20 25 documented as of this encounter Discharge Disposition Disposition Code Departure Means Destination Discharge to home or self care documented in this encounter Plan of Treatment Not on file documented as of this encounter Goals Goal Patient Goal Type Associated Problems Recent Progress Patient-Stated? Author CCM Chronic Pain Care Plan Chronic Care Management Fam Carl RN Note: Problem: Chronic Pain Goals: 1. Minimize further functional decline 2. Maximize quality of life 3. Control pain Strategies: - Activity/exercise program recommendation - Conservative stepwise pain medicine strategy with multi-disciplinary approach - Recommend healthy lifestyle strategies and compensatory methods as needed documented as of this encounter Procedures Procedure Name Priority Date/Time Associated Diagnosis Comments MRI BRAIN TUMOR W WO CONTRAST Schedule Routine, Read Routine (OP Routine) 04/06/2025 1:13 PM VALVE TECHNICIAN Malignant neoplasm metastatic to brain (HCC) POCT CREATININE - DEVICE Routine 04/06/2025 12:16 PM VALVE TECHNICIAN documented in this encounter Results * MRI Brain Tumor W WO Contrast (04/06/2025 1:13 PM VALVE TECHNICIAN) Anatomical Region Laterality Modality Head and Neck N/A Magnetic Resonan ce 04/06/2025 4:27 PM VALVE TECHNICIAN Impressions 04/06/2025 4:37 PM VALVE TECHNICIAN 1. Unchanged small enhancing lesion in the left parietal lobe. No new enhancing intracranial lesion. 2. Slight interval increase in size and conspicuity of vague enhancement in the right caudate. Dictated by: Charles Husain MD The radiology attending physician has personally reviewed this study, and had reviewed and/or edited this written report and agrees with it. Electronically signed by: Duke Parnell M.D. Narrative 04/06/2025 4:37 PM VALVE TECHNICIAN EXAMINATION: Magnetic resonance imaging (MRI) of the brain and brainstem without and with contrast HISTORY: Metastatic lung cancer with intracranial metastases status post gamma knife to 5 lesions in 2019 currently on observation. TECHNIQUE: Multiplanar multi-weighted MRI of the brain and brainstem was performed without and with intravenous contrast using the brain tumor protocol. This included high-resolution 3D T1-weighted images without and with intravenous contrast and dynamic susceptibility contrast data for perfusion analysis. Contrast information: 10 mL Gadoterate Meglumine IV COMPARISON: Brain MRI 01/06/2025, 10/06/2024, and 07/14/2024 FINDINGS: No significant change in size of a left parietal subcortical enhancing lesion measuring up to 5 mm (series 43 image 34). Similar surrounding T2/FLAIR hyperintensity. Slight increase in size and conspicuity of 6 mm area of enhancement involving the right caudate (series 44 image 123 and series 26 image 17). Unchanged focus of susceptibility in the peripheral left frontal lobe with surrounding gliosis, likely reflecting posttreatment changes. No new abnormal intracranial enhancement. The superior sagittal sinus demonstrates normal venous flow. The corpus callosum is normal in shape and signal intensity. The posterior fossa is unremarkable. The pituitary and sella are normal. The brainstem and craniocervical junction are unremarkable. Mild periventricular and subcortical white matter T2/FLAIR hyperintensities, which are nonspecific, however most commonly reflect sequela of chronic microvascular ischemic disease. Chronic bilateral basal ganglia lacunar infarcts. Diffusion weighted images reveal no hyperintensities to suggest acute cerebral infarction. The ventricles are normal in size and position without evidence of hydrocephalus. The paranasal sinuses are normal. Trace left mastoid fluid. The orbits appear normal. Normal flow voids are demonstrated in the carotid arteries and basilar artery. Procedure Note Duke Parnell MD - 04/06/2025 EXAMINATION: Magnetic resonance imaging (MRI) of the brain and brainstem without and with contrast HISTORY: Metastatic lung cancer with intracranial metastases status post gamma knife to 5 lesions in 2019 currently on observation. TECHNIQUE: Multiplanar multi-weighted MRI of the brain and brainstem was performed without and with intravenous contrast using the brain tumor protocol. This included high-resolution 3D T1-weighted images without and with intravenous contrast and dynamic susceptibility contrast data for perfusion analysis. Contrast information: 10 mL Gadoterate Meglumine IV COMPARISON: Brain MRI 01/06/2025, 10/06/2024, and 07/14/2024 FINDINGS: No significant change in size of a left parietal subcortical enhancing lesion measuring up to 5 mm (series 43 image 34). Similar surrounding T2/FLAIR hyperintensity. Slight increase in size and conspicuity of 6 mm area of enhancement involving the right caudate (series 44 image 123 and series 26 image 17). Unchanged focus of susceptibility in the peripheral left frontal lobe with surrounding gliosis, likely reflecting posttreatment changes. No new abnormal intracranial enhancement. The superior sagittal sinus demonstrates normal venous flow. The corpus callosum is normal in shape and signal intensity. The posterior fossa is unremarkable. The pituitary and sella are normal. The brainstem and craniocervical junction are unremarkable. Mild periventricular and subcortical white matter T2/FLAIR hyperintensities, which are nonspecific, however most commonly reflect sequela of chronic microvascular ischemic disease. Chronic bilateral basal ganglia lacunar infarcts. Diffusion weighted images reveal no hyperintensities to suggest acute cerebral infarction. The ventricles are normal in size and position without evidence of hydrocephalus. The paranasal sinuses are normal. Trace left mastoid fluid. The orbits appear normal. Normal flow voids are demonstrated in the carotid arteries and basilar artery. IMPRESSION: 1. Unchanged small enhancing lesion in the left parietal lobe. No new enhancing intracranial lesion. 2. Slight interval increase in size and conspicuity of vague enhancement in the right caudate. Dictated by: Charles Husain MD The radiology attending physician has personally reviewed this study, and had reviewed and/or edited this written report and agrees with it. Electronically signed by: Duke Parnell M.D. Britt Rojas NP IMG MRI PROCEDURES Final Resu lt * POCT creatinine (04/06/2025 12:16 PM VALVE TECHNICIAN) Creatinine POC 0.9 0.6 - 1.1 mg/dL Blood 04/06/2025 12:1 6 PM VALVE TECHNICIAN 04/06/2025 12:16 PM VALVE TECHNICIAN Jovan Dorantes MD LAB POCT ORDERABLES - DEVICE Final Result [facility] Department [place] [address] documented in this encounter Visit Diagnoses Diagnosis Malignant neoplasm metastatic to brain (HCC) documented in this encounter Administered Medications Inactive Administered Medications - up to 3 most recent administrations Medication Order MAR Action Action Date Dose Rate Site gadoterate meglumine injection 10 mL 10 mL, intravenous, Once in imaging, contrast, Starting on Sun04/06/25 at 1238, For 1 dose Contrast Given 04/06/2025 12:38 PM VALVE TECHNICIAN 10 mL sodium chloride 0.9% flush 125 mL 125 mL, intravenous, Once in imaging, line care, Starting on Sun04/06/25 at 1238, For 1 dose Given 04/06/2025 12:39 PM VALVE TECHNICIAN 125 mL documented in this encounter Care Teams Cigar Sorter Relationship Specialty Start Date End Date Jovan Dorantes MD [address] [place] [address] PCP - General 12/21/19 Pasha Cason MD [address] [place] [address] Referring Physician Neurosurgery 12/24/19 Mel Luna NP [address] [facility] [address] [place] [address] Nurse Practitioner Medical Oncology 06/17/20 Charles Langley MD [address] [place] [address] Medical Oncologist/Core Paster Medical Oncology 07/01/20 Alan Tucker MD [address] [place] [address] Radiation Oncologist Radiation Oncology 11/02/21 documented as of this encounter
--- OUTSIDE RECORDS SUMMARY | 2025-04-06 12:00 | XMS_ITS | Encounter Summary ---
Author Organization [facility] Healthcare Address [address] [place] [address] Care Team Providers Care Sugar Cane Grower Name Role Phone Jovan Dorantes MD Primary Care Provide r Pasha Cason MD Unavailable [phone] Mel Luna NP Unavailable Charles Langley MD Unavailable Alan Tucker MD Unavailable Reason for Referral * MRI/CAT/PET Scan (Routine) - Closed Specialty Diagnoses / Procedures Referred By Danilo gaxiola Referred To Contact Radiology Diagnoses Primary cancer of right upper lobe of lung (HCC) Procedures CT Chest Abdomen Pelvis W Contrast Charles Langley MD [address] [place] [address] Phone: tel: fax: [facility] Referral ID Status Reason Start Date Expiration Date Visits Re quested Visits Authorized [id number] Closed 01/15/2025 2026 1 1 DRY MACHINE TENDER Reason for Visit * MRI/CAT/PET Scan (Routine) - Closed Specialty Diagnoses / Procedures Referred By Danilo gaxiola Referred To Contact Radiology Diagnoses Primary cancer of right upper lobe of lung (HCC) Procedures CT Chest Abdomen Pelvis W Contrast Charles Langley MD [address] [place] [address] Phone: tel: fax: [facility] Referral ID Status Reason Start Date Expiration Date Visits Re quested Visits Authorized [id number] Closed 01/15/2025 2026 1 1 Encounter Details Date Type Department Care Team (Latest Contact Info) Description 04/06/2025 12:00 PM LAUNDRY MACHINE TENDER - 04/06/2025 11:59 PM LAUNDRY MACHINE TENDER Hospital Encounter [facility] Radiology at [facility] [address] [place] [address] Primary cancer of right upper lobe of [...] often do you attend chur ch or buddhist services? 1 to 4 times per year 10/30/2022 Do you belong to any clubs o r organizations such as gnosticist groups, unions, fraternal or athletic groups, or [...] place to sleep or slept in a long term (including now)? 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 Stable posttreatment changes in the right upper lobe. 2. Ill-defined consolidative opacities with tree-in-bud nodularity predominantly in the left lower lobe, favored to be infectious or related to aspiration. Attention on follow-up. 3. No evidence of metastatic disease in the abdomen or pelvis. Dictated by: Rc Kelly M.D. The radiology attending physician has personally reviewed this study, and had reviewed and/or edited this written report and agrees with it. Electronically signed by: Rick Werner M.D. 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 COMPARISON: 01/01/2025, 10/06/2024 FINDINGS: No supraclavicular, axillary or mediastinal lymphadenopathy. The heart is normal size. No pericardial effusion. Right internal jugular approach central venous catheter tip terminates at the superior cavoatrial junction. No significant change in right upper lobe scarring. Ill-defined consolidative opacities with mild tree-in-bud nodularity predominantly in the left lower lobe. Similar right hilar lymph node since October 2024, measuring up to 1.4 cm. Bilateral upper lobe predominant emphysema. No pleural effusion or pneumothorax. The liver is normal. Previously described segment 5 lesion is not seen. No intrahepatic biliary duct dilation. The gallbladder, spleen, pancreas, and adrenal glands are normal. The kidneys enhance symmetrically without hydronephrosis. The bladder is normal. Colonic diverticulosis without evidence of diverticulitis. The colon is normal in course and caliber. The appendix is normal. No ascites or pneumoperitoneum. No pelvic or abdominal lymphadenopathy. No suspicious osseous lesion. 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 COMPARISON: 01/01/2025, 10/06/2024 FINDINGS: No supraclavicular, axillary or mediastinal lymphadenopathy. The heart is normal size. No pericardial effusion. Right internal jugular approach central venous catheter tip terminates at the superior cavoatrial junction. No significant change in right upper lobe scarring. Ill-defined consolidative opacities with mild tree-in-bud nodularity predominantly in the left lower lobe. Similar right hilar lymph node since October 2024, measuring up to 1.4 cm. Bilateral upper lobe predominant emphysema. No pleural effusion or pneumothorax. The liver is normal. Previously described segment 5 lesion is not seen. No intrahepatic biliary duct dilation. The gallbladder, spleen, pancreas, and adrenal glands are normal. The kidneys enhance symmetrically without hydronephrosis. The bladder is normal. Colonic diverticulosis without evidence of diverticulitis. The colon is normal in course and caliber. The appendix is normal. No ascites or pneumoperitoneum. No pelvic or abdominal lymphadenopathy. No suspicious osseous lesion. IMPRESSION: 1. Stable posttreatment changes in the right upper lobe. 2. Ill-defined consolidative opacities with tree-in-bud nodularity predominantly in the left lower lobe, favored to be infectious or related to aspiration. Attention on follow-up. 3. No evidence of metastatic disease in the abdomen or pelvis. Dictated by: Rc Kelly M.D. The radiology attending physician has personally reviewed this study, and had reviewed and/or edited this written report and agrees with it. Electronically signed by: Rick Werner M.D. us Charles Langley MD IMG CT PROCEDURES Final R esult documented in this encounter Visit Diagnoses Diagnosis Primary cancer of right upper lobe of lung (HCC) documented in this encounter Administered Medications Inactive Administered Medications - up to 3 most recent administrations Medication Order MAR Action Action Date Dose Rate Site heparin 100 unit/mL injection 500 Units 500 Units (5 mL), intra-catheter, Once, On Sun04/06/25 at 1300, For 1 dose Given 04/06/2025 1:22 PM LAUNDRY MACHINE TENDER 500 Units ioversoL (OPTIRAY 350) syringe 70 mL 70 mL, intravenous, Once in imaging, contrast, Starting on Sun04/06/25 at 1310, For 1 dose Contrast Given 04/06/2025 1:11 PM LAUNDRY MACHINE TENDER 70 mL documented in this encounter Care Teams Sugar Cane Grower Relationship Specialty Start Date End Date Jovan Dorantes MD [address] [place] [address] PCP - General 12/21/19 Pasha Cason MD [address] [place] [address] Referring Physician Neurosurgery 12/24/19 Mel Luna NP [address] [facility] [address] [place] [address] Nurse Practitioner Medical Oncology 06/17/20 Charles Langley MD [address] [place] [address] Medical Oncologist/Pathologist Medical Oncology 07/01/20 Alan Tucker MD [address] [place] [address] Radiation Oncologist Radiation Oncology 11/02/21 documented as of this encounter
--- OUTSIDE RECORDS SUMMARY | 2025-04-07 12:45 | XMS_ITS | Encounter Summary ---
Author Organization [facility] Healthcare Address [address] [place] [address] Care Team Providers Care Harbour Master Name Role Phone Jovan Dorantes MD Primary Care Provide r Pasha Cason MD Unavailable Mel Luna NP Unavailable Charles Langley MD Unavailable Aaln Tucker MD Unavailable Reason for Referral * MRI/CAT/PET Scan (Routine) - Pending Review Specialty Diagnoses / Procedures Referred By Contac t Referred To Contact Radiology Diagnoses Malignant neoplasm metastatic to brain (HCC) Procedures MRI Brain Tumor W WO Contrast Britt Rojas NP [address] [facility] [address] [place] [address] Phone: tel: fax: [facility] Referral ID Status Reason Start Date Expiration Date V isits Requested Visits Authorized [id number] Pending Review 04/07/2025 05/07/2026 1 1 RATORY TECHNOLOGIST Encounter Details Date Type Department Care Team (Late st Contact Info) Description 04/07/2025 12:45 PM LABORATORY TECHNOLOGIST Telemedicine [facility] Radiation Oncology at [facility] [address] [place] [address] Britt Rojas NP [address] [facility] [address] [place] [address] Malignant neoplasm metastatic to brain (HCC) (Primary Dx) Social History Tobacco Use Types Packs/Day Years [...] often do you attend chur ch or moravian services? 1 to 4 times per year 10/30/2022 Do you belong to any clubs o r organizations such as zoroastrianism groups, unions, fraternal or athletic groups, or [...] Industry Job Start Date Job End Date [employer] Work[employer] Not on file Not on file Not on file documented as of this encounter Progress Notes * Britt Rojas, VOLUNTEER SERVICES SUPERVISOR - 04/07/2025 12:45 PM CST Images from the original note were not included. TELEPHONE CALL Patient is a 60 y.o. 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 Completed Hypofractionated IMRT 60/15 fx to RUL nodule 03/27/23. Patient was called today to discuss recent imaging results. MRI stable. Discussed with Dr. Kelly. No concerns regarding vague enhancement in the right caudate will continue to monitor Patient notes no new or worsening symptoms. Feeling good. Denies seizures, headaches, vision changes, n/v and changes in balance. We discussed imaging and will follow up in 3mo with MRI Imaging: MRI Brain Tumor W WO Contrast Result Date: 04/06/2025 Narrative: EXAMINATION: Magnetic resonance imaging (MRI) of the brain and brainstem without and with contrast HISTORY: Metastatic lung cancer with intracranial metastases status post gamma knife to 5lesions in 2019 currently on observation. TECHNIQUE: Multiplanar multi-weighted MRI of the brain and brainstem was performed without and with intravenous contrast using the brain tumor protocol. Thisincluded high-resolution 3D T1-weighted images without and with [...] shape and signal intensity. The posterior fossa isunremarkable. The pituitary and sella are normal. The brainstem and craniocervical junction are unre markable. Mild periventricular and subcortical white matter T2/FLAIR hyperintensities, which are nonspecific, however most commonly reflect sequela of chronic microvascular ischemic disease. Chronic bilateral basal ganglia lacunar infarcts. Diffusion weighted images reveal no hyperintensities to sug gest acute cerebral infarction. The ventricles are normal in size and position without evidence of hydrocephalus. The paranasal sinuses are normal. Trace left mastoid fluid. The orbits appear normal.Normal flow voids are demonstrated in the carotid arteries and basilar artery. Impression: 1. Unchanged small enhancing lesion in the left parietal lobe. No new enhancing intracranial lesion. 2. Slight interval increase in size and conspicuity of vague enhancement in the right caudate. Dictated by: Charles Husain MD The radiology attending physician has personally reviewed this study, and had reviewed and/or edited this written report and agrees with it. Electronically signed by: Duke Parnell M.D. CT Chest Abdomen Pelvis W Contrast Result Date: 04/06/2025 Narrative: EXAMINATION: CT CHEST ABDOMEN PELVIS W CONTRAST [...] hilar lymph node since October 2024, measuring upto 1.4 cm. Bilateral upper lobe predominant emphysema. [...] or abdominal lymphadenopathy. No suspicious osseous lesion. Impression: 1. Stable posttreatment changes in the right upper lobe. 2. Ill- defined consolidative opacities with tree-in-bud nodularity predominantly in [...] it. Electronically signed by: Rick Werner M.D. I personally reviewed the imaging. Britt Rojas MSN, RN, AGNP-C Radiation Oncology Nurse Practitioner [employer] RATORY TECHNOLOGIST documented in this encounter Plan of Treatment Scheduled Orders Name Type Priority Associated Diagnoses Orde r Schedule MRI Brain Tumor W WO Contrast Imaging Schedule Routine, Read Routine (OP Routine) Malignant neoplasm metastatic to brain (HCC) Expected: 07/03/2025, Expires: 04/07/2026 documented as of this encounter Goals Goal Patient Goal Type Associated Problems Recent Progress Patient-Stated? Author CCM Chronic Pain Care Plan Chronic Care Management Fam Carl, TEMITOPE Note: Problem: Chronic Pain Goals: 1. Minimize further functional decline 2. Maximize quality of life 3. Control pain Strategies: - Activity/exercise program recommendation - Conservative stepwise pain medicine strategy with multi-disciplinary approach - Recommend healthy lifestyle strategies and compensatory methods as needed documented as of this encounter Visit Diagnoses Diagnosis Malignant neoplasm metastatic to brain (HCC)- Primary documented in this encounter Orders Appointment Requests Count Last Ordered Date Fi rst Ordered Date ONCBCN RAD ONC CLINIC APPOINTMENT REQUEST 1 04/07/2025 documented in this encounter Care Teams Harbour Master Relationship Specialty Start Date End Date Jovan Dorantes MD [address] [place] [address] PCP - General 12/21/19 Pasha Cason MD [address] [place] [address] Referring Physician Neurosurgery 12/24/19 Mel Luna NP [address] [facility] [address] [place] [address] Nurse Practitioner Medical Oncology 06/17/20 Charles Langley MD [address] [place] [address] Medical Oncologist/Package Line Relief Operator Medical Oncology 07/01/20 Alan Tucker MD [address] [place] [address] Radiation Oncologist Radiation Oncology 11/02/21 documented as of this encounter
[2025-04-08 16:50] LABS: Influenza A QL RT-PCR Negative (Negative); Influenza B QL RT-PCR Negative (Negative); RSV RNA, RT-PCR Negative (Negative); SARS-CoV-2 RNA PCR Negative (Negative)
--- OUTSIDE RECORDS SUMMARY | 2025-04-08 17:05 | XMS_ITS ---
Author Organization [facility] Address [address] [place] [address] Care Team Providers Care Office Administration Name Role Phone Jovan Dorantes MD Primary Care Provide r Pasha Cason MD Unavailable [phone] Mel Luna NP Unavailable [phone] Charles Langley MD Unavailable Alan Tucker MD [...] abd ultrasound. - Overread CT a/p at [facility]: Mild periportal edema, which can [...] vessel wall enhancement - Hgb A1C 5.3, MEG639, chol 229, TTE w bubble (EF 63%, [...] 01/01/20. S/p Relatlimab, nivolumab, and ipilimumab (HRPO [id number]), last in 05/2022 - MRI 10/16: showed [...] Treatment Medications Discontinue Reason Plan Provider Cycles [id number]- [facility] - Phase 1 - Part 2B Expansion - Relatlimab / Nivolumab / Ipilimumab 0 06/15/2022 [facility] (/ [id number]) ipilimumab IVPB [facility] ipilimumab (/ [id number])[facility] relatlimab ([id number])/ nivolumab (/ [id number]) 160 mg/480 mg in sodium chloride 0.9% 120 ml IVPB (ANTI-LAG-3) Progression Nate iraheta, MD Charles 15 of 16 cycles started pembrolizumab / pemetrexed / CARBOplatin 21 day cycles - Non-Small Cell Lung 0 01/22/2020 CARBOplatin (PARAPLATIN)p embrolizumab (KEYTRUDA)PEM Etrexed (ALIMTA) Provider Discretion Nate iraheta, MD Charles Treatment not started Oncology Supportive Care Therapy Plan Plan Name Start Date Discontinue Date Treatment [...] 0.1 minutes 0.1 minutes 0 minutes DLP 12,466 mGycm 12,466 mGycm 0 mGycm
--- OUTSIDE RECORDS SUMMARY | 2025-04-08 17:05 | XMS_ITS | Clinical Summary ---
Author Organization [facility] Address [address] [place] [address] Care Team Providers Care Assistant Project Manager Name Role Phone Jovan Dorantes MD Primary Care Provide r Pasha Cason MD Unavailable Mel Luna NP Unavailable [phone] Charles Langley MD Unavailable [phone] Alan Tucker MD Unavailable Allergies Active Allergy Reactions Criticality Noted Date Comments Aspirin Other (See comments) High 11/02/2022 Severe acute liver injury Kumqbtg-Duy-Yef Reductase Inhibitors Other (See comments) High 11/02/2022 [...] COVER WITH PLASTIC WRAP. 30 g 2 12/14/ 022 Active prochlorperazine (COMPAZINE) 10 mg tabletIndication s:Primary cancer of right upper lobe of lung (HCC),Persons encountering health services in other specified circumstances TAKE 1 TABLET BY MOUTH EVERY 6 HOURS NEEDED FOR NAUSEA/VOMITING - USE 1ST 120 tablet 3 023 Active ergocalciferol (VITAMIN D) 50,000 unit capsule TAKE 1 CAPSULE BY MOUTH ONE TIME PER WEEK 4 capsule 2 024 Active gabapentin (NEURONTIN) 300 mg capsuleIndicatio ns:Neuropathic pain TAKE 1 CAPSULE BY MOUTH THREE TIMES A DAY 90 capsule [address] (PROTONIX) 40 mg EC tablet TAKE 1 TABLET BY MOUTH EVERY DAY 30 tablet 3 025 Active oxyBUTYnin (DITROPAN) 5 mg tablet Take 1 tablet (5 mg total) by mouth 2 (two) times a day 025 Active triamcinolone (KENALOG) 0.1 % ointment Apply topically 2 (two) times a day 30 g 1 025 Active ALPRAZolam (XANAX) 0.5 mg tablet TAKE 1 TABLET (0.5 MG TOTAL) BY MOUTH 3 (THREE) TIMES A DAY NEEDED FOR ANXIETY. 90 tablet 1 025 Active albuterol HFA (PROVENTIL HFA,VENTOLIN HFA,PROAIR HFA) 90 mcg/actuation inhalerIndicatio ns:Primary cancer of right upper lobe of lung (HCC) INHALE 2 PUFFS EVERY 6 HOURS NEEDED FOR WHEEZING 8.5 each 3 025 Active ezetimibe (ZETIA) 10 mg tabletIndication s:Mixed hyperlipidemia TAKE 1 TABLET BY MOUTH EVERY DAY 90 tablet 3 025 Active escitalopram (LEXAPRO) 10 mg tablet TAKE 1 TABLET BY MOUTH EVERY DAY 30 tablet 2 025 Active clopidogreL (PLAVIX) 75 mg tabletIndication s:Cerebrovascula r accident (CVA), unspecified mechanism (HCC) Take 1 tablet (75 mg total) by mouth daily 30 tablet 11 025 03/11 Active baclofen (LIORESAL) 10 mg tablet TAKE 1 TABLET BY MOUTH EVERY DAY AT NIGHT 30 tablet 1 025 Active fluticasone propionate (FLONASE) 50 mcg/actuation nasal spray SPRAY 1 SPRAY INTO EACH NOSTRIL EVERY DAY 16 mL 3 025 Active folic acid (FOLVITE) 1 mg tabletIndication s:Persons encountering health services in other specified circumstances,Pr imary cancer of right upper lobe of lung (HCC) Take 1 tablet by mouth daily starting 7 days before the first treatment and continuing until 21 days after the last pemetrexed treatment 30 tablet 5 020 01/21 Discontinued clopidogreL (PLAVIX) 75 mg tabletIndication s:Cerebrovascula r accident (CVA), unspecified mechanism (HCC) Take 1 tablet (75 mg total) by mouth daily 90 tablet 3 024 03/11 Discontinued( Reorder) fluticasone propionate (FLONASE) 50 mcg/actuation nasal spray SPRAY 1 SPRAY INTO EACH NOSTRIL EVERY DAY 16 mL 3 025 04/07 Discontinued baclofen (LIORESAL) 10 mg tablet TAKE 1 TABLET BY MOUTH EVERY DAY AT NIGHT 30 tablet 1 025 04/07 Discontinued Active Problems Problem Noted Date Diagnosed Date [...] abd ultrasound. - Overread CT a/p at [facility]: Mild periportal edema, which can be seen [...] vessel wall enhancement - Hgb A1C 5.3, VRS817, chol 229, TTE w bubble (EF 63%, [...] 01/01/20. S/p Relatlimab, nivolumab, and ipilimumab (HRPO [id number]), last in 05/2022 - MRI 10/16: showed [...] Encounters Date Type Department Care Team Description 04/07/2025 12:45 PM EXTRUSION MANAGER Telemedicine [facility] Radiation Oncology at [address] [address] Britt Rojas NP Malignant neoplasm metastatic to brain (HCC) (Primary Dx) 04/06/2025 12:00 PM EXTRUSION MANAGER - 04/06/2025 11:59 PM EXTRUSION MANAGER Hospital Encounter [facility] Radiology at [facility] [address] [place] [id number] Primary cancer of right upper lobe of lung (HCC) Discharge Disposition: Discharge to home or self care 04/06/2025 12:00 PM EXTRUSION MANAGER - 04/06/2025 11:59 PM EXTRUSION MANAGER Hospital Encounter [facility] Radiology at [facility] [address] [place] [address] Malignant neoplasm metastatic to brain (HCC) Discharge Disposition: Discharge to home or self care 04/06/2025 11:30 AM EXTRUSION MANAGER Clinical Support [address] [address] Primary cancer of right upper lobe of lung (HCC) 03/30/2025 3:00 PM EXTRUSION MANAGER [facility] [address] [place] [address] 4th Floor [address] [place] [address] Fazal Villalta MD Persons encountering health services in other specified circumstances (Primary Dx) 03/11/2025 Orders Only [facility] Medicine Ophthalmology [address] [facility] 6th [place] [phone] Fazal Villalta MD Cerebrovascular accident (CVA), unspecified mechanism (HCC) 03/09/2025 Telephone [facility] [address] [facility] 4th Floor [address] [place] [phone] Cady Diamond Med Refill 03/09/2025 Telephone [facility] [address] [facility] 6th Floor [address] [place] [phone] Brandy Odonnell MA 01/15/2025 10:00 AM CDT Office Visit [facility] Medicine Oncology [address] [facility] Floor 5 [place] [address] Charles Langley MD Primary cancer of right upper lobe of lung (HCC) (Primary Dx) 01/12/2025 Orders Only [facility] Medicine Oncology [address] [place] [address] Margaret Childress RN Primary cancer of right upper lobe of lung (HCC) (Primary Dx) from Last 3 Months Immunizations Immunization Administration [...] multiple vascular territories (HCC) COPD (chronic obstructive pulmonary disease) RSV (respiratory syncytial virus infection) Stroke (cerebrum) 07/2022 slight right s ided weakness Brain cancer (HCC) Low back pain [...] often do you attend chur ch or muslim services? 1 to 4 times per year 10/30/2022 Do you belong to any clubs o r organizations such as voodoo groups, unions, fraternal or athletic groups, or [...] in a fdc (including now)? 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 on file Not on file Not on file Last Filed Vital Signs Vital Sign Reading Time Taken Comments Blood Pressure 127/78 03/30/2025 2:34 PM EXTRUSION MANAGER Pulse 58 03/30/2025 2:34 PM EXTRUSION MANAGER Temperature 36.5 C (97.7 F) 03/30/2025 2:34 PM EXTRUSION MANAGER Respiratory Rate 18 03/30/2025 2:34 PM EXTRUSION MANAGER Oxygen Saturation 98% 01/15/2025 10:01 AM CDT Inhaled Oxygen Concentration - - Weight 55.8 kg (123 lb) 04/06/2025 12:04 PM EXTRUSION MANAGER Height 157.5 cm (5' 2) 04/06/2025 12:04 PM EXTRUSION MANAGER Body Mass Index 22.5 04/06/2025 12:04 PM EXTRUSION MANAGER Plan of Treatment Health Maintenance Due Date Last Done Comments Breast Cancer Screening-Mammogram 1965 Cervical Cancer Screening 1963 Colon Cancer Screening-Colonoscopy 1963 DTaP/Tdap/Td Vaccine (1 - Tdap) 1974 Hepatitis B Screening 1981 Regular Well Visit/Exam 18-64 1981 Pneumococcal vaccine <65 (1 of 2 - PCV) 1982 Zoster Vaccine (1 of 2) 1982 Depression Screening 10/28/2023 10/27/2022, 07/27/19 Covid-19 Vaccine (4 - season) 2025 03/30/2021, 08/09/2020, 07/18/2020 Influenza Vaccine (#1) 2025 03/18/2019, 2017 Hepatitis C Screening Completed 10/28/2022 , 10/28/2022, 01/22/2020 Goals Goal Patient Goal Type Associated Problems Recent Progress Patient-Stated? Author CCM Chronic Pain Care Plan Chronic Care Management No Fam Clayton, RN Note: Problem: Chronic Pain Goals: 1. Minimize further functional decline 2. Maximize quality of life 3. Control pain Strategies: - Activity/exercise program recommendation - Conservative stepwise pain medicine strategy with multi-disciplinary approach - Recommend healthy lifestyle strategies and compensatory methods as needed Medical Devices Implanted Type Area Staff Nurse Midwife Device Identifier Shelf Expiration Date Model / Serial / Lot [employer] [id number] Xcela 8fr 1.6mm 1 Lumen Low Profile Power Injectable Fill Suture - [id number] Implanted:Qty: 1 on 04/06/2020 at [facility] [employer] 12/23/2024 [id number] / / [id number] Procedures Procedure Name Priority Date/Time Associated Diagnosis Comments CT CHEST ABDOMEN PELVIS W CONTRAST Schedule Routine, Read Routine (OP Routine) 04/06/2025 1:20 PM EXTRUSION MANAGER Primary cancer of right upper lobe of lung (HCC) MRI BRAIN TUMOR W WO CONTRAST Schedule Routine, Read Routine (OP Routine) 04/06/2025 1:13 PM EXTRUSION MANAGER Malignant neoplasm metastatic to brain (HCC) POCT CREATININE - DEVICE Routine 04/06/2025 12:16 PM EXTRUSION MANAGER EGFR STAT 04/06/2025 11:56 AM EXTRUSION MANAGER Primary cancer of right upper lobe of lung (HCC) DIFFERENTIAL AUTO Routine 04/06/2025 11: 56 AM EXTRUSION MANAGER Primary cancer of right upper lobe of lung (HCC) CBC WITH AUTO DIFFERENTIAL Routine 04/06/2025 11:56 AM EXTRUSION MANAGER Primary cancer of right upper lobe of lung (HCC) COMPREHENSIVE METABOLIC PANEL STAT 04/06/2025 11:56 AM EXTRUSION MANAGER Primary cancer of right upper lobe of lung (HCC) HEPATITIS PANEL, ACUTE Routine 10/28/2022 1:03 AM CDT from Last 3 Months or Most Recently Relevant to Health Maintenance Results * CT Chest Abdomen Pelvis W Contrast (04/06/2025 1:20 PM EXTRUSION MANAGER) Anatomical Region Laterality Modality Body N/A Computed Tomogra phy 04/06/2025 2:31 PM EXTRUSION MANAGER Impressions 04/06/2025 2:48 PM EXTRUSION MANAGER 1. Stable posttreatment changes in the right [...] Rick Werner M.D. Narrative 04/06/2025 2:48 PM EXTRUSION MANAGER EXAMINATION: CT CHEST ABDOMEN PELVIS W CONTRAST [...] it. Electronically signed by: Rick Werner M.D. Charles Langley MD IMG CT PROCEDURES Final R esult * MRI Brain Tumor W WO Contrast (04/06/2025 1:13 PM EXTRUSION MANAGER) Anatomical Region Laterality Modality Head and Neck N/A Magnetic Resonan ce 04/06/2025 4:27 PM EXTRUSION MANAGER Impressions 04/06/2025 4:37 PM EXTRUSION MANAGER 1. Unchanged small enhancing lesion in the [...] Duke Parnell M.D. Narrative 04/06/2025 4:37 PM EXTRUSION MANAGER EXAMINATION: Magnetic resonance imaging (MRI) of the [...] it. Electronically signed by: Duke Parnell M.D. us Britt Rojas COURSEWARE DEVELOPER IMG MRI PROCEDURES Final Resu lt * POCT creatinine (04/06/2025 12:16 PM EXTRUSION MANAGER) Creatinine POC 0.9 0.6 - 1.1 mg/dL Blood 04/06/2025 12:1 6 PM EXTRUSION MANAGER 04/06/2025 12:16 PM EXTRUSION MANAGER Jovan Dorantes MD LAB POCT ORDERABLES - DEVICE Final Result [facility] [place] [address] * eGFR (04/06/2025 11:56 AM EXTRUSION MANAGER) eGFR 85 >=60 mL/min/1. 73 m2 Comment: Interpretive Data [...] interpretive data was last reviewed 2021. Blood 04/06/2025 11:5 6 AM EXTRUSION MANAGER 04/06/2025 11:56 AM EXTRUSION MANAGER us Charles Langley MD LAB BLOOD ORDERABLES Monica nicole Result [facility] [place] [address] * Differential, auto (04/06/2025 11:56 AM EXTRUSION MANAGER) Neutrophil abs 5.61 1.50 - 6.50 K/cumm Comment:Testing performed by : [facility], [address] [place] [address] Imm gran abs 0.01 0.00 - 0.10 K/cumm [facility] Lymphocyte abs 1.00 0.80 - 3.30 K/cumm [facility] Monocyte abs 0.75 0.20 - 0.80 K/cumm [facility] Eosinophil abs 0.07 0.00 - 0.50 K/cumm [facility] Basophil abs 0.04 0.00 - 0.10 K/cumm [facility] Neutrophil pct 75.1 % [facility] Comment: Interpretive Data Percent cell count reference ranges are not reported, since discordance with absolute values may lead to misinterpretation of CBC data. Current Interpretive Data was last revised on 2017. Imm gran pct 0.1 % [facility] Comment: Interpretive Data Percent cell count reference ranges are not reported, since discordance with absolute values may lead to misinterpretation of CBC data. Current Interpretive Data was last revised on 2017. Lymphocyte pct 13.4 % [facility] Comment: Interpretive Data Percent cell count reference ranges are not reported, since discordance with absolute values may lead to misinterpretation of CBC data. Current Interpretive Data was last revised on 2017. Monocyte pct 10.0 % [facility] Comment: Interpretive Data Percent cell count reference ranges are not reported, since discordance with absolute values may lead to misinterpretation of CBC data. Current Interpretive Data was last revised on 2017. Eosinophil pct 0.9 % [facility] Comment: Interpretive Data Percent cell count reference ranges are not reported, since discordance with absolute values may lead to misinterpretation of CBC data. Current Interpretive Data was last revised on 2017. Basophil pct 0.5 % [facility] Comment: Interpretive Data Percent cell count reference ranges are not reported, since discordance with absolute values may lead to misinterpretation of CBC data. Current Interpretive Data was last revised on 2017. Blood 04/06/2025 11:5 6 AM EXTRUSION MANAGER 04/06/2025 11:56 AM EXTRUSION MANAGER us Charles Langley MD LAB BLOOD ORDERABLES Monica rivera Result [facility] [place] [address] * (ABNORMAL) CBC with auto differential (04/06/2025 11:56 AM EXTRUSION MANAGER) WBC 7.48 3.80 - 9.90 K/cumm Comment:Testing performed by : [address] [address] Hgb 10.9(L) 11.9 - 15.5 g/dL [facility] Comment:Testing performed by : [address] [address] Hct 32.6(L) 35.6 - 45.5 % [facility] Comment:Testing performed by : [address] [address] Plt 178 150 - 400 K/cumm [facility] Comment:Testing performed by : [address] [address] MPV 10.6 9.1 - 12.3 fL [facility] RBC 3.72(L) 3.90 - 5.20 M/cumm [facility] MCV 87.6 81.3 - 96.4 fL [facility] MCH 29.3 27.1 - 33.3 pg [facility] MCHC 33.4 32.3 - 35.7 g/dL [facility] RDW CV 13.3 11.1 - 14.9 % [facility] RDW SD 43.1 35.7 - 48.1 fL [facility] NRBC abs 0.00 0.00 - 0.01 K/cumm [facility] ANC Prelim 5.61 1.50 - 6.50 K/cumm [facility] Comment: Interpretive Data The rapid ANC is a preliminary automated count and may vary from the final ANC (Neut Abs) reported in the WBC differential that follows. Current interpretive data was last revised 2024. Blood 04/06/2025 11:5 6 AM EXTRUSION MANAGER 04/06/2025 11:56 AM EXTRUSION MANAGER us Charles Langley MD LAB BLOOD ORDERABLES Monica rivera Result [facility] [place] [address] * Comprehensive metabolic panel (04/06/2025 11:56 AM EXTRUSION MANAGER) Pathologist [facility] Sodium 138 135 - 145 mmol/L Comment:Testing performed by : [facility], [address] [place] [address] Potassium, pl 3.9 3.3 - 4.9 mmol/L [facility] Chloride 103 97 - 110 mmol/L [facility] CO2 29 22 - 32 mmol/L [facility] Anion gap 6 2 - 15 mmol/L [facility] BUN 11 6 - 25 mg/dL [facility] Creatinine 0.79 0.60 - 1.10 mg/dL [facility] Glucose 91 70 - 199 mg/dL [facility] Comment: Interpretive Data Fasting glucose >/= 126 [...] interpretive data was last revised 2022. Calcium 8.9 8.5 - 10.3 mg/dL [facility] Bilirubin, total 0.4 0.1 - 1.2 mg/dL [facility] Protein, pl 6.9 6.5 - 8.5 g/dL [facility] Albumin 4.3 3.5 - 5.0 g/dL [facility] Alk phos 82 40 - 130 Units/L [facility] ALT 8 7 - 45 Units/L [facility] AST 16 10 - 45 Units/L [facility] Blood 04/06/2025 11:5 6 AM EXTRUSION MANAGER 04/06/2025 11:56 AM EXTRUSION MANAGER us Charles Langley MD LAB BLOOD ORDERABLES Monica l Result Performing Organization Address City/[facility] Co de Phone Number [facility] [place] [address] * Hepatitis panel, acute (10/28/2022 1:03 AM CDT) Hep A IgM Nonreactive Nonreactive [facility] Hep B core IgM Nonreactive Nonreactive [facility] Hep C Ab Nonreactive Nonreactive [facility] Comment:Antibodies to HCV no t detected. Does NOT exclude the possibility of recent exposure to HCV. Current interpretive data was last revised on 22 HepBsAg Nonreactive Nonreactive [facility] Blood 10/28/2022 1:03 AM CDT 10/28/2022 2:07 AM CDT us Perry Anderson MD LAB MICROBIOLOGY - GENER AL ORDERABLES Final Result [facility] [place] [address] from Last 3 Months or Most Recently Relevant to Health Maintenance Insurance [facility] Advance Directives For more information, please contact: [phone] * Full Code (Latest Code Status on File) Date Activated Date Inactivated Comments 10/27/2022 10:29 PM 11/05/2022 6:20 PM * Full Code Date Activated Date Inactivated Comments 07/26/2022 10:03 PM 08/02/2022 7:32 PM * Full Code Date Activated Date Inactivated Comments 04/06/2020 12:52 PM 04/06/2020 6:52 PM * Full Code Date Activated Date Inactivated Comments 12/21/2019 9:04 AM 12/24/2019 8:22 PM Care Teams Assistant Project Manager Relationship Specialty Start Date End Date Jovan Dorantes MD [address] [place] [address] PCP - General 12/21/19 Pasha Cason MD [address] [place] [address] Referring Physician Neurosurgery 12/24/19 Mel Luna, DEBI [address] [facility] [address]7B[address]C [place] [address] Nurse Practitioner Medical Oncology 06/17/20 Charles Langley MD [address] [place] [address] Medical Oncologist/Gas Fitter Helper Medical Oncology 07/01/20 Alan Tucker MD [address] [place] [address] Radiation Oncologist Radiation Oncology 11/02/21
== END 2025-04-08 16:03 | disposition home or self-care (01) ==
LOC: CHSLAB 16:04
PROVIDERS: PCP Family Medicine; Visit Provider Family Medicine
DX: R05.2 Subacute cough (principal)
CPT/HCPCS: 87637